=== PATIENT | female | born 1945 | race Caucasian/White ===

== ENCOUNTER → 2018-05-20 14:08 | Outpatient (CLI) | payer MEDICARE, OTHER, SELFPAY ==
[2018-05-20 15:08] LABS: Add Manual Diff / Slide Review NO; Eosinophils Percent Auto 2.2 % (2-4); Hematocrit 40.9 % (36-46); Hemoglobin 13.7 g/dL (12.0-16.0); Lymphocytes Percent Auto 55.2 % (25-40); Mean Corpuscular HGB Conc 33.6 % (30-36); Mean Corpuscular Hemoglobin 31.6 PG (26-34); Mean Corpuscular Volume 94.1 fL (80-100); Neutrophils Absolute Auto 1800 /uL (3000-5900); Neutrophils Percent Auto 33.6 % (50-75); Platelet Count 216 X10^3/uL (150-400); Red Blood Cell Count 4.35 X10^6/uL (4.0-5.2); Red Cell Distribution Width 13.3 % (11.6-14.8); White Blood Cell Count 5.3 X10^3/uL (4.5-11.0)
[2018-05-20 15:19] LABS: Alanine Aminotransferase 33 IU/L (9-52); Albumin Globulin Ratio 1.1 (1.0-2.8); Alkaline Phosphatase 121 U/L (38-126); Aspartate Aminotransferase 31 IU/L (14-36); Bilirubin Total 0.6 mg/dL (0.2-1.3); Blood Urea Nitrogen 18 mg/dL (7-17); Calcium 9.2 mg/dL (8.4-10.2); Carbon Dioxide 30 mmol/L (22-32); Chloride 101 mmol/L (98-107); Cholesterol 218 mg/dL (140-199); Estimated Glomerular Filt Rate > 60.0 mL/min (>60); Globulin 3.7 g/dL (1.7-4.1); Glucose 105 mg/dL (80-110); HDL Cholesterol 55 mg/dL (40-60); HEMOLYSIS 21 (0-50); LDL Cholesterol Calculated 146 mg/dL (<100); Potassium 3.1 mmol/L (3.4-5.1); Sodium 141 mmol/L (137-145); Total Protein 7.7 g/dL (6.3-8.2); Triglycerides 83 mg/dL (35-150)
[2018-05-20 16:36] LABS: TSH w/ Reflex to FT4 1.31 uIU/mL (0.47-4.68)
== END ==
PROVIDERS: PCP Family Medicine; Visit Provider Family Medicine
DX: R20.0 Anesthesia of skin (principal); I10 Essential (primary) hypertension
CPT/HCPCS: 36415; 80053; 80061; 84443; 85025

== ENCOUNTER → 2018-06-02 12:50 | Outpatient (CLI) | payer MEDICARE, OTHER, SELFPAY | PROVIDERS: Family Provider Family Medicine; PCP Family Medicine; Visit Provider Family Medicine | DX: G56.01 Carpal tunnel syndrome, right upper limb (principal) | CPT/HCPCS: 95885; 95886; 95911 ==

== ENCOUNTER 2018-08-27 21:01 | Emergency (ER) | payer MEDICARE, OTHER, SELFPAY ==
[2018-08-27 21:14] VITALS: BP 132/68; PULSE 123; RESP 26; TEMP 37.2; O2SAT 95; BMI 33.4
--- NOTE | 2018-08-27 21:26 | DI.RAD.S_ITS ---
PROCEDURE: XR CHEST 1V INDICATIONS: fever TECHNIQUE: One view of the chest was acquired. COMPARISON: None. FINDINGS: Surgical changes and devices: None. Lungs and pleura: No pleural effusions or pneumothorax. Patchy opacity noted in the left lung base tiny for aspiration versus pneumonia. Mediastinum: Mediastinal contours appear normal. Heart size is normal. Bones and chest wall: No suspicious bony lesions. Overlying soft tissues appear unremarkable. IMPRESSION: Left basilar patchy opacity concerning for aspiration versus pneumonia. Dictated by: Tiki Calix MD, PhD on 08/27/2018 at 21:44 Approved by: Tiki Calix MD, PhD on 08/27/2018 at 21:44
[2018-08-27 21:34] VITALS: BP 120/59; PULSE 97; RESP 21; O2SAT 96
--- NOTE | 2018-08-27 21:37 | ED_ITS ---
HPI - Abdominal Pain General Chief Complaint: Abdominal Pain Stated Complaint: STOMACH CRAMPS NO ENERGY TIRED ALL THE TIME Time Seen by Provider: 08/27/18 21:08 Source: patient Mode of arrival: ambulatory Limitations: no limitations History of Present Illness HPI narrative: Patient is 73-year-old female who presents with generalized weakness. She had her flu shot 4 days ago since then she has had shivering chills and generalized weakness. His all she has had decrease in appetite she forced herself to eat yesterday she has been able to keep down water. She has been unable to get warm and has been shaking. She denies any cough chest pain heart palpitations. She has had some mild abdominal discomfort a little bit worse this evening. She has put on 7 lb without eating. She denies any shortness of breath or orthopnea. Her abdominal pain comes and goes it is not localized it was all lower in her abdomen today it is more in the mid area. She denies painful or frequent urination. No blood in her stool. Onset (ago): day(s) Related Data Home Medications Medication Instructions Recorded Confirmed ASPIRIN (Aspirin) 81 mg PO Q DAY #0 04/14/12 08/27/18 cholecalciferol (vitamin D3) 5,000 5,000 unit PO DAILY 05/20/18 08/27/18 unit capsule flaxseed oil 1,000 mg capsule 1,000 mg PO DAILY 05/20/18 08/27/18 potassium chloride [Klor-Con M20] 1 tab PO DAILY 08/27/18 08/27/18 Previous Rx's Medication Instructions Recorded hydrochlorothiazide 25 mg tablet 25 mg PO QDAY #90 tab 05/20/18 omeprazole 20 mg capsule,delayed 20 mg PO QDAY #90 cap 05/20/18 release oxybutynin chloride ER 15 mg 15 mg PO QDAY #90 tab 05/20/18 tablet,extended release 24 hr levofloxacin [Levaquin] 750 mg PO DAILY #5 tab 08/28/18 Allergies Allergy/AdvReac Type Severity Reaction Status Date / Time oxycodone Allergy Mild DIZZY Verified 05/20/18 13:41 Review of Systems Review of Systems All systems reviewed & are unremarkable except as noted in HPI and below Constitutional Reports body ache(s), Reports chills, Reports fatigue, Reports fever(s), Denies frequent falls and Reports poor appetite ENT Ears, Nose, Mouth, and Throat: Denies change in voice, Denies dizziness, Denies neck pain and Denies sore throat Cardiovascular Denies chest pain, Denies irregular heart rhythm, Denies lightheadedness, Denies palpitations, Denies dyspnea, Denies dyspnea on exertion and Denies orthopnea Respiratory Denies cough, Denies dyspnea, Denies dyspnea on exertion and Denies wheezing Gastrointestinal Gastrointestinal: Reports as per HPI and Reports abdominal pain Genitourinary Denies hematuria, Denies flank pain, Denies urinary incontinence and Denies urinary urgency Musculoskeletal Denies neck pain and Denies numbness Integumentary/Breasts Denies pruritus, Denies erythema, Denies rash and Denies wounds Neurologic Denies behavioral changes, Denies confusion, Denies dizziness, Denies frequent falls and Denies numbness Psychiatric Denies behavioral changes and Denies confusion Endocrine Reports fatigue and Denies palpitations Allergic/Immunologic Denies wheezing [facility] Medical History GERD (gastroesophageal reflux disease) (Chronic) History of genitourinary disorders unknown (Chronic) Hypertension (Chronic) Surgical History History of partial hysterectomy (Acute) Status post surgery (06/15/11) Family History Father Chronic lung disease Mother Breast cancer Social History Smoking Status: Never smoker Comment: PCP: Dr. Islas Exam Initial Vital Signs Initial Vital Signs: Vital Signs Temperature 99.0 F 08/27/18 21:14 Pulse Rate 123 H 08/27/18 21:14 Respiratory Rate 26 H 08/27/18 21:14 Blood Pressure 132/68 08/27/18 21:14 Pulse Oximetry 95 08/27/18 21:14 GENERAL: Alert cooperative elderly female no acute distress nontoxic HEENT: Head atraumatic,EOMI, pupils reactive, face symmetric, dry mucous membranes, neck is supple no meningeal sign CARDIOVASCULAR: Regular rate and rhythm without murmurs, rubs or gallops. RESPIRATORY: Breath sounds equal bilaterally, no wheezes rales or rhonchi. ABDOMEN: Soft, minimal tenderness across the mid abdomen no right upper quadrant pain no lower abdominal pain : No CVA tenderness EXTREMITIES: Normal range of motion, no clubbing or edema. Neurovascularly intact NEUROLOGICAL: Alert and oriented x4.Normal gait and speech. Cranial nerves II through XII grossly intact. SKIN: Warm, dry, no laceration, no petechiae, no rashes or lesions. Scores CHADS-VASc Congestive heart failure: no Hypertension: yes Age 75 years or older: no Diabetes mellitus: no Stroke, TIA, or TE: no Vascular disease: no Age 65 to 74 years: yes Sex category (female): Female CHADS-VASc Score: 3 CURB-65 Confusion: No BUN >19mg/dL (>7mmol/L): Yes Respiratory rate greater or equal to 30: No SBP <90mmHg or DBP less or equal to 60mmHg: No Age 65 or Older: Yes CURB-65 Total: 2 Score 0-1 Outpatient care, Score 2 Inpt vs. Obs, Score 3 or over Inpt admit with ICU for score of 4-5 qSOFA Altered Mental Status (GCS <15): No Respiratory rate greater than/equal to 22: Yes Systolic blood pressure less than or equal to 100: No qSOFA Total: 1 0-1 Not High Risk 1-3 High risk SOFA SaO2/FIO2: 221-301 Platelets: >= 150 Bilirubin: < 1.2 mg/dL Hypotension: MAP >= 70 mmHg [place] Coma Scale: 15 Renal: Creatinine 1.2-1.9 mg/dL SOFA Score: 2 Course Course Narrative: SIRS, Sepsis, and Septic Shock Criteria from [employer] on All calculations should be rechecked by clinician prior to use RESULT SUMMARY: This patient meets sepsis criteria. Follow your guidelines for sepsis, which typically include aggressive fluid resuscitation, early, broad-spectrum anbiotics, ICU consultation, CVP evaluation, and occasionally pressors and transfusion. INPUTS: Temp >38?C (100.4?F) or < 36?C (96.8?F) ?> 0 = No Heart rate > 90 ?> 1 = Yes Respiratory rate > 20 or Boaz? < 32 mm Hg ?> 1 = Yes WBC > 12,000/mm?, < 4,000/mm?, or > 10% bands ?> 0 = No Suspected or present source of infection ?> 1 = Yes Lactic acidosis, SBP <90 or SBP drop ? 40 mm Hg of normal ?> 0 = No Severe sepsis with hypotension, despite adequate fluid resuscitation ?> 0 = No Evidence of ? 2 organs failing ?> 0 = No Orders Ordered: ED Orders 08/27/18 21:10 B Type Natriuretic Peptide Stat Complete Blood Count AUTO DIFF Stat Comprehensive Metabolic Panel Stat Lactate (Lactic Acid) Stat Lipase Stat Procalcitonin Stat Troponin & CK Cardiac Panel Stat 08/27/18 21:26 XR chest 1V Stat EKG-12 Lead Stat 08/27/18 21:50 Blood Culture Stat 08/27/18 22:17 CT abdomen pelvis w con Stat 08/27/18 23:15 Urinalysis Sreen (Dip Only) Stat Urine Microscopic Stat Discontinued Medications Sodium Chloride (Normal Saline 0.9%) 1,000 mls @ 150 mls/hr IV CONT FLAVIA Last Infusion: 08/28/18 00:12 Dose: 0 mls/hr Infusion: 08/27/18 22:24 Dose: 1,000 mls/hr Admin: 08/27/18 22:03 Dose: 150 mls/hr Levofloxacin (Levaquin) 750 mg in 150 mls @ 100 mls/hr IV NOW ONE Stop: 08/27/18 23:41 Last Infusion: 08/28/18 00:12 Dose: 0 mls/hr Admin: 08/27/18 22:19 Dose: 100 mls/hr Sodium Chloride (Normal Saline 0.9%) 1,000 mls @ 125 mls/hr IV CONT FLAVIA Last Infusion: 08/28/18 01:28 Dose: 125 mls/hr Admin: 08/28/18 00:38 Dose: 125 mls/hr Vital Signs - 8 hr 08/27/18 21:14 08/27/18 21:34 08/27/18 22:00 Temperature 99.0 F Pulse Rate 123 H 97 H 99 H Respiratory Rate 26 H 21 18 Blood Pressure 132/68 Blood Pressure [Left Arm] 120/59 L 114/62 Pulse Oximetry 95 96 99 08/27/18 23:00 08/27/18 23:49 08/28/18 00:38 Temperature 98.5 F Pulse Rate 89 90 83 Respiratory Rate 14 14 16 Blood Pressure Blood Pressure [Left Arm] 103/53 L 103/55 L 121/63 Pulse Oximetry 98 94 95 08/28/18 01:41 Temperature 98.4 F Pulse Rate 87 Respiratory Rate 22 Blood Pressure 120/59 L Blood Pressure [Left Arm] Pulse Oximetry 95 MDM - Abdominal Pain Medical Records Attestation: I reviewed the patient's medical records. Lab Data Attestation: I reviewed the patient's lab results. Result diagrams: 08/27/18 21:10 08/27/18 21:10 Lab Results 08/27/18 08/27/18 08/27/18 Range/Units 21:10 21:10 21:10 WBC 7.6 (4.5-11.0) X10^3/uL RBC 4.02 (4.0-5.2) X10^6/uL Hgb 12.6 (12.0-16.0) g/dL Hct 37.6 (36-46) % MCV 93.6 (80-100) fL MCH 31.3 (26-34) PG MCHC 33.4 (30-36) % RDW 13.7 (11.6-14.8) % Plt Count 163 (150-400) X10^3/uL Neut % (Auto) 79.2 H (50-75) % Lymph % (Auto) 12.2 L (25-40) % [place] % (Auto) 8.4 (3-14) % Eos % (Auto) 0.2 L (2-4) % Baso % (Auto) 0.0 (0-2) % Neut # (Auto) 6000 H (4127-0715) /uL Sodium 131 L (137-145) mmol/L Potassium 3.3 L (3.4-5.1) mmol/L Chloride 95 L (98-107) mmol/L Carbon Dioxide 26 (22-32) mmol/L BUN 24 H (7-17) mg/dL Creatinine 1.20 H (0.52-1.04) mg/dL Estimated GFR 44.0 L (>60) mL/min BUN/Creatinine Ratio 20.0 (6-22) Glucose 126 H (80-110) mg/dL Lactate (0.7-2.1) mmol/L Calcium 8.5 (8.4-10.2) mg/dL Total Bilirubin 0.7 (0.2-1.3) mg/dL AST 31 (14-36) IU/L ALT 52 (9-52) IU/L Alkaline Phosphatase 174 H (38-126) U/L Total Creatine Kinase 37 (30-135) U/L CK-MB (CK-2) TNP CK-MB (CK-2) Rel Index TNP Troponin I < 0.012 (0.01-0.034) ng/mL B-Natriuretic Peptide 225.0 H (<100) Total Protein 6.8 (6.3-8.2) g/dL Albumin 3.3 L (3.5-5.0) g/dL Globulin 3.5 (1.7-4.1) g/dL Albumin/Globulin Ratio 0.9 L (1.0-2.8) Lipase 16 L (23-300) U/L Procalcitonin 19.26 H (<0.5) ng/mL Urine Color Urine Appearance Urine pH (4.5-8.0) Ur Specific [place] (1.000-1.035) Urine Protein (Negative) Urine Glucose (UA) (Normal) g/dL Urine Ketones (NEGATIVE) Urine Occult Blood (Negative) Urine Nitrate (Negative) Urine Bilirubin (NEGATIVE) Urine Urobilinogen (0.2) E.U./dL Ur Leukocyte Esterase (NEGATIVE) Urine RBC Urine WBC (0-5/HPF) Ur Squamous Epith Cells Urine Bacteria (None) Ur Culture Indicated? Micro UA Comment 08/27/18 08/27/18 Range/Units 21:10 23:15 WBC (4.5-11.0) X10^3/uL RBC (4.0-5.2) X10^6/uL Hgb (12.0-16.0) g/dL Hct (36-46) % MCV (80-100) fL MCH (26-34) PG MCHC (30-36) % RDW (11.6-14.8) % Plt Count (150-400) X10^3/uL Neut % (Auto) (50-75) % Lymph % (Auto) (25-40) % [place] % (Auto) (3-14) % Eos % (Auto) (2-4) % Baso % (Auto) (0-2) % Neut # (Auto) (5996-2447) /uL Sodium (137-145) mmol/L Potassium (3.4-5.1) mmol/L Chloride (98-107) mmol/L Carbon Dioxide (22-32) mmol/L BUN (7-17) mg/dL Creatinine (0.52-1.04) mg/dL Estimated GFR (>60) mL/min BUN/Creatinine Ratio (6-22) Glucose (80-110) mg/dL Lactate 0.9 (0.7-2.1) mmol/L Calcium (8.4-10.2) mg/dL Total Bilirubin (0.2-1.3) mg/dL AST (14-36) IU/L ALT (9-52) IU/L Alkaline Phosphatase (38-126) U/L Total Creatine Kinase (30-135) U/L CK-MB (CK-2) CK-MB (CK-2) Rel Index Troponin I (0.01-0.034) ng/mL B-Natriuretic Peptide (<100) Total Protein (6.3-8.2) g/dL Albumin (3.5-5.0) g/dL Globulin (1.7-4.1) g/dL Albumin/Globulin Ratio (1.0-2.8) Lipase (23-300) U/L Procalcitonin (<0.5) ng/mL Urine Color Yellow Urine Appearance Clear Urine pH 5.5 (4.5-8.0) Ur Specific [place] <=1.005 (1.000-1.035) Urine Protein Trace H (Negative) Urine Glucose (UA) Negative (Normal) g/dL Urine Ketones Negative (NEGATIVE) Urine Occult Blood Trace-lysed (Negative) Urine Nitrate Negative (Negative) Urine Bilirubin Negative (NEGATIVE) Urine Urobilinogen 0.2 (0.2) E.U./dL Ur Leukocyte Esterase Negative (NEGATIVE) Urine RBC Not Reportable Urine WBC 1-5/hpf (0-5/HPF) Ur Squamous Epith Cells 0-1 /hpf Urine Bacteria Occasional (0-1) (None) Ur Culture Indicated? Cult not indicated Micro UA Comment Not Reportable Point of care testing: Urine Dip Bedside Urine Glucose Negative Bedside Urine Bilirubin - Negative Bedside Urine Ketone - Negative Urine Specific [place] 1.010 Bedside Urine Occult Blood - Negative Bedside Urine pH 6.0 Bedside Urine Protein +/- 15 Bedside Urine Urobilinogen - Negative Bedside Urine Nitrite - Negative Bedside Urine Leukocytes - Negative Esterase Imaging Data Chest x-ray: Radiologist's impression: PROCEDURE: XR CHEST 1V INDICATIONS: fever TECHNIQUE: One view of the chest was acquired. COMPARISON: None. FINDINGS: Surgical changes and devices: None. Lungs and pleura: No pleural effusions or pneumothorax. Patchy opacity noted in the left lung base tiny for aspiration versus pneumonia. Mediastinum: Mediastinal contours appear normal. Heart size is normal. Bones and chest wall: No suspicious bony lesions. Overlying soft tissues appear unremarkable. IMPRESSION: Left basilar patchy opacity concerning for aspiration versus pneumonia. 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 No evidence of obstructive uropathy. 8 cm left lower abdominal wall hernia containing loop of bowel with no bowel obstruction. No diverticulitis or colitis. Normal appendix. Status post hysterectomy. Moderately size hiatal her hernia containing proximal stomach ECG Data Attestation: I personally reviewed and interpreted this ECG as follows: Prior ECG tracings: available for review Interpretation: Irregular AFib rate 105 AFib new from previous EKG EKG 2.: Atrial fibrillation rate 86 P waves are not identified no ischemia MDM Narrative Medical decision making narrative: Patient has had rigors throughout the week. She is dehydrated with increased creatinine and BUN. She has no leukocytosis no symptoms is or signs of pneumonia but has possible pneumonia on x-ray. Complaining of abdominal discomfort but no specific abdominal pain. Urine is positive for leukocytes, CT does show inflammation around the left kidney possible early pyelonephritis. She does not have signs or symptoms of UTI in urine is negative. She does again have a bacterial infection she has procalcitonin of 19. She has no headache or neck pain to suggest meningitis She also has new onset AFib she takes an aspirin daily as and took 1 this morning. 1:10 a.m.: I spoke with Dr. Ramsey. Concern for infection but unsure where the infection is. She does not have signs or symptoms but she does have a fever and chills all an elevated procalcitonin. She also has new onset atrial fibrillation which is currently rate controlled. She has a low chads score and takes aspirin. Discussed admission versus close follow-up. At this time it was elected to have close follow-up is with PCP next week. I discussed all findings with the patient , Education has been performed regarding treatment plan, diagnosis, warning signs and symptoms and all concerns have been addressed. Verbally agree with and understood all of the above. Discharge Plan Departure Patient Disposition: Home Clinical Impression: Pneumonia, Atrial fibrillation Discharge Date/Time: 08/28/18 01:43 Interventions: ED Discharge Assessment Last Done: 08/28/18 01:41 Instructions: Pneumonia-Adult, Atrial Fibrillation Activity Restrictions/Additional Instructions: *You have been diagnosed with possible pneumonia and new onset atrial fibrillation *What to do: Chest x-ray does show possible pneumonia and CT shows possible kidney infection however you have a no signs or symptoms for this. You are dehydrated and have new onset atrial fibrillation. You will need close all follow up with your doctor. *Continue to take medications as directed Levaquin 750 mg for 5 days-faxed to [facility] in [facility] *Follow up with your primary care provider in 2-3 days, call Wednesday to schedule appointment soon as possible *Return to ER if you should have increasing fatigue, confusion, heart palpitations, dizziness, lightheadedness, inability to tolerate oral fluids or any new, worsening or concerning symptoms Prescriptions: New levofloxacin [Levaquin] 750 mg tablet 750 mg PO DAILY Qty: 5 RF: 0 No Action ASPIRIN (Aspirin) 81 mg PO Q DAY Qty: 0 RF: 0 flaxseed oil 1,000 mg capsule 1,000 mg PO DAILY RF: 0 cholecalciferol (vitamin D3) 5,000 unit capsule 5,000 unit PO DAILY RF: 0 oxybutynin chloride 15 mg tablet extended release 24hr 15 mg PO QDAY Qty: 90 RF: 3 omeprazole 20 mg capsule,delayed release(DR/EC) 20 mg PO QDAY Qty: 90 RF: 3 hydrochlorothiazide 25 mg tablet 25 mg PO QDAY Qty: 90 RF: 3 potassium chloride [Klor-Con M20] 20 mEq tablet,ER particles/crystals 1 tab PO DAILY RF: 0 Referrals: Ki Islas MD [Primary Care Provider] -
[2018-08-27 21:38] LABS: Add Manual Diff / Slide Review NO; Eosinophils Percent Auto 0.2 % (2-4); Hematocrit 37.6 % (36-46); Hemoglobin 12.6 g/dL (12.0-16.0); Lymphocytes Percent Auto 12.2 % (25-40); Mean Corpuscular HGB Conc 33.4 % (30-36); Mean Corpuscular Hemoglobin 31.3 PG (26-34); Mean Corpuscular Volume 93.6 fL (80-100); Monocytes Percent Auto 8.4 % (3-14); Neutrophils Absolute Auto 6000 /uL (3000-5900); Neutrophils Percent Auto 79.2 % (50-75); Platelet Count 163 X10^3/uL (150-400); Red Blood Cell Count 4.02 X10^6/uL (4.0-5.2); Red Cell Distribution Width 13.7 % (11.6-14.8); White Blood Cell Count 7.6 X10^3/uL (4.5-11.0)
[2018-08-27 21:40] LABS: Lactate (Lactic Acid) 0.9 mmol/L (0.7-2.1)
[2018-08-27 21:46] LABS: Alanine Aminotransferase 52 IU/L (9-52); Albumin 3.3 g/dL (3.5-5.0); Albumin Globulin Ratio 0.9 (1.0-2.8); Alkaline Phosphatase 174 U/L (38-126); Aspartate Aminotransferase 31 IU/L (14-36); Bilirubin Total 0.7 mg/dL (0.2-1.3); Blood Urea Nitrogen 24 mg/dL (7-17); Calcium 8.5 mg/dL (8.4-10.2); Carbon Dioxide 26 mmol/L (22-32); Chloride 95 mmol/L (98-107); Creatine Kinase 37 U/L (30-135); Globulin 3.5 g/dL (1.7-4.1); Glucose 126 mg/dL (80-110); HEMOLYSIS < 15 (0-50); Lipase 16 U/L (23-300); Potassium 3.3 mmol/L (3.4-5.1); Sodium 131 mmol/L (137-145); Total Protein 6.8 g/dL (6.3-8.2)
[2018-08-27 21:58] LABS: Troponin I < 0.012 ng/mL (0.01-0.034)
[2018-08-27 22:00] VITALS: BP 114/62; PULSE 99; RESP 18; O2SAT 99
[2018-08-27 22:02] LABS: Procalcitonin 19.26 ng/mL (<0.5)
[2018-08-27] MEDS: SODIUM CHLORIDE 0.9% 1,000 ML 150 ML IV (22:03)
--- NOTE | 2018-08-27 22:17 | DI.CT.S_ITS ---
PROCEDURE: CT ABDOMEN PELVIS W CON INDICATIONS: lower ab pain with fever TECHNIQUE: After the administration of oral and intravenous contrast, 5 mm thick sections acquired from the diaphragms to the symphysis. 5 mm thick coronal and sagittal reformats were performed. For radiation dose reduction, the following was used: automated exposure control, adjustment of mA and/or kV according to patient size. COMPARISON: None. FINDINGS: Image quality: Excellent. ABDOMEN: Lung bases: Small left pleural effusion is present. Heart size is normal. Solid organs: Liver is normal in size and enhancement. Gallbladder is within normal limits. Biliary system is non-dilated. There is a partially exophytic mass involving the pancreatic tail measuring roughly 20 mm with a region of calcification medially. Pancreas otherwise enhances normally. Spleen is normal in size and enhancement. No adrenal nodules. Scattered regions of mild patchy hypoenhancement within the bilateral renal parenchyma. Mild perinephric fat stranding bilaterally. Peritoneum and bowel: Large hiatal hernia. Stomach, small bowel, and colon loops are normal in caliber and wall thickness. Normal appendix. Trace free fluid in the pelvis. No pneumoperitoneum. Nodes and vessels: No retroperitoneal or mesenteric adenopathy. Aorta and inferior vena cava are normal in caliber. Miscellaneous: 83 mm diameter left anterior pelvic wall hernia containing small bowel. No evidence of bowel strangulation, nor obstruction. PELVIS: Genitourinary: Bladder wall thickness is normal. Miscellaneous: No inguinal hernias or adenopathy. Bones: No suspicious bony lesions. No vertebral body compression fractures. IMPRESSION: 1. Bilateral pyelonephritis. 2. Pancreatic mass, possibly represent malignancy. 3. Small bowel containing anterior pelvic wall hernia with no evidence of bowel strangulation, nor obstruction. 4. Normal appendix. 5. Large hiatal hernia. 6. Small left pleural effusion. 6. Findings discussed with Dr. Mcdonald on 08.28.18 at 0915 hrs. Dictated by: Missael Claire M.D. on 08/28/2018 at 9:15 Approved by: Missael Claire M.D. on 08/28/2018 at 9:21
[2018-08-27] MEDS: levoFLOXacin 750 MG/150 ML PIGGYBACK 100 MG IV (22:19)
[2018-08-27 23:00] VITALS: BP 103/53; PULSE 89; RESP 14; O2SAT 98
[2018-08-27 23:36] LABS: Bacteria Urine Occasional (0-1); Squamous Epithelial Cell Urine 0-1 /HPF; WBC Urine 1-5/HPF (0-5/HPF)
[2018-08-27 23:37] LABS: Culture Indicated Urine Cult Not Indicated
[2018-08-27 23:49] VITALS: BP 103/55; PULSE 90; RESP 14; O2SAT 94
[2018-08-27 23:58] LABS: Appearance Urine UA CLEAR; Bilirubin Urine UA NEGATIVE (NEGATIVE); Color Urine UA YELLOW; Glucose Urine UA NEGATIVE (Normal); Ketones Urine UA NEGATIVE (NEGATIVE); Leukocyte Esterase Urine UA NEGATIVE (NEGATIVE); Nitrite Urine UA NEGATIVE (Negative); Occult Blood Urine UA TRACE-LYSED (Negative); Protein Urine UA TRACE (Negative); Specific Gravity Urine UA <=1.005 (1.000-1.035); Urobilinogen Urine UA 0.2 E.U./dL (0.2); pH Urine UA 5.5 (4.5-8.0)
[2018-08-28 00:38] VITALS: BP 121/63; PULSE 83; RESP 16; TEMP 36.9; O2SAT 95
[2018-08-28] MEDS: SODIUM CHLORIDE 0.9% 1,000 ML 125 ML IV (00:38)
[2018-08-28 01:41] VITALS: BP 120/59; PULSE 87; RESP 22; TEMP 36.9; O2SAT 95
[2018-08-29 03:50] LABS: Enterococcus species Not Detected (Not Detect); Listeria monocytogenes Not Detected (Not Detect); Staphylococcus species Not Detected (Not Detect); Streptococcus agalactiae (Gr B Not Detected (Not Detect); Streptococcus pneumonia Not Detected (Not Detect); Streptococcus pyogenes (Gr A) Not Detected (Not Detect); Streptococcus species Not Detected (Not Detect)
[2018-08-29 03:51] LABS: Acinetobacter baumannii Not Detected (Not Detect); Enterobacteriaceae species Detected (Not Detect); KPC (carbapenem-resist gene) Not Detected (Not Detect)
[2018-08-29 03:52] LABS: Candida albicans Not Detected (Not Detect); E. coli Detected (Not Detect); Enterobacter cloacae complex Not Detected (Not Detect); Haemophilus influenzae Not Detected (Not Detect); Neisseria meningitidis Not Detected (Not Detect); Proteus species Not Detected (Not Detect); Pseudomonas aeruginosa Not Detected (Not Detect); Serratia marcescens Not Detected (Not Detect)
[2018-08-29 03:53] LABS: Candida glabrata Not Detected (Not Detect); Candida krusei Not Detected (Not Detect); Candida parapsilosis Not Detected (Not Detect); Candida tropicalis Not Detected (Not Detect)
== END 2018-08-28 01:43 | disposition home or self-care (01) ==
PROVIDERS: Emergency Provider Emergency Medicine; Family Provider Family Medicine; PCP Family Medicine
DX: J18.9 Pneumonia, unspecified organism (principal); I48.91 Unspecified atrial fibrillation
CPT/HCPCS: 36415; 36591; 71045; 74177; 80053; 81003; 81015; 82550; 83605; 83690; 83880; 84145; 84484; 85025; 87040; 87077; 87150; 87186; 87205; 93005; 93010; 96360; 99285; J1956; Q9967

== ENCOUNTER → 2018-08-29 14:09 | Outpatient (CLI) | payer MEDICARE, OTHER, SELFPAY ==
[2018-08-29 15:22] LABS: Hematocrit 40.7 % (36-46); Hemoglobin 13.8 g/dL (12.0-16.0); Mean Corpuscular HGB Conc 33.9 % (30-36); Mean Corpuscular Hemoglobin 31.2 PG (26-34); Mean Corpuscular Volume 92.2 fL (80-100); Platelet Count 190 X10^3/uL (150-400); Red Blood Cell Count 4.41 X10^6/uL (4.0-5.2); Red Cell Distribution Width 14.2 % (11.6-14.8); White Blood Cell Count 6.1 X10^3/uL (4.5-11.0)
[2018-08-29 15:24] LABS: BUN Creatinine Ratio 17.8 (6-22); Blood Urea Nitrogen 16 mg/dL (7-17); Calcium 9.2 mg/dL (8.4-10.2); Carbon Dioxide 32 mmol/L (22-32); Chloride 93 mmol/L (98-107); Estimated Glomerular Filt Rate > 60.0 mL/min (>60); Glucose 97 mg/dL (80-110); HEMOLYSIS < 15 (0-50); Potassium 3.6 mmol/L (3.4-5.1); Sodium 136 mmol/L (137-145)
[2018-08-29 15:44] LABS: Procalcitonin 4.64 ng/mL (<0.5)
[2018-08-29 16:22] LABS: Total Cells Counted 100
[2018-08-29 16:23] LABS: Neutrophils Absolute Manual 5368 /uL (3000-5900); RBC Morphology Normal Morphology
[2018-08-31 15:12] LABS: Cancer (Carbohydrate) Ag 19-9 12 U/mL (< 34)
== END ==
PROVIDERS: Family Provider Family Medicine; PCP Family Medicine; Visit Provider Family Medicine
DX: J18.9 Pneumonia, unspecified organism (principal); I10 Essential (primary) hypertension; K86.9 Disease of pancreas, unspecified; R97.8 Other abnormal tumor markers
CPT/HCPCS: 36415; 80048; 84145; 85025; 86301

== ENCOUNTER → 2018-09-09 12:33 | Outpatient (CLI) | payer MEDICARE, OTHER, SELFPAY ==
--- NOTE | 2018-09-09 12:35 | DI.ECHO.S_ITS ---
[facility]---------+ [facility] +---------+ : : [address] : : : : [id number] : : : : Phone: [phone] Echocardiogram Report + + :Name: CLARIBEL SANCHEZ Study Date: 09/09/2018 Height: 66 in : :[facility] Exam Location: IS Weight: 195 lb : : Gender: Female BSA: 2.0 m2 : :: 1945 Age: 73 yrs BP: 130/80 mmHg: :Reason For Study: New onset A-Fib : :Ordering Physician: Dr. Emerson : :[place] Performed By: Hailee Page : + + Interpretation Summary 1) Normal left ventricular thickness, size, wall motion, and systolic function (EF 60-65%). 2) Mildly enlarged right ventricle with mildly reduced function. 3) Diastolic parameters suggest a pseudonormalization pattern, consistent with probable elevated filling pressures. 4) The left atrium is severely dilated. The right atrium is moderately dilated. 5) There is mild aortic stenosis (mean gradient 9mmHg, valve area 1.6cm2, severity ratio 0.4). 6) No prior Echo available for comparison. Procedure: A two-dimensional transthoracic echocardiogram with color flow and Doppler was performed. The study quality was technically adequate. There is no prior echocardiogram noted for this patient. The patient was in atrial fibrillation with heart rates between 63-82 bpm during the exam. Left Ventricle: The left ventricle is normal in size. Left ventricular wall thickness is normal. The ejection fraction is estimated to be 60-65%. Left ventricular systolic function is normal without focal wall motion abnormalities. Diastolic parameters suggest a pseudonormalization pattern, consistent with probable elevated filling pressures. Right Ventricle: The right ventricle is mildly dilated. Right ventricular systolic function is mildly reduced. Atria: The left atrium is severely dilated. The right atrium is moderately dilated. There is no Doppler evidence for an interatrial shunt. Mitral Valve: The mitral valve leaflets are mildly calcified. There is mild mitral annular calcification. There is trace mitral regurgitation. Aortic Valve: The aortic valve is trileaflet. The aortic valve is mildly calcified. Leaflet mobility is minimally reduced. There is mild aortic stenosis. No aortic regurgitation is present. Tricuspid Valve: The tricuspid valve is normal in structure and function. There is trace tricuspid regurgitation. The right ventricular systolic pressure is estimated to be at least 28 mmHg based on an estimated right atrial pressure of 8 mm Hg. Pulmonic Valve: The pulmonic valve is not well visualized. There is a trace or physiologic amount of pulmonic regurgitation. Great Vessels: The aortic root is normal size. The ascending aorta is at the upper limits of normal in size. The pulmonary artery is not well visualized, but is probably normal size. The IVC is dilated (diameter is greater than 2.1 cm) yet it collapses greater than 50% with a sniff. This suggests a right atrial pressure of 8 mm Hg. Pericardium/ Pleura There is no pericardial effusion. There is no pleural effusion. MMode/2D Measurements & Calculations LVIDd: 4.6 cm LVOT diam: 2.2 cm LVIDs: 3.2 cm Ao root diam: 2.9 cm FS: 30.0 % asc Aorta Diam: 3.4 cm EPSS: 0.51 cm IVSd: 0.98 cm LVPWd: 0.88 cm LV fox. diameter/BSA (cm/m^2): 2.3 LV sys. diameter/BSA (cm/m^2): 1.6 LA A2 area: 29.6 cm2 RA long axis: 5.4 cm LA A4 area: 31.4 cm2 RA area: 23.3 cm2 LA length (vol): 6.2 cm RA vol: 85.5 ml LA vol: 127.2 ml RA : 43.2 ml/m2 LA vol index: 64.3 ml/m2 IVC diam: 2.4 cm TAPSE: 1.8 cm Doppler Measurements & Calculations Ao V2 max: 193.5 cm/sec LVOT Max Inocencio: 77.5 cm/sec Ao V2 mean: 140.5 cm/sec LV V1 max P.4 mmHg Ao max P.0 mmHg LV V1 VTI: 15.6 cm Ao mean P.6 mmHg CANDIE(I,D): 1.6 cm2 Ao V2 VTI: 39.0 cm CANDIE(V,D): 1.6 cm2 sev ratio: 0.40 CANDIE indexed to BSA (cm^2/m^2): 0.79 MV E max inocencio: 128.5 cm/sec TR max inocencio: 220.8 cm/sec Med Peak E' Inocencio: 8.1 cm/sec TR max P.5 mmHg E/E' med: 16.0 PA V2 max: 60.8 cm/sec Lat Peak E' Inocencio: 8.5 cm/sec PA V2 mean: 41.8 cm/sec E/E' lat: 15.1 PA mean P.78 mmHg E/e' average: 15.5 PA Accel Time: 0.09 sec MV P1/2t: 50.2 msec MVA(VTI): 2.2 cm2 MV V2 mean: 65.8 cm/sec MV P1/2t max inocencio: 127.7 cm/sec MV mean P.4 mmHg MVA(P1/2t): 4.4 cm2 MV V2 VTI: 27.3 cm Reading Physician:05:21 PM
== END ==
PROVIDERS: PCP Family Medicine; Visit Provider Family Medicine
DX: I35.0 Nonrheumatic aortic (valve) stenosis (principal); I48.91 Unspecified atrial fibrillation
CPT/HCPCS: 93306

== ENCOUNTER → 2018-10-12 10:56 | Outpatient (CLI) | payer MEDICARE, OTHER, SELFPAY ==
--- NOTE | 2018-10-28 14:28 | PM.CARDMON.1 ---
Pattern Drafter Report Referral & Results Date Patient Seen: 10/12/18 Requesting provider: Ki Islas Indication: Atrial fibrillation Duration of monitoring (days): 7 Diary information: No diary entries or patient triggered events were recorded Data: Patient was in atrial fibrillation for the duration of the monitoring period. Minimum heart rate was 52 beats per minute at 05:51 on 10/15/2018 Maximum heart rate was 192 beats per minute at 19:00 on 10/15/2018 Less than 1% of identified beats were ventricular ectopic in origin Patient's overall heart rate was less than 100 for the majority of the time Impression: Persistent/chronic atrial fibrillation with what appears to be adequate rate control Occasional PVCs Clinical correlation suggested
== END ==
PROVIDERS: PCP Family Medicine; Visit Provider Family Medicine
DX: I48.91 Unspecified atrial fibrillation (principal)
CPT/HCPCS: 0296T; 0298T

== ENCOUNTER → 2018-10-20 09:10 | Outpatient (CLI) | payer MEDICARE, OTHER, SELFPAY ==
--- NOTE | 2018-10-20 10:31 | PM.TREADMILL ---
Cardiac Stress Test Report Referral & Results Date Patient Seen: 10/20/18 Requesting provider: Ki Islas Indication: New onset atrial fibrillation Rest ECG: AFib with controlled ventricular response at rest Procedure Note: Today following both written and verbal informed consent the patient was exercised according to a standard Garo protocol patient went for a total of 4 min 23 sec achieving a maximum heart rate of 196 maximum systolic blood pressure of 180. This is approximately 7.0 METS. Exercise was terminated at this point because of patient was unable to keep up with the treadmill safely. Patient was also given Cardiolite through a previously started Hep-Lock IV by the nuclear power reactor operator approximately 1 minute prior to the cessation of exercise. Patient was quickly tachycardic with her atrial fibrillation. Occasional PVCs including a single cup and a single triplets were identified No clear ST-T segment changes. She did have some upsloping ST segment depression in lateral leads during exercise that rapidly resolved with cessation of activity suggesting a nonischemic nature Functional aerobic impairment rated 0 on the sedentary scale Impression: No evidence of ischemia on ECG tracing Tachycardic ventricular response to activity in the setting of atrial fibrillation Average exercise capacity Perfusion imaging to be reported separate Dysrhythmia as above. Please note: Actual ECG tracings can be found in the PACS system.
--- NOTE | 2018-10-24 08:03 | DI.NM.S_ITS ---
DATE OF SERVICE: 10/20/2018 PROCEDURE: Exercise perfusion study. INDICATION: New onset atrial fibrillation. RADIOPHARMACEUTICAL: 25.9 mCi technetium-99 Myoview IV was injected at stress and 25.3 mCi technetium-99 Myoview IV was injected at rest. CARDIAC STRESS: The patient underwent an exercise perfusion study under the supervision of an attending staff. She walked on Garo protocol for 4 minutes and 23 seconds and achieved a maximum heart rate of about 186, which was 120% of target heart rate. There was normal blood pressure response. The patient was unable to walk on treadmill. Baseline EKG revealed atrial fibrillation, and rate was about [address]-T changes. There was enhanced chronotropic response. The patient developed very fast heart rate during exercise. She remained in atrial fibrillation. No new significant arrhythmias. At peak exercise, there was about 1 to 2-mm some down-sloping ST depression in lead V4 to V6, which got quickly returned back to baseline within 1 minute in recovery. RAW DATA: There was breast shadow seen. The patient's weight is about 205 pounds. GATED STUDY: Stress LV ejection fraction was 70% percent without any obvious wall motion abnormalities. No transient ischemic dilatation. TID ratio 1.13, which is within normal limits. Resting end-diastolic volume 92 mL. Lung/heart ratio is 0.40, which is within normal limits. MYOCARDIAL PERFUSION: Stress supine and resting supine images revealed large- sized moderately decreased perfusion of anterior wall, anterior apex, distal anterolateral wall, which got completed resolved during prone images, suggestive of breast tissue attenuation artifact. CONCLUSION: I will call this study a normal myocardial perfusion study with evidence of breast tissue attenuation artifact which got resolved during prone images. The patient has baseline atrial fibrillation. During exercise, the patient has an enhanced chronotropic response with very fast ventricular rate up to 186 beats per minute. Functional aerobic impairment positive 20%. She achieved 7 minutes of workload. Please consider better rate control approach and Cardiology evaluation. Aidee Simons - DINESH/serjio/ts doc#: [id number]/job#: [id number] dd: 10/21/2018 12:40:00 dt: 10/22/2018 07:24:00 DICTATING MD/COPIES TO: Lucas Salinas MD COPIES MNE: SUSAN
== END ==
PROVIDERS: PCP Family Medicine; Visit Provider Family Medicine
DX: I48.91 Unspecified atrial fibrillation (principal)
CPT/HCPCS: 78452; 93016; 93017; 93018; A9502

== ENCOUNTER 2018-11-16 10:48 | Emergency (ER) | payer MEDICARE, OTHER, SELFPAY ==
[2018-11-16 10:55] VITALS: BP 143/76; PULSE 92; RESP 15; TEMP 36.6; O2SAT 96; BMI 32.3
--- NOTE | 2018-11-16 12:00 | ED_ITS ---
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 Patient was discharged the next day. She was told by the surgeon that everything went well. She states that since Wednesday she has had pain around her right hip. No fevers. She states she does not have any discomfort when she is lying still but does have discomfort when she moves. No problems breathing. No abdominal pain. Did have a bowel movement recently. No urinary symptoms. Related Data Home Medications Medication Instructions Recorded Confirmed cholecalciferol (vitamin D3) 5,000 5,000 unit PO DAILY 05/20/18 11/16/18 unit capsule flaxseed oil 1,000 mg capsule 1,000 mg PO DAILY 05/20/18 11/16/18 potassium chloride [Klor-Con M20] 1 tab PO DAILY 08/27/18 11/16/18 hydrochlorothiazide 25 mg PO DAILY 11/16/18 11/16/18 hydrocodone-acetaminophen 1 tab PO PRN PRN 11/16/18 11/16/18 omeprazole 20 mg PO DAILY 11/16/18 11/16/18 oxybutynin chloride 15 mg PO DAILY 11/16/18 11/16/18 polyethylene glycol 3350 17 g PO PRN PRN 11/16/18 11/16/18 Previous Rx's Medication Instructions Recorded apixaban 5 mg tablet 5 mg PO BID #180 tab 09/05/18 docusate sodium [Colace] 100 mg PO DAILY PRN #14 cap 11/16/18 hydrocodone-acetaminophen [[place]] 1 tab PO Q4-6H PRN #10 tab 11/16/18 Allergies Allergy/AdvReac Type Severity Reaction Status Date / Time oxycodone Allergy Mild DIZZY Verified 11/16/18 10:55 Review of Systems Constitutional Denies fatigue and Denies fever(s) Cardiovascular Denies chest pain and Denies dyspnea Respiratory Denies dyspnea Gastrointestinal Gastrointestinal: Denies abdominal pain, Denies nausea and Denies vomiting Genitourinary Reports hematuria and Denies dysuria Musculoskeletal Denies myalgias, Denies deformity and Reports arthralgias (Right hip) Integumentary/Breasts Denies rash Endocrine Denies fatigue Hematologic/Lymphatic Comments: Not on anticoagulation PFSH Social History marital status: Smoking Status: Never smoker alcohol intake: never substance use type: does not use Exam Initial Vital Signs Initial Vital Signs: Vital Signs Temperature 97.9 F 11/16/18 10:55 Pulse Rate 92 H 11/16/18 10:55 Respiratory Rate 15 11/16/18 10:55 Blood Pressure 143/76 H 11/16/18 10:55 Pulse Oximetry 96 11/16/18 10:55 Const General: cooperative, healthy appearing, comfortable, well developed, well groomed and No acute distress Orientation: alert, awake and oriented x3 HENMT Head: normal to inspection and normocephalic Resp Effort & Inspection: normal respiratory effort Auscultation: clear to auscultation bilaterally Cardio Rate: regular rate Rhythm: regular rhythm Pulses: radial pulses present GI Inspection: non-distended Palpation: soft and No tender Back/Spine/Pelvis Back: No CVA tenderness Skin Lesions: no lesions Rashes: no rashes Neuro General: alert, awake and oriented x3 Cognition: normal cognition Motor: muscle tone normal throughout Sensory Exam: no sensory deficits noted Extrem General: normal to inspection and capillary refill normal Other: Patient able to flex and extend the right hip however does have pain over the lateral aspect of this. Right knee unremarkable. Right ankle unremarkable. Psych Appearance: grossly normal and well kempt Course Orders Ordered: ED Orders 11/16/18 12:27 Urine Culture Stat Urine Microscopic Stat Vital Signs - 8 hr 11/16/18 10:55 11/16/18 12:31 11/16/18 13:21 Temperature 97.9 F Pulse Rate 92 H 65 78 Respiratory Rate 15 18 Blood Pressure 143/76 H 138/72 Blood Pressure [Left Arm] 119/76 Pulse Oximetry 96 96 96 MDM - Abdominal Pain Lab Data Lab Results 11/16/18 Range/Units 12:27 Urine RBC 10-30/hpf H (0-5/HPF) Urine WBC 5-10/hpf H (0-5/HPF) Urine Bacteria None seen (None) Ur Culture Indicated? Specimen cultured Micro UA Comment Not Reportable Point of care testing: Urine Dip Bedside Urine Glucose Negative Bedside Urine Bilirubin - Negative Bedside Urine Ketone - Negative Urine Specific [place] 1.015 Bedside Urine Occult Blood +++ Bedside Urine pH 6.5 Bedside Urine Protein +/- 15 Bedside Urine Urobilinogen - Negative Bedside Urine Nitrite - Negative Bedside Urine Leukocytes ++ 125 Esterase MDM Narrative Medical decision making narrative: The symptoms that brought the patient in today or over the lateral aspect of the right hip below the iliac crest. It is not specifically tender over the greater trochanter but it is in this area. I have low suspicion for DVT. Patient has no urinary symptoms. Does have some blood and white blood cells in her urine however will wait on treating with any antibiotics until culture results. No rashes over the area concerning for zoster. I do suspect musculoskeletal. I doubt intra-abdominal pathology. I discussed all this with the patient and the . They are given return precautions. They expressed understanding and agreement with plan. Patient currently has a prescription for hydrocodone despite her allergy. Discharge Plan Departure Patient Disposition: Home Clinical Impression: Acute pain of right hip Interventions: ED Discharge Assessment Last Done: 11/16/18 13:21 Instructions: DI for Hip Pain Activity Restrictions/Additional Instructions: You are not restricted on any of your activity. Continue all of your medications. Return to the emergency department for any new or worsening symptoms Prescriptions: New hydrocodone-acetaminophen [[place]] 5-325 mg tablet 1 tab PO Q4-6H PRN (Reason: pain) Qty: 10 RF: 0 docusate sodium [Colace] 100 mg capsule 100 mg PO DAILY PRN (Reason: constipation) Qty: 14 RF: 0 No Action flaxseed oil 1,000 mg capsule 1,000 mg PO DAILY RF: 0 cholecalciferol (vitamin D3) 5,000 unit capsule 5,000 unit PO DAILY RF: 0 apixaban [Eliquis] 5 mg tablet 5 mg PO BID Qty: 180 RF: 3 polyethylene glycol 3350 17 gram/dose powder 17 g PO PRN PRN (Reason: Constipation) RF: 0 oxybutynin chloride 15 mg tablet extended release 24hr 15 mg PO DAILY RF: 0 hydrochlorothiazide 25 mg tablet 25 mg PO DAILY RF: 0 hydrocodone-acetaminophen 5-325 mg tablet 1 tab PO PRN PRN (Reason: pain) RF: 0 omeprazole 20 mg capsule,delayed release(DR/EC) 20 mg PO DAILY RF: 0 potassium chloride [Klor-Con M20] 20 mEq tablet,ER particles/crystals 1 tab PO DAILY RF: 0
[2018-11-16 12:31] VITALS: BP 119/76; PULSE 65; O2SAT 96
[2018-11-16 12:39] LABS: Bacteria Urine None Seen
[2018-11-16 12:52] LABS: Culture Indicated Urine Specimen Cultured; RBC Urine 10-30/HPF (0-5/HPF); WBC Urine 5-10/HPF (0-5/HPF)
[2018-11-16 13:21] VITALS: BP 138/72; PULSE 78; RESP 18; O2SAT 96
== END 2018-11-16 13:40 | disposition home or self-care (01) ==
PROVIDERS: Emergency Provider Emergency Medicine; PCP Family Medicine
DX: M25.551 Pain in right hip (principal)
CPT/HCPCS: 81003; 81015; 87086; 99282; 99283

== ENCOUNTER → 2019-02-08 09:13 | Outpatient (CLI) | payer MEDICARE, OTHER, SELFPAY ==
--- NOTE | 2019-02-08 | DI.MG.S_ITS ---
BILATERAL DIGITAL SCREENING MAMMOGRAM 3D/2D WITH CAD: 02/08/2019 CLINICAL: Routine screening. Family history of breast cancer. Comparison is made to exams dated: 01/25/2018 mammogram, 10/16/2016 mammogram, and 09/25/2015 mammogram - [facility]. There are scattered fibroglandular elements in both breasts. Current study was also evaluated with a Computer Aided Detection (CAD) system. No significant masses, calcifications, or other findings are seen in either breast. There has been no significant interval change. IMPRESSION: NEGATIVE There is no mammographic evidence of malignancy. A 1 year screening mammogram is recommended. This exam was interpreted at Station ID: [id number]. NOTE: For mammograms, a report in lay terms will be sent to the patient. Approximately 15% of breast malignancies will not be visualized mammographically. In the management of a palpable breast mass, a negative mammogram must not discourage biopsy of a clinically suspicious lesion. Electronically Signed By: Jefe wesley/dae:02/08/2019 09:57:58 letter sent: Normal Exam ACR BI-RADS Category 1: Negative 3341F
== END ==
PROVIDERS: PCP Family Medicine; Visit Provider Family Medicine
DX: Z12.31 Encounter for screening mammogram for malignant neoplasm of breast (principal); Z80.3 Family history of malignant neoplasm of breast
CPT/HCPCS: 77063; 77067

== ENCOUNTER → 2019-05-16 12:13 | Outpatient (CLI) | payer MEDICARE, OTHER, SELFPAY ==
[2019-05-16 13:07] LABS: Add Manual Diff / Slide Review NO; Basophils Absolute Auto 0 /uL (0-100); Basophils Percent Auto 0.5 % (0-2); Eosinophils Absolute Auto 100 /uL (0-450); Eosinophils Percent Auto 1.4 % (2-4); Hematocrit 40.6 % (36-46); Hemoglobin 13.5 g/dL (12.0-16.0); Lymphocytes Absolute Auto 2500 /uL (1100-4500); Lymphocytes Percent Auto 42.5 % (25-40); Mean Corpuscular HGB Conc 33.4 % (30-36); Mean Corpuscular Hemoglobin 31.4 PG (26-34); Mean Corpuscular Volume 93.9 fL (80-100); Monocytes Absolute Auto 400 /uL (0-900); Monocytes Percent Auto 6.8 % (3-14); Neutrophils Absolute Auto 2900 /uL (1500-7000); Neutrophils Percent Auto 48.8 % (50-75); Platelet Count 234 X10^3/uL (150-400); Red Blood Cell Count 4.32 X10^6/uL (4.0-5.2); Red Cell Distribution Width 13.4 % (11.6-14.8); White Blood Cell Count 5.9 X10^3/uL (4.5-11.0)
[2019-05-16 13:18] LABS: Alanine Aminotransferase 30 IU/L (9-52); Albumin 4.1 g/dL (3.5-5.0); Albumin Globulin Ratio 1.1 (1.0-2.8); Alkaline Phosphatase 130 U/L (38-126); Aspartate Aminotransferase 38 IU/L (14-36); Bilirubin Total 0.5 mg/dL (0.2-1.3); Blood Urea Nitrogen 20 mg/dL (7-17); Calcium 9.4 mg/dL (8.4-10.2); Carbon Dioxide 30 mmol/L (22-32); Chloride 102 mmol/L (98-107); Estimated Glomerular Filt Rate 54.2 mL/min (>60); Globulin 3.9 g/dL (1.7-4.1); Glucose 110 mg/dL (80-110); HEMOLYSIS 15 (0-50); Potassium 3.2 mmol/L (3.4-5.1); Sodium 142 mmol/L (137-145)
[2019-05-16 14:36] LABS: TSH w/ Reflex to FT4 1.54 uIU/mL (0.47-4.68)
== END ==
PROVIDERS: PCP Family Medicine; Visit Provider Family Medicine
DX: I10 Essential (primary) hypertension (principal); N17.9 Acute kidney failure, unspecified
CPT/HCPCS: 36415; 80053; 84443; 85025

== ENCOUNTER → 2019-08-29 12:29 | Outpatient (CLI) | payer MEDICARE, OTHER, SELFPAY ==
[2019-08-29 13:15] LABS: Add Manual Diff / Slide Review NO; Basophils Absolute Auto 100 /uL (0-100); Basophils Percent Auto 0.9 % (0-2); Eosinophils Absolute Auto 100 /uL (0-450); Eosinophils Percent Auto 1.4 % (2-4); Hematocrit 42.9 % (36-46); Hemoglobin 14.2 g/dL (12.0-16.0); Lymphocytes Absolute Auto 2600 /uL (1100-4500); Lymphocytes Percent Auto 42.1 % (25-40); Mean Corpuscular HGB Conc 33.1 % (30-36); Mean Corpuscular Hemoglobin 31.3 PG (26-34); Mean Corpuscular Volume 94.5 fL (80-100); Monocytes Absolute Auto 500 /uL (0-900); Monocytes Percent Auto 8.9 % (3-14); Neutrophils Absolute Auto 2900 /uL (1500-7000); Neutrophils Percent Auto 46.7 % (50-75); Platelet Count 218 X10^3/uL (150-400); Red Blood Cell Count 4.54 X10^6/uL (4.0-5.2); Red Cell Distribution Width 14.8 % (11.6-14.8); White Blood Cell Count 6.1 X10^3/uL (4.5-11.0)
[2019-08-29 13:46] LABS: Alanine Aminotransferase 25 IU/L (9-52); Albumin 4.5 g/dL (3.5-5.0); Albumin Globulin Ratio 1.3 (1.0-2.8); Alkaline Phosphatase 113 U/L (38-126); Aspartate Aminotransferase 34 IU/L (14-36); Bilirubin Total 0.6 mg/dL (0.2-1.3); Blood Urea Nitrogen 23 mg/dL (7-17); Calcium 9.8 mg/dL (8.4-10.2); Carbon Dioxide 29 mmol/L (22-32); Chloride 99 mmol/L (98-107); Estimated Glomerular Filt Rate 54.2 mL/min (>60); Globulin 3.4 g/dL (1.7-4.1); Glucose 91 mg/dL (80-110); HEMOLYSIS < 15 (0-50); Potassium 3.9 mmol/L (3.4-5.1); Sodium 141 mmol/L (137-145); Total Protein 7.9 g/dL (6.3-8.2)
[2019-08-29 14:10] LABS: TSH w/ Reflex to FT4 1.32 uIU/mL (0.47-4.68)
== END ==
PROVIDERS: PCP Family Medicine; Visit Provider Family Medicine
DX: I10 Essential (primary) hypertension (principal)
CPT/HCPCS: 36415; 80053; 84443; 85025

== ENCOUNTER → 2019-10-16 12:58 | Outpatient (CLI) | payer MEDICARE, OTHER, SELFPAY ==
[2019-10-16 13:26] LABS: Add Manual Diff / Slide Review NO; Basophils Absolute Auto 100 /uL (0-100); Basophils Percent Auto 1.1 % (0-2); Eosinophils Absolute Auto 100 /uL (0-450); Eosinophils Percent Auto 1.7 % (2-4); Hematocrit 42.5 % (36-46); Hemoglobin 14.2 g/dL (12.0-16.0); Lymphocytes Absolute Auto 2900 /uL (1100-4500); Lymphocytes Percent Auto 50.6 % (25-40); Mean Corpuscular HGB Conc 33.4 % (30-36); Mean Corpuscular Hemoglobin 31.7 PG (26-34); Mean Corpuscular Volume 95.1 fL (80-100); Monocytes Absolute Auto 500 /uL (0-900); Monocytes Percent Auto 9.4 % (3-14); Neutrophils Absolute Auto 2100 /uL (1500-7000); Neutrophils Percent Auto 37.2 % (50-75); Platelet Count 209 X10^3/uL (150-400); Red Blood Cell Count 4.47 X10^6/uL (4.0-5.2); Red Cell Distribution Width 14.2 % (11.6-14.8); White Blood Cell Count 5.7 X10^3/uL (4.5-11.0)
[2019-10-16 14:21] LABS: Alanine Aminotransferase 22 IU/L (<35); Albumin 4.4 g/dL (3.5-5.0); Albumin Globulin Ratio 1.3 (1.0-2.8); Alkaline Phosphatase 136 U/L (38-126); Aspartate Aminotransferase 33 IU/L (14-36); Blood Urea Nitrogen 21 mg/dL (7-17); Calcium 9.9 mg/dL (8.4-10.2); Carbon Dioxide 31 mmol/L (22-32); Chloride 100 mmol/L (98-107); Estimated Glomerular Filt Rate 54.2 mL/min (>60); Globulin 3.4 g/dL (1.7-4.1); Glucose 87 mg/dL (80-110); HEMOLYSIS < 15 (0-50); Potassium 3.9 mmol/L (3.4-5.1); Sodium 141 mmol/L (137-145); Total Protein 7.8 g/dL (6.3-8.2)
[2019-10-16 14:48] LABS: TSH w/ Reflex to FT4 1.78 uIU/mL (0.47-4.68)
== END ==
PROVIDERS: PCP Family Medicine; Visit Provider Family Medicine
DX: I10 Essential (primary) hypertension (principal); N17.9 Acute kidney failure, unspecified
CPT/HCPCS: 36415; 80053; 84443; 85025

== ENCOUNTER 2019-10-29 08:57 | Emergency (ER) | payer MEDICARE, OTHER, SELFPAY ==
[2019-10-29 09:05] VITALS: BP 113/77; PULSE 96; RESP 16; TEMP 36.9; O2SAT 96; BMI 32.3
--- NOTE | 2019-10-29 09:08 | ED.ABDPAIN ---
HPI - Abdominal Pain General Chief Complaint: Abdominal Pain Stated Complaint: ABDOMINAL PAIN 3X DAYS Time Seen by Provider: 10/29/19 09:05 Source: patient and family Mode of arrival: Ambulatory Limitations: no limitations History of Present Illness HPI narrative: 74-year-old female nonsmoker with history of pancreatic cancer status post surgical intervention and no ongoing chemotherapy or radiation presents with her in the chief complaint of decreased appetite, generalized abdominal pain and decreased bowel movements over the past few days. She states her pain is worse when she moves and improves with rest. She states it's rather constant with episodes of increased pain that seemed to be unprovoked. She denies radiation of her pain. She denies any fever or chills nor nausea or vomiting. She has had no urinary complaints such as dysuria, frequency or urgency MD complaint: abdominal pain Onset (ago): day(s) Pain Consistency: intermittent Location: diffuse Severity: moderate Quality: cramping Radiation: none Relieving factors: rest Exacerbating factors: movement Associated symptoms: constipation Related Data Home Medications Medication Instructions Recorded Confirmed cholecalciferol (vitamin D3) 5,000 5,000 unit PO DAILY 05/20/18 08/31/19 unit capsule flaxseed oil 1,000 mg capsule 1,000 mg PO DAILY 05/20/18 08/31/19 polyethylene glycol 3350 17 g PO PRN PRN 11/16/18 08/31/19 Previous Rx's Medication Instructions Recorded docusate sodium [Colace] 100 mg PO DAILY PRN #14 cap 11/16/18 apixaban 5 mg tablet 5 mg PO BID #180 tab 06/27/19 omeprazole 20 mg capsule,delayed 20 mg PO DAILY #90 cap 06/27/19 release oxybutynin chloride 15 mg 15 mg PO DAILY #90 tab 06/27/19 tablet,extended release 24 hr hydrochlorothiazide 25 mg tablet 25 mg PO DAILY #90 tab 06/28/19 metoprolol succinate 25 mg 25 mg PO DAILY #90 tab 09/27/19 tablet,extended release 24 hr potassium chloride 20 mEq 20 meq PO DAILY #90 tab 09/27/19 tablet,extended release(part/cryst) cephalexin [Keflex] 500 mg PO QID 7 Days #28 cap 10/29/19 Allergies Allergy/AdvReac Type Severity Reaction Status Date / Time oxycodone Allergy Mild DIZZY Verified 08/31/19 09:53 Review of Systems Constitutional Constitutional: Denies chills, Denies fatigue, Denies fever(s), Denies frequent falls, Denies lethargy and Denies weakness Eyes Eyes: Denies change in vision, Denies eye discharge, Denies irritation and Denies loss of vision ENT Ears, Nose, Mouth, and Throat: Denies change in voice, Denies dizziness, Denies neck pain, Denies sore throat and Denies throat swelling Cardiovascular Cardiovascular: Denies chest pain, Denies irregular heart rhythm, Denies lightheadedness, Denies palpitations, Denies dyspnea, Denies dyspnea on exertion and Denies orthopnea Respiratory Respiratory: Denies cough, Denies dyspnea, Denies dyspnea on exertion and Denies wheezing Gastrointestinal Gastrointestinal: Reports abdominal pain, Reports change in bowel habits, Reports constipation, Denies diarrhea, Reports nausea and Denies vomiting Genitourinary Genitourinary: Denies hematuria, Denies flank pain, Denies urinary incontinence and Denies urinary urgency Musculoskeletal Musculoskeletal: Denies back pain, Denies muscle weakness, Denies neck pain, Denies numbness and Denies tingling Integumentary/Breasts Skin/Breast: Denies pruritus, Denies erythema, Denies rash and Denies wounds Neurologic Neurologic: Denies behavioral changes, Denies confusion, Denies dizziness, Denies frequent falls, Denies loss of vision, Denies numbness, Denies tingling and Denies weakness Psychiatric Psychiatric: Denies anxiety, Denies behavioral changes, Denies confusion, Denies depression, Denies homicidal ideation and Denies suicidal ideation Endocrine Endocrine: Denies fatigue, Denies flushing and Denies palpitations Hematologic/Lymphatic Hematologic/Lymphatic: Denies easy bruising Allergic/Immunologic Allergic/Immunologic: Denies urticaria, Denies throat swelling and Denies wheezing Patient History Social History marital status: Smoking Status: Never smoker alcohol intake: never substance use type: does not use Smoking Status: Never smoker alcohol intake frequency: 0-2 drinks per day Substance Use Type: does not use Exam Narrative Exam Narrative: GENERAL: [74] year old patient appears stated age. Well-nourished, well-developed patient, in mild distress. HEAD: Atraumatic. Normocephalic. EYES: Pupils equal round and reactive. Extraocular motions intact. No scleral icterus. No injection or drainage. ENT: Nose without bleeding, purulent drainage. Throat without erythema, tonsillar hypertrophy or exudate. Airway patent. NECK: Trachea midline. Non tender CARDIOVASCULAR: Regular rate and rhythm without murmurs, gallops, or rubs. RESPIRATORY: Clear to auscultation. Breath sounds equal bilaterally. No wheezes, rales, or rhonchi. GASTROINTESTINAL: Abdomen soft, non-tender, nondistended. Decreased bowel sounds EXTREMITIES: No edema or joint tenderness. BACK: Nontender without deformity or crepitance. No flank tenderness. NEURO: AOx3. SKIN: No rash or erythema of visible areas Initial Vital Signs Initial Vital Signs: Vital Signs Temperature 98.4 F 10/29/19 09:05 Pulse Rate 96 H 10/29/19 09:05 Respiratory Rate 16 10/29/19 09:05 Blood Pressure 113/77 10/29/19 09:05 Pulse Oximetry 96 10/29/19 09:05 Course Orders Ordered: ED Orders 10/29/19 09:16 XR acute abdomen series Stat 10/29/19 09:24 Complete Blood Count AUTO DIFF Stat Comprehensive Metabolic Panel Stat Lipase Stat 10/29/19 10:01 CT abdomen pelvis w con Stat 10/29/19 10:02 US abdomen limited Stat 10/29/19 11:09 Urine Culture Stat Urine Microscopic Stat Discontinued Medications Sodium Chloride (Normal Saline 0.9%) 1,000 mls @ 150 mls/hr IV CONT FLAVIA Last Infusion: 10/29/19 12:18 Dose: 0 mls/hr Documented by: Admin: 10/29/19 09:51 Dose: 150 mls/hr Documented by: DIMITRI Potassium Chloride (Potassium Chloride) 40 meq PO NOW ONE Stop: 10/29/19 10:21 Last Admin: 10/29/19 10:33 Dose: 40 meq Documented by: DIMITRI Vital Signs Vital signs: Vital Signs - 8 hr 10/29/19 09:05 10/29/19 09:55 10/29/19 11:03 Temperature 98.4 F Pulse Rate 96 H 79 73 Respiratory Rate 16 15 21 Blood Pressure 113/77 Blood Pressure [Right Arm] 114/67 127/67 Pulse Oximetry 96 97 98 10/29/19 12:19 Temperature Pulse Rate 73 Respiratory Rate 20 Blood Pressure 120/65 Blood Pressure [Right Arm] Pulse Oximetry 98 MDM - Abdominal Pain Lab Data Result diagrams: 10/29/19 09:24 10/29/19 09:24 Labs: Lab Results 10/29/19 10/29/19 10/29/19 Range/Units 09:24 09:24 11:09 WBC 11.5 H (4.5-11.0) X10^3/uL RBC 4.47 (4.0-5.2) X10^6/uL Hgb 14.2 (12.0-16.0) g/dL Hct 41.7 (36-46) % MCV 93.2 (80-100) fL MCH 31.8 (26-34) PG MCHC 34.1 (30-36) % RDW 13.9 (11.6-14.8) % Plt Count 225 (150-400) X10^3/uL Neut % (Auto) 72.9 (50-75) % Lymph % (Auto) 18.0 L (25-40) % [place] % (Auto) 6.9 (3-14) % Eos % (Auto) 1.6 L (2-4) % Baso % (Auto) 0.6 (0-2) % Neut # (Auto) 8400 H (4942-1432) /uL Lymph # (Auto) 2100 (8327-4361) /uL [place] # (Auto) 800 (0-900) /uL Eos # (Auto) 200 (0-450) /uL Baso # (Auto) 100 (0-100) /uL Sodium 135 L (137-145) mmol/L Potassium 2.9 L (3.4-5.1) mmol/L Chloride 96 L (98-107) mmol/L Carbon Dioxide 28 (22-32) mmol/L BUN 16 (7-17) mg/dL Creatinine 0.90 (0.52-1.04) mg/dL Estimated GFR > 60.0 (>60) mL/min BUN/Creatinine Ratio 17.8 (6-22) Glucose 130 H (80-110) mg/dL Calcium 9.1 (8.4-10.2) mg/dL Total Bilirubin 1.4 H (0.2-1.3) mg/dL AST 52 H (14-36) IU/L ALT 35 H (<35) IU/L Alkaline Phosphatase 116 (38-126) U/L Total Protein 7.7 (6.3-8.2) g/dL Albumin 4.1 (3.5-5.0) g/dL Globulin 3.6 (1.7-4.1) g/dL Albumin/Globulin Ratio 1.1 (1.0-2.8) Lipase 171 (23-300) U/L Urine RBC 1-5/hpf D (0-5/HPF) Urine WBC 10-30/hpf H (0-5/HPF) Ur Squamous Epith Cells 0-1 /hpf (0-5/HPF) Urine Bacteria Many (>30) H (None) Ur Culture Indicated? Specimen cultured Point of care testing: Urine Dip Bedside Urine Glucose Negative Bedside Urine Bilirubin - Negative Bedside Urine Ketone - Negative Urine Specific [place] 1.010 Bedside Urine Occult Blood + Bedside Urine pH 6.5 Bedside Urine Protein +/- 15 Bedside Urine Urobilinogen +/- 1mg Bedside Urine Nitrite - Negative Bedside Urine Leukocytes + 70 Esterase Imaging Data Abdominal x-ray: Radiologist's impression: [facility] DATE TYPE STATUS AUTHOR Hx 10/29/19 10:02 10/29/19 10:01 David Cabrales 10/29/19 09:16 David Cabrales 02/08/19 00:00 Jefe Saba 10/21/18 12:40 Paliwal,Vidhu 10/20/18 09:11 Paliwal,Vidhu 09/09/18 12:35 Jan,Jennirigu 08/27/18 22:17 Missael Claire 08/27/18 21:26 Tiki Calix Catherine L 74, F0 1945 [facility], [facility] R04 167.64cm 90.718kg BMI: 32.3kg/m? Abdominal Pain Search Chart No Data to Display DIZZY ONSET 07/23/11 06/12/16 Today 09:55 Aidee Simons F [address] [address] XRay Report Signed Patient: Aidee Simons LMR#: [id number] : 5Acct:[id number] Age/Sex: 74 / FDate of Service: 10/29/19 Loc: ED Accession Number: [id number] Procedure: XR acute abdomen series Ordering Provider: Hilario Mcdonald D.O. PROCEDURE: XR ACUTE ABDOMEN SERIES INDICATIONS: Abdominal pain TECHNIQUE: One view chest and two views of the abdomen were acquired. COMPARISON: [facility], CT, CT ABDOMEN PELVIS W CON, 08/27/2018, 22:14. [facility], CR, XR CHEST 1V, 08/27/2018, 21:30. FINDINGS: Surgical changes and devices: None. Chest: There is a large hiatal hernia redemonstrated. Associated linear left basilar opacities likely represent atelectasis. There is also mild linear atelectasis in the right lung base. Heart size is normal. Slight blunting of the costophrenic angles are again demonstrated suggestive of pleural thickening. No pneumoperitoneum. Abdomen: Bowel gas pattern is within normal limits. No suspicious calcifications. Bones: No suspicious bony lesions. IMPRESSION: 1. No acute intra-abdominal radiographic abnormality. 2. Large hiatal hernia redemonstrated with probable atelectasis in the lung bases. Dictated by: David Cabrales M.D. on 10/29/2019 at 8:57 Approved by: David Cabrales M.D. on 10/29/2019 at 8:59 CT scan - abdomen: Radiologist's impression: [place] [address] CT Scan Report Signed Patient: Aidee Simons R#: [id number] : 5Acct:[id number] Age/Sex: 74 / FDate of Service: 10/29/19 Loc: ED Accession Number: [id number] Procedure: CT abdomen pelvis w con Ordering Provider: Hilario Mcdonald D.O. PROCEDURE: CT ABDOMEN PELVIS W CON INDICATIONS: severe abdominal pain, hx pancreatic CA TECHNIQUE: After the administration of intravenous contrast, 5 mm thick sections acquired from the diaphragm to the symphysis. 5 mm coronal and sagittal reformats were acquired. For radiation dose reduction, the following was used: automated exposure control, adjustment of mA and/or kV according to patient size. COMPARISON: [facility], CT, CT ABDOMEN PELVIS W CON, 08/27/2018, 22:14. FINDINGS: Image quality: Excellent. ABDOMEN: Lung bases: There is mild atelectasis and scarring in the lung bases. There is a large hiatal hernia redemonstrated. Heart size is enlarged with a small pericardial effusion, slightly increased from the prior study. Solid organs: There are a few small indistinct hypodensities redemonstrated within the inferior right hepatic lobe, similar in appearance to the prior study. The findings are too small to characterize but likely represent cysts. Gallbladder appears within normal limits without calcified gallstones. No biliary ductal dilatation. The spleen is normal in size. No adrenal nodules. Kidneys demonstrate no hydronephrosis. There are postsurgical changes consistent with interval distal pancreatectomy with resection of the previously described mass in the pancreatic tail. There is peripancreatic fat stranding compatible with acute pancreatitis. No pancreatic duct dilatation. No discrete fluid collections. There is heterogeneous fatty infiltration within the pancreas most prominent in the uncinate process. Peritoneum and bowel: Bowel loops demonstrate normal wall thickness and caliber. No evidence of appendicitis. There is a small amount of free fluid in the pelvis. No free air. Nodes and vessels: No retroperitoneal or mesenteric adenopathy by size criteria. Aorta and inferior vena cava are normal in size. Miscellaneous: There is a midline ventral abdominal hernia which represent an incisional hernia. There is a short segment of herniated small bowel without associated bowel obstruction or evidence of strangulation. PELVIS: Genitourinary: The urinary bladder is partially distended. No bladder wall thickening but there is mild pericystic fat stranding. There is a small focus of intraluminal gas within the bladder. Miscellaneous: No inguinal hernias or adenopathy. Bones: No suspicious bony lesions. There is multilevel moderate degenerative disc disease throughout the lumbar spine. There is grade one anterolisthesis at L5-S1 redemonstrated. Mild multilevel retrolisthesis also demonstrated throughout the lumbar spine. There is moderate facet arthropathy in the lower lumbar spine. No vertebral body compression fractures. IMPRESSION: 1. Postsurgical changes consistent with interval distal pancreatectomy with peripancreatic fat stranding compatible with acute pancreatitis. No peripancreatic fluid collections or discrete pancreatic mass identified. No pancreatic duct dilatation. 2. Small amount of free fluid in the pelvis is likely reactive. 3. Small focus of intraluminal gas in the bladder may be related to recent catheterization versus infection from a gas-forming organism. Recommend correlation with clinical history. 4. Small ventral abdominal hernia containing a short segment of small bowel. No associated bowel obstruction or strangulation. 5. Small pericardial effusion, slightly increased from the prior study. 6. Large hiatal hernia redemonstrated with associated bibasilar scarring and atelectasis. Dictated by: David Cabrales M.D. on 10/29/2019 at 9:33 Approved by: David Cabrales M.D. on 10/29/2019 at 9:42 Discharge Plan Departure Patient Disposition: Home Clinical Impression: Acute UTI, Acute hypokalemia Discharge Date/Time: 10/29/19 12:15 Instructions: DI for Abdominal Pain-Adult Activity Restrictions/Additional Instructions: *You have been diagnosed with [urinary tract infection, low potassium, generalized abdominal pain] *What to do: *Take medications as directed: Your prescription has been sent to [facility] in [place] at your request *Follow up with your primary care provider in 2-3 days, call for an appointment. Let them know you were seen in the Emergency Department and that we ask that you be seen in follow up *Return to ER if you should have any new, worsening or concerning symptoms Prescriptions: New cephalexin [Keflex] 500 mg capsule 500 mg PO QID 7 Days Qty: 28 RF: 0 No Action Eliquis 5 mg tablet 5 mg PO BID Qty: 180 RF: 3 oxybutynin chloride 15 mg tablet extended release 24hr 15 mg PO DAILY Qty: 90 RF: 3 omeprazole 20 mg capsule,delayed release(DR/EC) 20 mg PO DAILY Qty: 90 RF: 3 hydrochlorothiazide 25 mg tablet 25 mg PO DAILY Qty: 90 RF: 3 metoprolol succinate 25 mg tablet extended release 24 hr 25 mg PO DAILY Qty: 90 RF: 3 potassium chloride 20 mEq tablet,ER particles/crystals 20 meq PO DAILY Qty: 90 RF: 3 flaxseed oil 1,000 mg capsule 1,000 mg PO DAILY RF: 0 cholecalciferol (vitamin D3) 5,000 unit capsule 5,000 unit PO DAILY RF: 0 polyethylene glycol 3350 17 gram/dose powder 17 g PO PRN PRN (Reason: Constipation) RF: 0 docusate sodium [Colace] 100 mg capsule 100 mg PO DAILY PRN (Reason: constipation) Qty: 14 RF: 0 Referrals: Hogge,Ki, MD [Primary Care Provider] -
--- NOTE | 2019-10-29 09:16 | DI.RAD.S_ITS ---
PROCEDURE: XR ACUTE ABDOMEN SERIES INDICATIONS: Abdominal pain TECHNIQUE: One view chest and two views of the abdomen were acquired. COMPARISON: [facility], CT, CT ABDOMEN PELVIS W CON, 08/27/2018, 22:14. [facility], CR, XR CHEST 1V, 08/27/2018, 21:30. FINDINGS: Surgical changes and devices: None. Chest: There is a large hiatal hernia redemonstrated. Associated linear left basilar opacities likely represent atelectasis. There is also mild linear atelectasis in the right lung base. Heart size is normal. Slight blunting of the costophrenic angles are again demonstrated suggestive of pleural thickening. No pneumoperitoneum. Abdomen: Bowel gas pattern is within normal limits. No suspicious calcifications. Bones: No suspicious bony lesions. IMPRESSION: 1. No acute intra-abdominal radiographic abnormality. 2. Large hiatal hernia redemonstrated with probable atelectasis in the lung bases. Dictated by: David Cabrales M.D. on 10/29/2019 at 8:57 Approved by: David Cabrales M.D. on 10/29/2019 at 8:59
[2019-10-29 09:31] LABS: Add Manual Diff / Slide Review NO; Basophils Absolute Auto 100 /uL (0-100); Basophils Percent Auto 0.6 % (0-2); Eosinophils Absolute Auto 200 /uL (0-450); Eosinophils Percent Auto 1.6 % (2-4); Hematocrit 41.7 % (36-46); Hemoglobin 14.2 g/dL (12.0-16.0); Lymphocytes Absolute Auto 2100 /uL (1100-4500); Mean Corpuscular HGB Conc 34.1 % (30-36); Mean Corpuscular Hemoglobin 31.8 PG (26-34); Mean Corpuscular Volume 93.2 fL (80-100); Monocytes Absolute Auto 800 /uL (0-900); Monocytes Percent Auto 6.9 % (3-14); Neutrophils Absolute Auto 8400 /uL (1500-7000); Neutrophils Percent Auto 72.9 % (50-75); Platelet Count 225 X10^3/uL (150-400); Red Blood Cell Count 4.47 X10^6/uL (4.0-5.2); Red Cell Distribution Width 13.9 % (11.6-14.8); White Blood Cell Count 11.5 X10^3/uL (4.5-11.0)
[2019-10-29] MEDS: SODIUM CHLORIDE 0.9% 1,000 ML 150 ML IV (09:51)
[2019-10-29 09:52] LABS: Alanine Aminotransferase 35 IU/L (<35); Albumin 4.1 g/dL (3.5-5.0); Albumin Globulin Ratio 1.1 (1.0-2.8); Alkaline Phosphatase 116 U/L (38-126); Aspartate Aminotransferase 52 IU/L (14-36); BUN Creatinine Ratio 17.8 (6-22); Bilirubin Total 1.4 mg/dL (0.2-1.3); Blood Urea Nitrogen 16 mg/dL (7-17); Calcium 9.1 mg/dL (8.4-10.2); Carbon Dioxide 28 mmol/L (22-32); Chloride 96 mmol/L (98-107); Estimated Glomerular Filt Rate > 60.0 mL/min (>60); Globulin 3.6 g/dL (1.7-4.1); Glucose 130 mg/dL (80-110); HEMOLYSIS < 15 (0-50); Lipase 171 U/L (23-300); Potassium 2.9 mmol/L (3.4-5.1); Sodium 135 mmol/L (137-145); Total Protein 7.7 g/dL (6.3-8.2)
[2019-10-29 09:55] VITALS: BP 114/67; PULSE 79; RESP 15; O2SAT 97
--- NOTE | 2019-10-29 10:01 | DI.CT.S_ITS ---
PROCEDURE: CT ABDOMEN PELVIS W CON INDICATIONS: severe abdominal pain, hx pancreatic CA TECHNIQUE: After the administration of intravenous contrast, 5 mm thick sections acquired from the diaphragm to the symphysis. 5 mm coronal and sagittal reformats were acquired. For radiation dose reduction, the following was used: automated exposure control, adjustment of mA and/or kV according to patient size. COMPARISON: [facility], CT, CT ABDOMEN PELVIS W CON, 08/27/2018, 22:14. FINDINGS: Image quality: Excellent. ABDOMEN: Lung bases: There is mild atelectasis and scarring in the lung bases. There is a large hiatal hernia redemonstrated. Heart size is enlarged with a small pericardial effusion, slightly increased from the prior study. Solid organs: There are a few small indistinct hypodensities redemonstrated within the inferior right hepatic lobe, similar in appearance to the prior study. The findings are too small to characterize but likely represent cysts. Gallbladder appears within normal limits without calcified gallstones. No biliary ductal dilatation. The spleen is normal in size. No adrenal nodules. Kidneys demonstrate no hydronephrosis. There are postsurgical changes consistent with interval distal pancreatectomy with resection of the previously described mass in the pancreatic tail. There is peripancreatic fat stranding compatible with acute pancreatitis. No pancreatic duct dilatation. No discrete fluid collections. There is heterogeneous fatty infiltration within the pancreas most prominent in the uncinate process. Peritoneum and bowel: Bowel loops demonstrate normal wall thickness and caliber. No evidence of appendicitis. There is a small amount of free fluid in the pelvis. No free air. Nodes and vessels: No retroperitoneal or mesenteric adenopathy by size criteria. Aorta and inferior vena cava are normal in size. Miscellaneous: There is a midline ventral abdominal hernia which represent an incisional hernia. There is a short segment of herniated small bowel without associated bowel obstruction or evidence of strangulation. PELVIS: Genitourinary: The urinary bladder is partially distended. No bladder wall thickening but there is mild pericystic fat stranding. There is a small focus of intraluminal gas within the bladder. Miscellaneous: No inguinal hernias or adenopathy. Bones: No suspicious bony lesions. There is multilevel moderate degenerative disc disease throughout the lumbar spine. There is grade one anterolisthesis at L5-S1 redemonstrated. Mild multilevel retrolisthesis also demonstrated throughout the lumbar spine. There is moderate facet arthropathy in the lower lumbar spine. No vertebral body compression fractures. IMPRESSION: 1. Postsurgical changes consistent with interval distal pancreatectomy with peripancreatic fat stranding compatible with acute pancreatitis. No peripancreatic fluid collections or discrete pancreatic mass identified. No pancreatic duct dilatation. 2. Small amount of free fluid in the pelvis is likely reactive. 3. Small focus of intraluminal gas in the bladder may be related to recent catheterization versus infection from a gas-forming organism. Recommend correlation with clinical history. 4. Small ventral abdominal hernia containing a short segment of small bowel. No associated bowel obstruction or strangulation. 5. Small pericardial effusion, slightly increased from the prior study. 6. Large hiatal hernia redemonstrated with associated bibasilar scarring and atelectasis. Dictated by: David Cabrales M.D. on 10/29/2019 at 9:33 Approved by: David Cabrales M.D. on 10/29/2019 at 9:42
--- NOTE | 2019-10-29 10:02 | DI.US.S_ITS ---
PROCEDURE: US ABDOMEN LIMITED INDICATIONS: SEVERE EPIGASTRIC PAIN, RADIATE TO BACK TECHNIQUE: Real-time focused scanning was performed of the right upper quadrant, with image documentation. COMPARISON: [facility], CT, CT ABDOMEN PELVIS W CON, 10/29/2019, 10:09. FINDINGS: Limited evaluation of the liver demonstrates no focal hepatic lesions. The gallbladder is distended, measuring up to 13.2 cm, without gallstones, gallbladder wall thickening, or pericholecystic fluid. Sonographic Jones's sign was reportedly absent. No intrahepatic biliary ductal dilatation. The visualized common bile duct measures up to 5 mm. The visualized pancreas demonstrates indistinct margins. There is a probable small adrianne hepatis lymph node adjacent to the gallbladder neck measuring up to 0.5 cm. IMPRESSION: 1. No evidence of cholelithiasis or biliary ductal dilatation. 2. Distention of the gallbladder of indeterminate clinical significance. No gallbladder wall thickening, pericholecystic fluid, or other evidence of cholecystitis. If there is clinical suspicion for gallbladder dysfunction, further evaluation may be obtained with a HIDA scan. Dictated by: David Cabrales M.D. on 10/29/2019 at 10:11 Approved by: David Cabrales M.D. on 10/29/2019 at 10:16
[2019-10-29] MEDS: POTASSIUM CHLORIDE 20 MEQ/15 ML UDC 40 MEQ PO (10:33)
[2019-10-29 11:03] VITALS: BP 127/67; PULSE 73; RESP 21; O2SAT 98
[2019-10-29 11:29] LABS: RBC Urine 1-5/HPF (0-5/HPF); WBC Urine 10-30/HPF (0-5/HPF)
[2019-10-29 11:30] LABS: Bacteria Urine Many (>30); Culture Indicated Urine Specimen Cultured; Squamous Epithelial Cell Urine 0-1 /HPF (0-5/HPF)
[2019-10-29 12:19] VITALS: BP 120/65; PULSE 73; RESP 20; O2SAT 98
== END 2019-10-29 12:15 | disposition home or self-care (01) ==
PROVIDERS: Emergency Provider Emergency Medicine; PCP Family Medicine
DX: N39.0 Urinary tract infection, site not specified (principal); E87.6 Hypokalemia; R10.84 Generalized abdominal pain
CPT/HCPCS: 36415; 74022; 74177; 76705; 80053; 81003; 81015; 83690; 85025; 87077; 87086; 87186; 99284; Q9967

== ENCOUNTER 2019-11-13 06:43 | Day surgery (SDC) | payer MEDICARE, OTHER, SELFPAY ==
[2019-11-13 07:15] VITALS: BP 144/97; PULSE 91; RESP 16; TEMP 36.1; O2SAT 94; BMI 33.0
[2019-11-13] MEDS: SODIUM CHLORIDE 0.9% 1,000 ML 200 ML IV (07:20)
--- NOTE | 2019-11-13 07:43 | P.HP_ITS ---
History of Present Illness History of Present Illness Date Patient Seen: 11/13/19 Time Patient Seen: 07:44 Chief complaint: [id number] Narrative: Patient presents for colorectal screening. Later previous colonoscopy 5 years ago that demonstrated an adenomatous polyp. No personal or family history of colon cancer. On further history denies any recent gastrointestinal symptoms. No nausea, vomiting, abdominal pain, loss of appetite, unexplained weight loss, change in bowel habits, diarrhea, constipation, melena, hematochezia, or bright red blood per rectum. Patient History Medical History (Updated 11/13/19 @ 07:43 by Hank Chacon MD) GERD (gastroesophageal reflux disease) (Chronic) History of genitourinary disorders unknown (Chronic) Hypertension (Chronic) Longstanding persistent atrial fibrillation (Acute) New onset a-fib (Chronic) Primary pancreatic neuroendocrine tumor (Chronic) Surgical History (Updated 11/13/19 @ 07:43 by Hank Chacon MD) History of partial hysterectomy (Acute) History of partial pancreatectomy (Chronic) Status post surgery (06/15/11) Family & Social History Social History: household members spouse Tobacco & Substance use: Smoking Status Never smoker alcohol intake never alcohol intake frequency 0-2 drinks per day Substance Use Type does not use Meds Home Medications and Allergies Home Medications Medication Instructions Recorded Confirmed Type flaxseed oil 1,000 mg capsule 1,000 mg PO DAILY 05/20/18 11/13/19 History apixaban 5 mg tablet 5 mg PO BID #180 tab 06/27/19 11/13/19 Rx omeprazole 20 mg capsule,delayed 20 mg PO DAILY #90 cap 06/27/19 11/13/19 Rx release oxybutynin chloride 15 mg 15 mg PO DAILY #90 tab 06/27/19 11/13/19 Rx tablet,extended release 24 hr hydrochlorothiazide 25 mg tablet 25 mg PO DAILY #90 tab 06/28/19 11/13/19 Rx metoprolol succinate 25 mg 25 mg PO DAILY #90 tab 09/27/19 11/13/19 Rx tablet,extended release 24 hr potassium chloride 20 mEq 20 meq PO DAILY #90 tab 09/27/19 11/13/19 Rx tablet,extended release(part/cryst) docusate sodium [Colace] See Rx Instructions .ROUTE 11/13/19 11/13/19 History .COMPLEX PRN Allergies Allergy/AdvReac Type Severity Reaction Status Date / Time oxycodone Allergy Mild DIZZY Verified 08/31/19 09:53 Review of Systems Review of Systems Narrative: A complete review of systems is negative except as noted in the HPI Exam Vital Signs (past 8 hours): - 11/13/19 07:15 Temperature 97 F L Pulse Rate 91 H Respiratory Rate 16 Blood Pressure 144/97 H Pulse Oximetry 94 Oxygen Delivery Method Room Air Narrative Exam Narrative: General-no acute distress, well nourished HEENT-moist mucous membranes, no scleral icterus Neck-supple, no lymphadenopathy Chest- non labored respirations, clear to auscultation bilaterally Cardiac-regular rate no peripheral edema Abdomen-soft, nontender, non distended Extremities-warm, well perfused Neurological-alert and oriented, no focal deficits Assessment & Plan Assessment & Plan narrative: The patient requires colorectal screening and colonoscopy is recommended. Technical details were discussed. Risks, benefits, alternatives explained. Risks including but not limited to myocardial infarc tion, aspiration, bleeding, pain, missed lesion, incomplete examination, need for further radiographic studies, colonic perforation, and need for major abdominal surgery were discussed. All questions were answered to their satisfaction, and they are in agreement with this plan.
[2019-11-13] MEDS: MIDAZOLAM 5 MG/5 ML VIAL IV (08:28)
[2019-11-13] MEDS: fentaNYL 250 MCG/5 ML INJ IV (08:28)
--- NOTE | 2019-11-13 08:28 | PM.OP.ENDO ---
Operative Date/Time/Diagnoses Date of procedure: 11/13/19 Time of procedure: 08:28 Pre-op diagnosis: Screening colonoscopy Post-op diagnosis: same Procedure & Clinicians Study performed: Colonoscopy Same procedure as scheduled: Yes Indications: 74-year-old female history of adenomatous polyp 5 years ago presents for routine screening. Surgeon: Hank Chacon Procedure Notes SCOAP/Timeout: Performed Procedure in detail: Patient placed in left lateral decubitus position. Time out was performed. Procedural sedation was administered with Versed and Fentanyl. A rectal exam demonstrated no external hemorrhoids no internal masses. Colonoscopy scope was placed into the rectum. The sigmoid colon was very tortuous. The scope was stiff in the patient position changed and ultimately required switching to a pediatric scope advanced through the sigmoid colon. Scope was advanced through the colon to the cecum. The ileocecal valve was identified. The scope was then slowly withdrawn examining colon thoroughly in all directions. The colonoscopy was notable for the following 1. Sigmoid diverticulosis 2. Grade 1 internal hemorrhoids 3. Quality of prep moderate Scope withdrawal time: 6 Sedation minutes: 32 Findings: diverticulosis Specimen(s): none sent Complications: none Impression: Diverticulosis Post-procedure Recommendations: Colonscopy in 10 years Disposition: same day surgery
[2019-11-13 08:33] VITALS: BP 117/75; PULSE 84; RESP 18; TEMP 36.7; O2SAT 97
[2019-11-13 08:38] VITALS: BP 109/65; PULSE 77; RESP 17; O2SAT 96
[2019-11-13 08:43] VITALS: BP 115/64; PULSE 86; RESP 19; O2SAT 97
[2019-11-13 08:47] VITALS: BP 126/65; PULSE 72; RESP 17; TEMP 36.3; O2SAT 97
== END 2019-11-13 09:11 | disposition home or self-care (01) ==
PROVIDERS: Family Provider Family Medicine; PCP Family Medicine; Visit Provider Surgery
PROC: 0DJD8ZZ Inspection of Lower Intestinal Tract, Via Natural or Artificial Opening Endoscopic (ICD-10-PCS; CPT 45378; principal; 2019-11-13 07:45)
DX: Z12.11 Encounter for screening for malignant neoplasm of colon (principal); Z86.010 Personal history of colon polyps; I48.0 Paroxysmal atrial fibrillation; I10 Essential (primary) hypertension; K57.30 Diverticulosis of large intestine without perforation or abscess without bleeding; K64.0 First degree hemorrhoids
CPT/HCPCS: G0105; 99152; 99153; J2250; J3010

== ENCOUNTER → 2020-05-14 11:19 | Outpatient (CLI) | payer MEDICARE, OTHER, SELFPAY ==
[2020-05-14 12:45] LABS: Hemoglobin A1C% w Est Avg Glu 5.8 % (4.0-6.0)
[2020-05-14 12:52] LABS: BUN Creatinine Ratio 20.2 (6-22); Blood Urea Nitrogen 19 mg/dL (7-17); Calcium 9.7 mg/dL (8.4-10.2); Carbon Dioxide 30 mmol/L (22-32); Chloride 101 mmol/L (98-107); Estimated Glomerular Filt Rate 58.1 mL/min (>60); Glucose 93 mg/dL (80-110); HEMOLYSIS < 15 (0-50); Potassium 3.5 mmol/L (3.4-5.1); Sodium 139 mmol/L (137-145)
== END ==
PROVIDERS: Family Provider Family Medicine; PCP Family Medicine; Referring Provider Family Medicine; Visit Provider Family Medicine
DX: N17.9 Acute kidney failure, unspecified (principal); R73.9 Hyperglycemia, unspecified; E87.6 Hypokalemia
CPT/HCPCS: 36415; 80048; 83036

== ENCOUNTER → 2020-05-23 09:39 | Outpatient (CLI) | payer MEDICARE, OTHER, SELFPAY ==
--- NOTE | 2020-05-23 09:40 | DI.CT.S_ITS ---
PROCEDURE: CT ABDOMEN W CON INDICATIONS: pancreatic endocrine tumor TECHNIQUE: After the administration of intravenous contrast, 5 mm thick sections acquired from the diaphragm to the iliac crests. 5 mm coronal and sagittal reformats were performed. For radiation dose reduction, the following was used: automated exposure control, adjustment of mA and/or kV according to patient size. COMPARISON: [facility], CT, CT ABDOMEN PELVIS W CON, 08/27/2018, 22:14. [facility], CT, CT ABDOMEN PELVIS W CON, 10/29/2019, 10:09. FINDINGS: Image quality: Excellent. Lung bases: Lung bases are clear. Heart size is normal. A moderately large hiatal hernia is again seen behind the heart. Solid organs: Liver is normal in size and enhancement. Gallbladder appears normal. Biliary system is non dilated. Pancreas has undergone distal pancreatectomy, with a surgical staple line at the pancreatic body just to the left of midline, with resection of the solid hyperenhancing mass that had been present in this area projecting superiorly, reported to represent a neuroendocrine tumor. Spleen is normal in size and enhancement. No adrenal nodules. Kidneys demonstrate normal size and enhancement, without hydronephrosis. Peritoneum and bowel: Bowel loops demonstrate normal wall thickness and caliber. No free fluid or air. Nodes and vessels: No retroperitoneal or mesenteric adenopathy by size criteria. Aorta and inferior vena cava are normal in size. Miscellaneous: No ventral hernias. IMPRESSION: 1. Resolution of recent pancreatitis. Resection of a hyperenhancing superior directed nodule projecting from the pancreatic body margin clinically reported to represent a neuroendocrine tumor. 2. No evidence of adjacent adenopathy or distant metastatic disease. Continued CT surveillance is anticipated. 3. Stable appearance of a large hiatal hernia behind the heart. Dictated by: Logan Martines M.D. on 05/23/2020 at 11:35 Approved by: Logan Martines M.D. on 05/23/2020 at 11:45
== END ==
PROVIDERS: Family Provider Family Medicine; PCP Family Medicine; Referring Provider Family Medicine; Visit Provider Family Medicine
DX: D3A.8 Other benign neuroendocrine tumors (principal); K44.9 Diaphragmatic hernia without obstruction or gangrene; Z90.411 Acquired partial absence of pancreas
CPT/HCPCS: 74160; Q9967

== ENCOUNTER 2020-09-09 20:58 | Inpatient (IN) | payer MEDICARE, OTHER, SELFPAY ==
[2020-09-09] VITALS (12 sets, daily range): BP systolic 123–204; BP diastolic 58–85; PULSE 59–80; RESP 18–23; TEMP 36.4; O2SAT 94–100; BMI 33.3
--- NOTE | 2020-09-09 21:37 | ED.ABDPAIN ---
HPI - Abdominal Pain General Chief Complaint: Abdominal Pain Stated Complaint: N/V/D stomach cramps Time Seen by Provider: 09/09/20 21:29 Source: patient Mode of arrival: Ambulatory Limitations: no limitations History of Present Illness HPI narrative: The patient developed epigastric abdominal pain several hours ago. She has felt chills, she has felt warm. She has had multiple bowel movements, no diarrhea. She has no URI symptoms, sore throat or headache. She has no chest discomfort or dyspnea. Her discomfort is isolated to the upper abdomen. Approximately 2 years ago she underwent surgery are pancreas, there was an apparent benign lesion at the tail of the pancreas. She has stress urinary incontinence. She denies dysuria. She has no back pain. She is more comfortable sitting up and leaning forward than lying back. Onset of symptoms was sudden earlier today, she was previously feeling well. She has been around no one with similar complaints. Related Data Home Medications Medication Instructions Recorded Confirmed flaxseed oil 1,000 mg capsule 1,000 mg PO DAILY 05/20/18 05/14/20 docusate sodium [Colace] See Rx Instructions .ROUTE 11/13/05/14/20 .COMPLEX PRN Previous Rx's Medication Instructions Recorded apixaban 5 mg tablet 5 mg PO BID #180 tab 05/14/20 hydrochlorothiazide 25 mg tablet 25 mg PO DAILY #90 tab 05/14/20 metoprolol succinate 25 mg 25 mg PO DAILY #90 tab 05/14/20 tablet,extended release 24 hr omeprazole 20 mg capsule,delayed 20 mg PO DAILY #90 cap 05/14/20 release oxybutynin chloride 15 mg 15 mg PO DAILY #90 tab 05/14/20 tablet,extended release 24 hr potassium chloride 20 mEq 20 meq PO DAILY #90 tab 05/14/20 tablet,extended release(part/cryst) Allergies Allergy/AdvReac Type Severity Reaction Status Date / Time oxycodone Allergy Mild DIZZY Verified 05/14/20 10:41 Review of Systems Constitutional Constitutional: Reports body ache(s), Reports chills and Reports fever(s) Eyes Comments: No visual changes ENT Ears, Nose, Mouth, and Throat: Denies dizziness Comments: No ENT complaints Cardiovascular Cardiovascular: Denies chest pain, Denies irregular heart rhythm, Denies lightheadedness and Denies dyspnea Respiratory Respiratory: Denies chest congestion, Denies cough and Denies dyspnea Gastrointestinal Gastrointestinal: Reports as per HPI Genitourinary Genitourinary: Denies dysuria and Denies urinary hesitancy Genitourinary: Denies dysuria and Denies urinary hesitancy Comments: DEEJAY as discussed in HPI. Musculoskeletal Musculoskeletal: Denies back pain, Denies myalgias and Denies myalgias Integumentary/Breasts Skin/Breast: Denies erythema, Denies rash and Denies wounds Neurologic Neurologic: Denies confusion and Denies dizziness Psychiatric Psychiatric: Denies confusion, Denies irritability and Denies panic attacks Patient History Medical History GERD (gastroesophageal reflux disease) (Chronic) History of genitourinary disorders unknown (Chronic) Hypertension (Chronic) Longstanding persistent atrial fibrillation (Acute) New onset a-fib (Chronic) Primary pancreatic neuroendocrine tumor (Chronic) Surgical History History of partial hysterectomy (Acute) History of partial pancreatectomy (Chronic) Status post surgery (06/15/11) Family History Father Chronic lung disease Mother Breast cancer Social History marital status: household members: spouse Smoking Status: Never smoker alcohol intake: never substance use type: does not use Smoking Status: Never smoker alcohol intake frequency: 0-2 drinks per day Substance Use Type: does not use Exam Initial Vital Signs Initial Vital Signs: Vital Signs Temperature 97.5 F L 09/09/20 21:08 Pulse Rate 76 09/09/20 21:08 Respiratory Rate 18 09/09/20 21:08 Blood Pressure 155/85 H 09/09/20 21:08 Pulse Oximetry 100 09/09/20 21:08 Const General: cooperative and well developed Nutritional Appearance: well nourished [facility] Head: normocephalic and atraumatic Mouth: oral mucosae normal Throat: posterior oropharynx normal Eyes Conjunctivae: conjunctivae normal EOM: EOM intact bilaterally Neck Neck: No JVD Resp Auscultation: clear to auscultation bilaterally Cardio Rate: regular rate Rhythm: regular rhythm Heart Sounds: S1 normal, S2 normal and no murmurs GI Other: Obese. Epigastric tenderness without distention, guarding or rebound. Normal bowel sounds. No masses. Back/Spine/Pelvis Back: No CVA tenderness Skin General: no rashes or lesions noted and No jaundice Neuro General: patient alert, patient oriented x3, gait normal and no focal motor deficits Speech: speech normal Extrem General: full ROM, no calf tenderness and No pedal edema Psych Mental Status: mental status grossly normal Speech and Movement: speech and movement normal Course Course Course Narrative: The patient is much improved after receiving IV fluids, and morphine for pain. She has hypokalemia, potassium was replaced. CT of the abdomen was consistent with pancreatitis, there were concerns about cholecystitis. An ultrasound confirmed pancreatitis, but revealed no evidence of cholecystitis. She has improved, but still needs admission for ongoing care until the pancreatitis is clearly improved chemically. This case was discussed with her physician, Dr. Islas for admission Orders Ordered: ED Orders 09/09/20 21:21 EKG-12 Lead Stat 09/09/20 21:25 Urine Culture Stat Urine Microscopic Stat 09/09/20 21:47 Complete Blood Count AUTO DIFF Stat Comprehensive Metabolic Panel Stat Lipase Stat Partial Thromboplastin Time Stat Prothrombin Time INR Stat 09/09/20 21:59 CT kidney ureter bladder (KUB) Stat 09/09/20 23:21 US abdomen limited Stat 09/09/20 23:30 COVID19 -ED/INPAT/OR/L&D Stat Sodium Chloride (Normal Saline 0.9%) 1,000 mls @ 250 mls/hr IV CONT FLAVIA Last Infusion: 09/10/20 01:46 Dose: 0 mls/hr Documented by: Admin: 09/09/20 21:43 Dose: 250 mls/hr Documented by: JACQUE Sodium Chloride (Normal Saline 0.9%) 1,000 mls @ 125 mls/hr IV CONT FLAVIA Morphine Sulfate (Morphine) 4 mg IV Q4HR FLAVIA Ondansetron HCl (Zofran) 4 mg IV Q4HR PRN PRN Reason: Nausea And Vomiting Discontinued Medications Potassium Chloride 20 meq/ (Sodium Chloride) 260 mls @ 130 mls/hr IV NOW ONE Stop: 09/10/20 00:09 Last Infusion: 09/10/20 00:56 Dose: 0 mls/hr Documented by: JACQUE Cosigned by: MILDRED Admin: 09/09/20 22:44 Dose: 130 mls/hr Documented by: ANANTH Cosigned by: RONAK Morphine Sulfate (Morphine) 4 mg IV NOW ONE Stop: 09/09/20 21:36 Last Admin: 09/09/20 21:43 Dose: 4 mg Documented by: JACQUE Morphine Sulfate (Morphine) 4 mg IV NOW ONE Stop: 09/09/20 23:35 Last Admin: 09/09/20 23:39 Dose: 4 mg Documented by: JACQUE Ondansetron HCl (Zofran) 4 mg IV NOW ONE Stop: 09/09/20 21:36 Last Admin: 09/09/20 21:43 Dose: 4 mg Documented by: JACQUE Pantoprazole Sodium (Protonix) 40 mg IV NOW ONE Stop: 09/09/20 21:36 Last Admin: 09/09/20 21:43 Dose: 40 mg Documented by: JACQUE Potassium Chloride (Potassium Chloride) 20 meq PO NOW ONE Stop: 09/09/20 22:10 Last Admin: 09/09/20 22:20 Dose: 20 meq Documented by: ALEXANDRE Vital Signs Vital signs: Vital Signs - 8 hr 09/09/20 21:08 09/09/20 21:35 09/09/20 21:56 Temperature 97.5 F L Pulse Rate 76 80 74 Respiratory Rate 18 21 20 Blood Pressure 155/85 H 204/83 H Pulse Oximetry 100 95 09/09/20 22:00 09/09/20 22:01 09/09/20 22:26 Temperature Pulse Rate 62 64 75 Respiratory Rate 21 21 23 Blood Pressure 123/58 L 166/67 H Pulse Oximetry 95 94 99 09/09/20 22:30 09/09/20 22:31 09/09/20 23:00 Temperature Pulse Rate 67 59 L 72 Respiratory Rate 20 19 20 Blood Pressure 166/73 H Pulse Oximetry 98 98 98 09/09/20 23:01 09/09/20 23:30 09/09/20 23:31 Temperature Pulse Rate 67 72 70 Respiratory Rate 20 18 18 Blood Pressure 176/70 H Pulse Oximetry 98 97 97 09/10/20 00:00 09/10/20 00:01 09/10/20 00:28 Temperature Pulse Rate 72 75 81 Respiratory Rate 18 17 23 Blood Pressure 174/78 H Pulse Oximetry 98 09/10/20 00:30 09/10/20 01:00 09/10/20 01:01 Temperature Pulse Rate 73 80 81 Respiratory Rate 21 27 H 21 Blood Pressure 196/79 H 199/83 H Pulse Oximetry 98 97 98 09/10/20 01:30 09/10/20 01:31 Temperature Pulse Rate 72 73 Respiratory Rate 18 17 Blood Pressure 166/74 H Pulse Oximetry 100 100 MDM - Abdominal Pain Lab Data Result diagrams: 09/09/20 21:47 09/09/20 21:47 Labs: Lab Results 09/09/20 09/09/20 09/09/20 Range/Units 21:25 21:47 21:47 WBC 11.0 (4.5-11.0) X10^3/uL RBC 4.86 (4.0-5.2) X10^6/uL Hgb 15.0 (12.0-16.0) g/dL Hct 46.0 (36-46) % MCV 94.5 (80-100) fL MCH 30.8 (26-34) PG MCHC 32.6 (30-36) % RDW 14.0 (11.6-14.8) % Plt Count 201 (150-400) X10^3/uL Neut % (Auto) 84.1 H (50-75) % Lymph % (Auto) 10.0 L (25-40) % Mason % (Auto) 5.4 (3-14) % Eos % (Auto) 0.1 L (2-4) % Baso % (Auto) 0.4 (0-2) % Neut # (Auto) 9300 H (9067-5298) /uL Lymph # (Auto) 1100 (3073-8568) /uL Mason # (Auto) 600 (0-900) /uL Eos # (Auto) 0 (0-450) /uL Baso # (Auto) 0 (0-100) /uL PT 15.5 H (10.1-12.7) SECONDS INR 1.4 H (0.9-1.3) APTT 32 (26.4-36.2) SECONDS Sodium (137-145) mmol/L Potassium (3.4-5.1) mmol/L Chloride (98-107) mmol/L Carbon Dioxide (22-32) mmol/L BUN (7-17) mg/dL Creatinine (0.52-1.04) mg/dL Estimated GFR (>60) mL/min BUN/Creatinine Ratio (6-22) Glucose (80-110) mg/dL Calcium (8.4-10.2) mg/dL Total Bilirubin (0.2-1.3) mg/dL AST (14-36) IU/L ALT (<35) IU/L Alkaline Phosphatase (38-126) U/L Total Protein (6.3-8.2) g/dL Albumin (3.5-5.0) g/dL Globulin (1.7-4.1) g/dL Albumin/Globulin Ratio (1.0-2.8) Lipase (23-300) U/L Urine RBC 10-30/hpf H (0-5/HPF) Urine WBC 1-5/hpf (0-5/HPF) Ur Squamous Epith Cells 0-1 /hpf (0-5/HPF) Urine Bacteria Many (>30) H (None) Ur Culture Indicated? Specimen cultured COVID-19 PCR (Negative) 09/09/20 09/09/20 Range/Units 21:47 23:30 WBC (4.5-11.0) X10^3/uL RBC (4.0-5.2) X10^6/uL Hgb (12.0-16.0) g/dL Hct (36-46) % MCV (80-100) fL MCH (26-34) PG MCHC (30-36) % RDW (11.6-14.8) % Plt Count (150-400) X10^3/uL Neut % (Auto) (50-75) % Lymph % (Auto) (25-40) % Mason % (Auto) (3-14) % Eos % (Auto) (2-4) % Baso % (Auto) (0-2) % Neut # (Auto) (7051-0159) /uL Lymph # (Auto) (9789-3259) /uL Mason # (Auto) (0-900) /uL Eos # (Auto) (0-450) /uL Baso # (Auto) (0-100) /uL PT (10.1-12.7) SECONDS INR (0.9-1.3) APTT (26.4-36.2) SECONDS Sodium 137 (137-145) mmol/L Potassium 2.9 L (3.4-5.1) mmol/L Chloride 100 (98-107) mmol/L Carbon Dioxide 28 (22-32) mmol/L BUN 15 (7-17) mg/dL Creatinine 0.84 (0.52-1.04) mg/dL Estimated GFR > 60.0 (>60) mL/min BUN/Creatinine Ratio 17.9 (6-22) Glucose 157 H (80-110) mg/dL Calcium 9.3 (8.4-10.2) mg/dL Total Bilirubin 1.1 (0.2-1.3) mg/dL AST 105 H (14-36) IU/L ALT 56 H (<35) IU/L Alkaline Phosphatase 160 H (38-126) U/L Total Protein 8.8 H (6.3-8.2) g/dL Albumin 4.4 (3.5-5.0) g/dL Globulin 4.4 H (1.7-4.1) g/dL Albumin/Globulin Ratio 1.0 (1.0-2.8) Lipase 7760 H (23-300) U/L Urine RBC (0-5/HPF) Urine WBC (0-5/HPF) Ur Squamous Epith Cells (0-5/HPF) Urine Bacteria (None) Ur Culture Indicated? COVID-19 PCR Negative (Negative) Point of care testing: Urine Dip Bedside Urine Glucose Negative Bedside Urine Bilirubin - Negative Bedside Urine Ketone +/- 5 Urine Specific [place] 1.015 Bedside Urine Occult Blood ++ Bedside Urine pH 7.0 Bedside Urine Protein + 30 Bedside Urine Urobilinogen - Negative Bedside Urine Nitrite + Positive Bedside Urine Leukocytes - Negative Esterase Imaging Data CT scan - abdomen/pelvis: Radiologist's Impression: Acute pancreatitis. Question cholecystitis. US - abdomen: Radiologist's Impression: Ultrasound confirms pancreatitis. There is no ultrasound evidence of cholecystitis. Critical Care Time Critical Care Time Critical Care Time: Yes Total Critical Care Time: 45 Attestation: Critical care time included the initial patient assessment, review past medical records, review of lab in radiology data. Multiple clinical decisions were made. The patient was informed of the clinical findings, the patient was discussed with admitting physician. Discharge Plan Departure Patient Disposition: Admitted as Observation Clinical Impression: Acute hypokalemia Acute pancreatitis Qualifiers: Pancreatitis type: unspecified pancreatitis type Acute pancreatitis complication: unspecified Qualified Code(s): K85.90 - Acute pancreatitis without necrosis or infection, unspecified Admit Date/Time: 09/10/20 01:35 Admit Provider: iK Islas
[2020-09-09] MEDS: PANTOPRAZOLE 40 MG VIAL IV (21:43)
[2020-09-09] MEDS: SODIUM CHLORIDE 0.9% 1,000 ML 250 ML IV (21:43)
[2020-09-09] MEDS: ONDANSETRON 4 MG/2 ML INJ IV (21:43)
[2020-09-09] MEDS: MORPHINE 4 MG/ML INJ IV ×2 (21:43→23:39)
[2020-09-09 21:53] LABS: Bacteria Urine Many (>30); Culture Indicated Urine Specimen Cultured; RBC Urine 10-30/HPF (0-5/HPF); Squamous Epithelial Cell Urine 0-1 /HPF (0-5/HPF); WBC Urine 1-5/HPF (0-5/HPF)
[2020-09-09 21:56] LABS: Add Manual Diff / Slide Review NO; Basophils Absolute Auto 0 /uL (0-100); Basophils Percent Auto 0.4 % (0-2); Eosinophils Absolute Auto 0 /uL (0-450); Eosinophils Percent Auto 0.1 % (2-4); Lymphocytes Absolute Auto 1100 /uL (1100-4500); Mean Corpuscular HGB Conc 32.6 % (30-36); Mean Corpuscular Hemoglobin 30.8 PG (26-34); Mean Corpuscular Volume 94.5 fL (80-100); Monocytes Absolute Auto 600 /uL (0-900); Monocytes Percent Auto 5.4 % (3-14); Neutrophils Absolute Auto 9300 /uL (1500-7000); Neutrophils Percent Auto 84.1 % (50-75); Platelet Count 201 X10^3/uL (150-400); Red Blood Cell Count 4.86 X10^6/uL (4.0-5.2)
--- NOTE | 2020-09-09 21:59 | DI.CT.S_ITS ---
PROCEDURE: CT KIDNEY URETER BLADDER (KUB) INDICATIONS: Abdominal pain. Hematuria. TECHNIQUE: Noncontrast 5 mm thick sections acquired from the diaphragms to the symphysis. 5 mm thick coronal and sagittal reformats were then performed. For radiation dose reduction, the following was used: automated exposure control, adjustment of mA and/or kV according to patient size. COMPARISON: None. FINDINGS: Image quality: Excellent. Lung bases: Lung bases are clear. Heart size is normal. There is a moderately large hiatal hernia behind the heart. Urinary system: Both kidneys are normal in size. No kidney stones. No hydronephrosis or perinephric fat stranding. Both ureters appear non-dilated throughout their expected courses. Bladder wall thickness is normal; no calcified bladder stones. Other solid organs: Liver is normal in size. Gallbladder shows no calcified stones. Pancreas is abnormal in contours with indistinct margination and retroperitoneal edema consistent with moderately severe acute pancreatitis. Spleen is normal in size. No adrenal nodules. Peritoneum and bowel: Unenhanced bowel loops demonstrate normal wall thickness and caliber. No free fluid or air. Nodes and vessels: No retroperitoneal or mesenteric adenopathy by size criteria. Aorta and inferior vena cava are normal in caliber. Abdominal wall: No ventral hernias superiorly but there is a bowel containing ventral hernia within the subcutaneous fat of the anterior midline of the pelvis. The images do not show evidence of incarceration or strangulation. Pelvis: No free pelvic fluid. No inguinal hernias or adenopathy. A single gas bubble is found within the bladder lumen. Bones: No suspicious bony lesions. No vertebral body compression fractures. IMPRESSION: 1. Acute pancreatitis, moderately severe. 2. Note is made of a single gas bubble within the bladder lumen, of uncertain etiology and clinical significance. No adjacent evidence of diverticulitis is found. Please correlate for recent catheterization or instrumentation. 3. Ventral hernia of bowel loops into the subcutaneous fat of the anterior low midline pelvis showing no sign of incarceration or strangulation. Dictated by: Logan Martines M.D. on 09/10/2020 at 9:01 Approved by: Logan Martines M.D. on 09/10/2020 at 9:04
[2020-09-09 22:01] LABS: INR 1.4 (0.9-1.3); Prothrombin Time 15.5 SECONDS (10.1-12.7)
[2020-09-09 22:04] LABS: Alanine Aminotransferase 56 IU/L (<35); Albumin 4.4 g/dL (3.5-5.0); Alkaline Phosphatase 160 U/L (38-126); Aspartate Aminotransferase 105 IU/L (14-36); BUN Creatinine Ratio 17.9 (6-22); Bilirubin Total 1.1 mg/dL (0.2-1.3); Blood Urea Nitrogen 15 mg/dL (7-17); Calcium 9.3 mg/dL (8.4-10.2); Carbon Dioxide 28 mmol/L (22-32); Chloride 100 mmol/L (98-107); Estimated Glomerular Filt Rate > 60.0 mL/min (>60); Globulin 4.4 g/dL (1.7-4.1); Glucose 157 mg/dL (80-110); HEMOLYSIS 26 (0-50); PTT Partial Thromboplastin Tim 32 SECONDS (26.4-36.2); Potassium 2.9 mmol/L (3.4-5.1); Sodium 137 mmol/L (137-145); Total Protein 8.8 g/dL (6.3-8.2)
[2020-09-09] MEDS: POTASSIUM CHLORIDE 20 MEQ/15 ML UDC PO (22:20)
[2020-09-09 22:26] LABS: Lipase 7760 U/L (23-300)
[2020-09-09] MEDS: POTASSIUM CHLORIDE 20 MEQ in SODIUM CHLORIDE 0.9% 250 ML 130 ML IV (22:44)
--- NOTE | 2020-09-09 23:21 | DI.US.S_ITS ---
PROCEDURE: US ABDOMEN LIMITED INDICATIONS: Pancreatitis. Possible cholecystitis. TECHNIQUE: Real-time focused scanning was performed of the abdomen, with image documentation. COMPARISON: [facility], CT, CT KIDNEY URETER BLADDER (KUB), 09/09/2020, 22:10. [facility], US, US ABDOMEN LIMITED, 10/29/2019, 10:44. FINDINGS: The gallbladder contains no stones and the gallbladder wall is normal in thickness at 1.4 mm. No focal tenderness during sonographic palpation. Note is made of an enlarged pancreas which is increased in echotexture, consistent with pancreatitis. IMPRESSION: No gallstones found. No evidence of cholecystitis. Pancreatitis appears present, and please also refer to the CT scanning 09/09/20 documenting acute pancreatitis. Dictated by: Logan Martines M.D. on 09/10/2020 at 8:14 Approved by: Logan Martines M.D. on 09/10/2020 at 8:18
[2020-09-10] VITALS (15 sets, daily range): BP systolic 123–199; BP diastolic 68–106; PULSE 72–85; RESP 16–27; TEMP 36.3–37.7; O2SAT 95–100; BMI 33.3
[2020-09-10 00:04] LABS: COVID19 -Nasal RAPID Negative (Negative)
[2020-09-10] MEDS: SODIUM CHLORIDE 0.9% 1,000 ML 125 ML IV (02:33)
[2020-09-10] MEDS: MORPHINE 4 MG/ML INJ IV (05:00)
[2020-09-10 05:35] LABS: Add Manual Diff / Slide Review NO; Basophils Absolute Auto 0 /uL (0-100); Basophils Percent Auto 0.1 % (0-2); Eosinophils Absolute Auto 0 /uL (0-450); Eosinophils Percent Auto 0.1 % (2-4); Hematocrit 45.3 % (36-46); Hemoglobin 14.7 g/dL (12.0-16.0); Lymphocytes Absolute Auto 1600 /uL (1100-4500); Lymphocytes Percent Auto 12.5 % (25-40); Mean Corpuscular HGB Conc 32.5 % (30-36); Mean Corpuscular Hemoglobin 30.9 PG (26-34); Mean Corpuscular Volume 95.2 fL (80-100); Monocytes Absolute Auto 500 /uL (0-900); Monocytes Percent Auto 4.2 % (3-14); Neutrophils Absolute Auto 10500 /uL (1500-7000); Neutrophils Percent Auto 83.1 % (50-75); Platelet Count 198 X10^3/uL (150-400); Red Blood Cell Count 4.76 X10^6/uL (4.0-5.2); Red Cell Distribution Width 13.9 % (11.6-14.8); White Blood Cell Count 12.6 X10^3/uL (4.5-11.0)
[2020-09-10 05:44] LABS: Alanine Aminotransferase 46 IU/L (<35); Albumin 4.1 g/dL (3.5-5.0); Albumin Globulin Ratio 1.1 (1.0-2.8); Alkaline Phosphatase 136 U/L (38-126); Aspartate Aminotransferase 64 IU/L (14-36); BUN Creatinine Ratio 18.1 (6-22); Bilirubin Total 1.1 mg/dL (0.2-1.3); Blood Urea Nitrogen 13 mg/dL (7-17); Carbon Dioxide 31 mmol/L (22-32); Chloride 99 mmol/L (98-107); Estimated Glomerular Filt Rate > 60.0 mL/min (>60); Globulin 3.9 g/dL (1.7-4.1); Glucose 148 mg/dL (80-110); HEMOLYSIS < 15 (0-50); Potassium 4.2 mmol/L (3.4-5.1); Sodium 138 mmol/L (137-145)
[2020-09-10 06:15] LABS: Lipase 2448 U/L (23-300)
--- NOTE | 2020-09-10 07:51 | PM.HP.1 ---
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 Patient states she was in her usual state of health attending an appointment with her who was seen the oncologist here at [facility]. After that visit they were headed down to do x-rays she had sudden onset of abdominal pain. She felt very gassy bloated. She felt like she needed to have a bowel movement and then could not go. She began to feel worse. And pain was across her mid abdomen. She went back to the bathroom and had bowel movements which relieved the pain. She was then able to drive home. But later that afternoon she had increasing pain and discomfort. It became come severe of rather quickly. Mid epigastric radiating to the left side. It is a dull achy crampy like pain. Ten and a 10 on the pain scale associated with nausea fear it. Patient felt a little lightheaded. [place] like she had some weakness chills maybe even a little bit of sweating. She felt warm. The pain continued for about 2 hours. At that point she became concerned enough that she drove back to [facility] here at the emergency department. In addition to the pain that she was having. She noticed some changes in the consistency of her urine. She was nauseated. She did not have any chest pain palpitations. She was not short of breath. There mainly all abdominal complaints. She was provided some IV fluids and morphine and she says her pain improved significantly. She had workup in the emergency department including an ultrasound of her abdomen CT scan of her abdomen and blood testing. Blood test results of note showed an elevated amylase AST ALT and alkaline phos which is not normal for her. Inflamed pancreas on CT scan enlarged gallbladder without stones possible cholecystitis on CT scan but not visualized well on the ultrasound. Patient had normal pulse rate and normal blood pressure and oxygenation. Due to the pain and concern for her deterioration of health she was admitted to the hospital. Patient History Medical History GERD (gastroesophageal reflux disease) (Chronic) History of genitourinary disorders unknown (Chronic) Hypertension (Chronic) Longstanding persistent atrial fibrillation (Acute) New onset a-fib (Chronic) Primary pancreatic neuroendocrine tumor (Chronic) Surgical History History of partial hysterectomy (Acute) History of partial pancreatectomy (Chronic) Status post surgery (06/15/11) Family & Social History Family History Father Chronic lung disease Mother Breast cancer Social History: household members spouse Prior Living Arrangements House Safety & Behavioral: Feels Safe in Current Yes Environment Suicidal Ideation Description None Tobacco & Substance use: Smoking Status Never smoker alcohol intake never alcohol intake frequency 0-2 drinks per day Substance Use Type does not use Meds Home Medications and Allergies Home Medications Medication Instructions Recorded Confirmed Type flaxseed oil 1,000 mg capsule 1,000 mg PO DAILY 05/20/18 09/10/20 History apixaban 5 mg tablet 5 mg PO BID #180 tab 05/14/20 09/10/20 Rx hydrochlorothiazide 25 mg tablet 25 mg PO DAILY #90 tab 05/14/20 09/10/20 Rx metoprolol succinate 25 mg 25 mg PO DAILY #90 tab 05/14/20 09/10/20 Rx tablet,extended release 24 hr omeprazole 20 mg capsule,delayed 20 mg PO DAILY #90 cap 05/14/20 09/10/20 Rx release oxybutynin chloride 15 mg 15 mg PO DAILY #90 tab 05/14/20 09/10/20 Rx tablet,extended release 24 hr potassium chloride 20 mEq 20 meq PO DAILY #90 tab 05/14/20 09/10/20 Rx tablet,extended release(part/cryst) aspirin [Adult Low Dose Aspirin] 81 mg PO DAILY 09/10/20 09/10/20 History Allergies Allergy/AdvReac Type Severity Reaction Status Date / Time oxycodone Allergy Mild DIZZY Verified 05/14/20 10:41 Exam Vital Signs (past 8 hours): - 09/10/20 00:00 09/10/20 00:01 09/10/20 00:28 Temperature Pulse Rate 72 75 81 Respiratory Rate 18 17 23 Blood Pressure 174/78 H Pulse Oximetry 98 09/10/20 00:30 09/10/20 01:00 09/10/20 01:01 Temperature Pulse Rate 73 80 81 Respiratory Rate 21 27 H 21 Blood Pressure 196/79 H 199/83 H Pulse Oximetry 98 97 98 09/10/20 01:30 09/10/20 01:31 09/10/20 02:00 Temperature 97.3 F L Pulse Rate 72 73 85 Respiratory Rate 18 17 18 Blood Pressure 166/74 H 157/106 H Pulse Oximetry 100 100 95 09/10/20 04:30 Temperature 97.7 F Pulse Rate 72 Respiratory Rate 18 Blood Pressure 123/71 Pulse Oximetry 97 Oxygen Delivery Method Room Air Oxygen Flow Rate 0 Objective Labs Result Diagrams: 09/10/20 04:50 09/10/20 04:50 Labs: Laboratory Results - last 24 hr 09/09/20 09/09/20 09/09/20 21:25 21:47 21:47 WBC 11.0 RBC 4.86 Hgb 15.0 Hct 46.0 MCV 94.5 MCH 30.8 MCHC 32.6 RDW 14.0 Plt Count 201 Neut % (Auto) 84.1 H Lymph % (Auto) 10.0 L [place] % (Auto) 5.4 Eos % (Auto) 0.1 L Baso % (Auto) 0.4 Neut # (Auto) 9300 H Lymph # (Auto) 1100 [place] # (Auto) 600 Eos # (Auto) 0 Baso # (Auto) 0 PT 15.5 H INR 1.4 H APTT 32 Sodium Potassium Chloride Carbon Dioxide BUN Creatinine Estimated GFR BUN/Creatinine Ratio Glucose Calcium Total Bilirubin AST ALT Alkaline Phosphatase Total Protein Albumin Globulin Albumin/Globulin Ratio Lipase Urine RBC 10-30/hpf H Urine WBC 1-5/hpf Ur Squamous Epith Cells 0-1 /hpf Urine Bacteria Many (>30) H Ur Culture Indicated? Specimen cultured COVID-19 PCR 09/09/20 09/09/20 09/10/20 21:47 23:30 04:50 WBC 12.6 H RBC 4.76 Hgb 14.7 Hct 45.3 MCV 95.2 MCH 30.9 MCHC 32.5 RDW 13.9 Plt Count 198 Neut % (Auto) 83.1 H Lymph % (Auto) 12.5 L [place] % (Auto) 4.2 Eos % (Auto) 0.1 L Baso % (Auto) 0.1 Neut # (Auto) 89297 H Lymph # (Auto) 1600 [place] # (Auto) 500 Eos # (Auto) 0 Baso # (Auto) 0 PT INR APTT Sodium 137 Potassium 2.9 L Chloride 100 Carbon Dioxide 28 BUN 15 Creatinine 0.84 Estimated GFR > 60.0 BUN/Creatinine Ratio 17.9 Glucose 157 H Calcium 9.3 Total Bilirubin 1.1 AST 105 H ALT 56 H Alkaline Phosphatase 160 H Total Protein 8.8 H Albumin 4.4 Globulin 4.4 H Albumin/Globulin Ratio 1.0 Lipase 7760 H Urine RBC Urine WBC Ur Squamous Epith Cells Urine Bacteria Ur Culture Indicated? COVID-19 PCR Negative 09/10/20 04:50 WBC RBC Hgb Hct MCV MCH MCHC RDW Plt Count Neut % (Auto) Lymph % (Auto) [place] % (Auto) Eos % (Auto) Baso % (Auto) Neut # (Auto) Lymph # (Auto) [place] # (Auto) Eos # (Auto) Baso # (Auto) PT INR APTT Sodium 138 Potassium 4.2 D Chloride 99 Carbon Dioxide 31 BUN 13 Creatinine 0.72 Estimated GFR > 60.0 BUN/Creatinine Ratio 18.1 Glucose 148 H Calcium 9.0 Total Bilirubin 1.1 AST 64 H ALT 46 H Alkaline Phosphatase 136 H Total Protein 8.0 Albumin 4.1 Globulin 3.9 Albumin/Globulin Ratio 1.1 Lipase 2448 H D Urine RBC Urine WBC Ur Squamous Epith Cells Urine Bacteria Ur Culture Indicated? COVID-19 PCR Assessment & Plan Assessment & Plan narrative: Acute pancreatitis patient presents to the hospital with acute pancreatitis. Patient has mild elevation of white blood cell count. Abnormal lipase AST ALT and alkaline phosphatase pancreatic inflammation on CT scan and ultrasound and enlarged gallbladder on ultrasound. Patient is not currently on any medications that would cause acute pancreatitis patient does not drink alcohol and last check of her triglycerides were 83. Acute pancreatitis causes most likely gallstone related in all likelihood. At this time it is apparent that patient has had decreasing pain improvement of her lipase as well as improvement of her liver enzymes and pain. She is still not feeling well and having discomfort and not feeling hungry. Will go ahead and start her on a clear liquid diet. Will continue with IV fluids. Will provide pain management with morphine and or oral pain medication is needed. Will have a surgical consultation for evaluation of patient gallbladder is a potential cause. We will continue to monitor closely vital signs. Temperature and ongoing pain. Cholecystitis. CT static scan shows cholecystitis. Although not appreciated on ultrasound. Her gallbladder is enlarged. Do not do is see report of visualized stone or sludge in the gallbladder. She is afebrile she does have a little bit of a white blood cell count I think it may be more with stress response due to pancreatitis. I am holding off on antibiotics at this point as she does not appear to be septic monitor closely temperature and vital signs and be willing to start antibiotics if needed. Will have surgery evaluate patient. Hopefully things will calm down and if needed can have an outpatient procedure on her gallbladder later. Acute hypokalemia. Patient's potassium was quite low on admission to the hospital. Patient received IV potassium. Will continue to monitor passed potassium closely in place on oral potassium. Pancreatic pablo endocrine tumor patient had a partial pancreatectomy about 3 years ago done at [facility]. She had a benign pancreatic tumor in the tail of her pancreas patient had good operative results and has been doing fine since then. Atrial fibrillation patient has chronic atrial fibrillation with heart rate well controlled will start her back on her beta-blanca and anticoagulation today. For prevention of the stroke risk. Slightly that can be stopped if need be later on for surgical procedure but hopefully we can proceed with that outside of the hospital at a later date. Hypertension. Place since blood pressure is well controlled this morning restart her antihypertensive medication. Code status. Patient is a full code. Disposition and plan. Patient will be admitted as inpatient. Due to acute pancreatitis. She will need further evaluation and management possible surgical evaluation and consultation. She is NPO she is receiving IV pain medication and will be in the hospital greater than 2 midnights.
[2020-09-10] MEDS: POTASSIUM CHLORIDE 20 MEQ TAB PO (08:28)
[2020-09-10] MEDS: APIXABAN 5 MG TABLET PO ×2 (08:28→20:40)
[2020-09-10] MEDS: METOPROLOL ER 25 MG TABLET PO (08:28)
--- NOTE | 2020-09-10 10:15 | PC.NURSE ---
Addendum entered by Kristin Redmond R.N. 09/10/20 15:02: pt back at 1502 from MRI. Addendum entered by Kristin Redmond R.N. 09/10/20 14:36: pt to MRI at 1435 via wheelchair, hearing aids removed before transport. Addendum entered by Kristin Redmond R.N. 09/10/20 12:58: Pt had few sips of water, felt nauseated almost to the point of vomiting, requesting anti-emetic. had slight increase in abd discomfort to upper bad during this episode. PRN Zofran given at 1255. Pt holding onto clear liquid tray for now. Original Note: Day Shift- Pt A&OX4, able to make her needs known, pt's Enrique was in rooming overnight, went home for now. Pt NPO, mouth swabs and lip balm given, IVF infusing to left AC PIV. Rates minimal pain, tenderness and pain aching across upper abd. Denies nausea. Pain management plan discussed. Dr. Islas in to see pt around 0735, order changed to decrease IVF, done at 0830 per order. Pt now on clear liquid diet, encouraged pt to intake slowly and pt aware of foods/fluids available in between meals, encouraged small amounts of intake throughout day. Spoke with Dr. Islas's medical student who is performing assessment and history of pt on unit at 0900, who will ask Dr. Islas regarding urine + gram neg bacilli. No other voiced concerns from pt, uses call light appropriately.
--- NOTE | 2020-09-10 10:53 | DI.MRI.S_ITS ---
PROCEDURE: MR ABDOMEN WO CON INDICATIONS: pancreatitis. Eval biliary system and panc ducts TECHNIQUE: Coronal HASTE through the abdomen, axial 2-D FLASH in- and [id number], and breath-hold T2 FSE with fat saturation through the biliary system and pancreas. Oblique coronal and axial thin-slice HASTE, radial thick-slab HASTE centered on the extrahepatic bile ducts. Intravenous secretin: Not requested. COMPARISON: [facility], US, US ABDOMEN LIMITED, 09/09/2020, 23:59. [facility], CT, CT KIDNEY URETER BLADDER (KUB), 09/09/2020, 22:10. FINDINGS: Image quality: Excellent. Pancreas and biliary system: Intra- and extra-hepatic biliary ducts are non dilated. Pancreas is normal in morphology, but demonstrates adjacent soft tissue edema consistent with acute pancreatitis as seen on prior ultrasound and CT scanning. Pancreatic duct is normal in caliber, without developmental anomalies. Gallbladder is not seen to contain gallstones of any size.. Other solid organs: Liver is normal in size. Spleen is normal in size. No adrenal nodules. Both kidneys are normal in size, without hydronephrosis. Nodes and vessels: No retroperitoneal or mesenteric adenopathy by size criteria. Aorta and inferior vena cava are normal in size. Bowel and peritoneum: Unenhanced bowel loops are normal in caliber. No free fluid. Lung bases: No basal pleural effusions. Heart size is normal. Bones and soft tissues: No ventral hernias. Bone marrow is of normal overall signal. IMPRESSION: No common duct stone found, no calculus sequestra within the gallbladder lumen. No biliary distention is seen. There is evidence of acute pancreatitis as indicated by peripancreatic edema in the retroperitoneum. Etiology is uncertain. No pancreatic necrosis found. Dictated by: Logan Martines M.D. on 09/10/2020 at 15:29 Approved by: Logan Martines M.D. on 09/10/2020 at 15:30
--- NOTE | 2020-09-10 10:58 | PM.CN ---
History of Present Illness Consult details Date Patient Seen: 09/10/20 Time Patient Seen: 10:58 Chief complaint: N/V/D stomach cramps Narrative: Aidee iSmons is a 75-year-old woman with a history distal pancreatectomy for neuroendocrine tumor was admitted to the hospital for acute pancreatitis. Two years ago she underwent a laparoscopic distal pancreatectomy at [facility]. She recovered without issue she has never had a history of pancreatitis. Yesterday she had severe upper abdominal pain associated with nausea and hematuria and was evaluated in the emergency room. At admission she was afebrile hemodynamically stable WBC 11, HCT 44, T Bili 1.1, AST 105, ALT 56, Alk Phos 160, lipase 7800. A non contrast CT A/P demonstrates gallbladder without stones, pancreas with surrounding edema consistent with moderate pancreatitis. A RUQ ultrasound demonstrates a normal gallbladder without stones. This AM she is feeling significantly better, tolerating liquids, pain has improved. She does not drink alcohol, has no history of hypercalcemia or hypertriglyceridemia. She is currently anticoagulated with Eliquis for history of atrial fibrillation. Meds Home Medications and Allergies Home Medications Medication Instructions Recorded Confirmed Type flaxseed oil 1,000 mg capsule 1,000 mg PO DAILY 05/20/18 09/10/20 History apixaban 5 mg tablet 5 mg PO BID #180 tab 05/14/20 09/10/20 Rx hydrochlorothiazide 25 mg tablet 25 mg PO DAILY #90 tab 05/14/20 09/10/20 Rx metoprolol succinate 25 mg 25 mg PO DAILY #90 tab 05/14/20 09/10/20 Rx tablet,extended release 24 hr omeprazole 20 mg capsule,delayed 20 mg PO DAILY #90 cap 05/14/20 09/10/20 Rx release oxybutynin chloride 15 mg 15 mg PO DAILY #90 tab 05/14/20 09/10/20 Rx tablet,extended release 24 hr potassium chloride 20 mEq 20 meq PO DAILY #90 tab 05/14/20 09/10/20 Rx tablet,extended release(part/cryst) aspirin [Adult Low Dose Aspirin] 81 mg PO DAILY 09/10/20 09/10/20 History Allergies Allergy/AdvReac Type Severity Reaction Status Date / Time oxycodone Allergy Mild DIZZY Verified 05/14/20 10:41 Review of Systems Review of Systems Narrative: A 10 point review of systems is negative except as noted in the HPI Exam Vital Signs (past 8 hours): - 09/10/20 04:30 09/10/20 07:52 09/10/20 08:28 Temperature 97.7 F 98.2 F Pulse Rate 72 80 80 Respiratory Rate 18 16 Blood Pressure 123/71 132/74 132/74 Pulse Oximetry 97 98 Oxygen Delivery Method Room Air Oxygen Flow Rate 0 Narrative Exam Narrative: General-no acute distress, well nourished elderly woman HEENT-moist mucous membranes, no scleral icterus Neck-supple, no lymphadenopathy Chest- non labored respirations, clear to auscultation bilaterally Cardiac-irregular rate no peripheral edema Abdomen-tender epigastric with palpation no peritonitis no right upper quadrant tenderness Extremities-warm, well perfused Neurological-alert and oriented, no focal deficits Objective Labs Result Diagrams: 09/10/20 04:50 09/10/20 04:50 Labs: Laboratory Results - last 24 hr 09/09/20 09/09/20 09/09/20 21:25 21:47 21:47 WBC 11.0 RBC 4.86 Hgb 15.0 Hct 46.0 MCV 94.5 MCH 30.8 MCHC 32.6 RDW 14.0 Plt Count 201 Neut % (Auto) 84.1 H Lymph % (Auto) 10.0 L [place] % (Auto) 5.4 Eos % (Auto) 0.1 L Baso % (Auto) 0.4 Neut # (Auto) 9300 H Lymph # (Auto) 1100 [place] # (Auto) 600 Eos # (Auto) 0 Baso # (Auto) 0 PT 15.5 H INR 1.4 H APTT 32 Sodium Potassium Chloride Carbon Dioxide BUN Creatinine Estimated GFR BUN/Creatinine Ratio Glucose Hemoglobin A1c Calcium Total Bilirubin AST ALT Alkaline Phosphatase Total Protein Albumin Globulin Albumin/Globulin Ratio Lipase Urine RBC 10-30/hpf H Urine WBC 1-5/hpf Ur Squamous Epith Cells 0-1 /hpf Urine Bacteria Many (>30) H Ur Culture Indicated? Specimen cultured COVID-19 PCR 09/09/20 09/09/20 09/10/20 21:47 23:30 04:50 WBC 12.6 H RBC 4.76 Hgb 14.7 Hct 45.3 MCV 95.2 MCH 30.9 MCHC 32.5 RDW 13.9 Plt Count 198 Neut % (Auto) 83.1 H Lymph % (Auto) 12.5 L [place] % (Auto) 4.2 Eos % (Auto) 0.1 L Baso % (Auto) 0.1 Neut # (Auto) 63114 H Lymph # (Auto) 1600 [place] # (Auto) 500 Eos # (Auto) 0 Baso # (Auto) 0 PT INR APTT Sodium 137 Potassium 2.9 L Chloride 100 Carbon Dioxide 28 BUN 15 Creatinine 0.84 Estimated GFR > 60.0 BUN/Creatinine Ratio 17.9 Glucose 157 H Hemoglobin A1c Calcium 9.3 Total Bilirubin 1.1 AST 105 H ALT 56 H Alkaline Phosphatase 160 H Total Protein 8.8 H Albumin 4.4 Globulin 4.4 H Albumin/Globulin Ratio 1.0 Lipase 7760 H Urine RBC Urine WBC Ur Squamous Epith Cells Urine Bacteria Ur Culture Indicated? COVID-19 PCR Negative 09/10/20 09/10/20 04:50 04:50 WBC RBC Hgb Hct MCV MCH MCHC RDW Plt Count Neut % (Auto) Lymph % (Auto) [place] % (Auto) Eos % (Auto) Baso % (Auto) Neut # (Auto) Lymph # (Auto) [place] # (Auto) Eos # (Auto) Baso # (Auto) PT INR APTT Sodium 138 Potassium 4.2 D Chloride 99 Carbon Dioxide 31 BUN 13 Creatinine 0.72 Estimated GFR > 60.0 BUN/Creatinine Ratio 18.1 Glucose 148 H Hemoglobin A1c 6.0 Calcium 9.0 Total Bilirubin 1.1 AST 64 H ALT 46 H Alkaline Phosphatase 136 H Total Protein 8.0 Albumin 4.1 Globulin 3.9 Albumin/Globulin Ratio 1.1 Lipase 2448 H D Urine RBC Urine WBC Ur Squamous Epith Cells Urine Bacteria Ur Culture Indicated? COVID-19 PCR Assessment & Plan Assessment & Plan narrative: 75-year-old woman history of a distal pancreatectomy for neuroendocrine tumor admitted to the hospital for management of acute mild pancreatitis. Regarding the etiology I reviewed her non contrast CT A/P as well as the RUQ ultrasound and both show a grossly normal gallbladder without stones. It is possible she could have microlithiasis and or sludge within the gallbladder not visualized on the initial imaging or an abnormality of her pancreatic duct system given her prior distal pancreatectomy. A MRCP has been order to better clarify. No plans for surgical intervention at this time.
--- NOTE | 2020-09-10 12:28 | CM.DANOTE ---
Addendum entered by Jacquelin Frankel LPN 09/10/20 12:40: Met now with pt as planned. She is found lying in dark, clear liquid tray at bedside. Says she has a few sips of water and now I feel terrible. Tests are planned for this afternoon. She confirms she is functionally independent without assistive device and that she and her Enrique both drive. Assured pt that DCP team will be following to assist with any d/c needs that may arise. White-board in pt's room is updated with DCPlanner contact informations Original Note: Discharge Planning/Care Management DCP: assessment: case received and discussed in Team Rounds. Pt is a 75 year old female who admitted to care of PCP: Dr. Malik Islas early this morning. Consulting: [facility] Dr. Chacon: ERCP planned. No surgery is being considered at this point per Dr. Chacon. Payer: Medicare and [employer]. Admission status: in review per UR COLLINS Hernandez. P: check in with pt for introduction of self and the dc planning role. DCP team will be following as POC unfolds and needs at d/c are clearer. CM Discharge Assessment Start: 09/10/20 12:27 Freq: Status: Active Protocol: Document 09/10/20 12:27 ITV (Rec: 09/10/20 12:28 ITV [id number]) Discharge Planning Assessment Advance Directives? No History Provided By Medical Record Has Patient been admitted in last 30 No days? Prior Living Arrangements House Household Members spouse Independent with ADL's Yes Is patient alert and oriented? Yes Whiteboard Updated in Patient Room with Yes name and ext. # of Moving Picture Operator
[2020-09-10] MEDS: ONDANSETRON 4 MG/2 ML INJ IV (12:53)
[2020-09-10] MEDS: SODIUM CHLORIDE 0.9% 1,000 ML 75 ML IV (12:54)
[2020-09-10] MEDS: ACETAMINOPHEN 325 MG TABLET 650 MG PO (17:40)
[2020-09-11 00:30] VITALS: BP 146/79; PULSE 85; RESP 18; TEMP 36.9; O2SAT 97
[2020-09-11 03:15] VITALS: BP 147/73; PULSE 85; RESP 17; TEMP 36.7; O2SAT 96
[2020-09-11] MEDS: SODIUM CHLORIDE 0.9% 1,000 ML 75 ML IV (03:29)
[2020-09-11 06:13] LABS: Add Manual Diff / Slide Review NO; Basophils Absolute Auto 0 /uL (0-100); Basophils Percent Auto 0.3 % (0-2); Eosinophils Absolute Auto 100 /uL (0-450); Eosinophils Percent Auto 0.6 % (2-4); Hematocrit 39.9 % (36-46); Hemoglobin 13.2 g/dL (12.0-16.0); Lymphocytes Absolute Auto 2100 /uL (1100-4500); Lymphocytes Percent Auto 19.6 % (25-40); Mean Corpuscular Hemoglobin 31.5 PG (26-34); Mean Corpuscular Volume 95.3 fL (80-100); Monocytes Absolute Auto 800 /uL (0-900); Monocytes Percent Auto 7.3 % (3-14); Neutrophils Absolute Auto 7700 /uL (1500-7000); Neutrophils Percent Auto 72.2 % (50-75); Platelet Count 163 X10^3/uL (150-400); Red Blood Cell Count 4.18 X10^6/uL (4.0-5.2); Red Cell Distribution Width 14.4 % (11.6-14.8); White Blood Cell Count 10.7 X10^3/uL (4.5-11.0)
[2020-09-11 06:30] LABS: Lipase 398 U/L (23-300)
[2020-09-11 06:31] LABS: Alanine Aminotransferase 68 IU/L (<35); Albumin 3.6 g/dL (3.5-5.0); Albumin Globulin Ratio 1.1 (1.0-2.8); Alkaline Phosphatase 111 U/L (38-126); Aspartate Aminotransferase 76 IU/L (14-36); Bilirubin Total 1.9 mg/dL (0.2-1.3); Bilirubin Unconjugated 1.6 mg/dL (0.0-1.1); Globulin 3.4 g/dL (1.7-4.1); HEMOLYSIS 31 (0-50)
[2020-09-11 06:32] LABS: BUN Creatinine Ratio 13.8 (6-22); Blood Urea Nitrogen 12 mg/dL (7-17); Calcium 8.5 mg/dL (8.4-10.2); Carbon Dioxide 33 mmol/L (22-32); Chloride 101 mmol/L (98-107); Estimated Glomerular Filt Rate > 60.0 mL/min (>60); Glucose 103 mg/dL (80-110); HEMOLYSIS 37 (0-50); Potassium 3.7 mmol/L (3.4-5.1); Sodium 136 mmol/L (137-145)
[2020-09-11 07:00] VITALS: BP 148/83; RESP 16; TEMP 37.4; O2SAT 94
--- NOTE | 2020-09-11 07:06 | P.PN_ITS ---
Subjective Subjective Date Patient Seen: 09/11/20 Time Patient Seen: 07:07 Interval history: Feels significantly better this morning than yesterday. Abdominal pain is largely resolved. Exam Vital Signs (past 8 hours): - 09/11/20 00:30 09/11/20 03:15 Temperature 98.5 F 98.1 F Pulse Rate 85 85 Respiratory Rate 18 17 Blood Pressure 146/79 H 147/73 H Pulse Oximetry 97 96 Oxygen Delivery Method Room Air Oxygen Flow Rate 0 Narrative Exam Narrative: General- Elderly woman alert oriented no acute distress Abdomen-minimal epigastric tenderness improved from yesterday Objective Labs Result Diagrams: 09/11/20 05:35 09/11/20 05:35 Labs: Laboratory Results - last 24 hr 09/10/20 09/11/20 09/11/20 04:50 05:35 05:35 WBC 10.7 RBC 4.18 Hgb 13.2 Hct 39.9 MCV 95.3 MCH 31.5 MCHC 33.0 RDW 14.4 Plt Count 163 Neut % (Auto) 72.2 Lymph % (Auto) 19.6 L [place] % (Auto) 7.3 Eos % (Auto) 0.6 L Baso % (Auto) 0.3 Neut # (Auto) 7700 H Lymph # (Auto) 2100 [place] # (Auto) 800 Eos # (Auto) 100 Baso # (Auto) 0 Sodium 136 L Potassium 3.7 Chloride 101 Carbon Dioxide 33 H BUN 12 Creatinine 0.87 Estimated GFR > 60.0 BUN/Creatinine Ratio 13.8 Glucose 103 Hemoglobin A1c 6.0 Calcium 8.5 Total Bilirubin Conjugated Bilirubin Unconjugated Bilirubin AST ALT Alkaline Phosphatase Total Protein Albumin Globulin Albumin/Globulin Ratio Lipase 09/11/20 09/11/20 05:35 05:35 WBC RBC Hgb Hct MCV MCH MCHC RDW Plt Count Neut % (Auto) Lymph % (Auto) [place] % (Auto) Eos % (Auto) Baso % (Auto) Neut # (Auto) Lymph # (Auto) [place] # (Auto) Eos # (Auto) Baso # (Auto) Sodium Potassium Chloride Carbon Dioxide BUN Creatinine Estimated GFR BUN/Creatinine Ratio Glucose Hemoglobin A1c Calcium Total Bilirubin 1.9 H Conjugated Bilirubin 0.0 Unconjugated Bilirubin 1.6 H AST 76 H ALT 68 H Alkaline Phosphatase 111 Total Protein 7.0 Albumin 3.6 Globulin 3.4 Albumin/Globulin Ratio 1.1 Lipase 398 H D Assessment & Plan Assessment & Plan narrative: 75-year-old woman with a history of a distal pancreatectomy here with acute pancreatitis. Pancreatitis is resolving. I reviewed her MRCP from yesterday demonstrates normal pancreatic ductal system and the gallbladder is without evidence of acute cholecystitis there is no evidence of stones, sludge or microlithiasis. Etiology of her pancreatitis remains unclear, however no convincing evidence that she has gallstone pancreatitis. Should her pancreatitis reoccur I think she would benefit from advanced endoscopy, possible endoscopic ultrasound or ERCP.
--- NOTE | 2020-09-11 07:59 | PM.DS.1 ---
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 Patient states she was in her usual state of health attending an appointment with her who was seen the oncologist here at [facility]. After that visit they were headed down to do x-rays she had sudden onset of abdominal pain. She felt very gassy bloated. She felt like she needed to have a bowel movement and then could not go. She began to feel worse. And pain was across her mid abdomen. She went back to the bathroom and had bowel movements which relieved the pain. She was then able to drive home. But later that afternoon she had increasing pain and discomfort. It became come severe of rather quickly. Mid epigastric radiating to the left side. It is a dull achy crampy like pain. Ten and a 10 on the pain scale associated with nausea fear it. Patient felt a little lightheaded. [place] like she had some weakness chills maybe even a little bit of sweating. She felt warm. The pain continued for about 2 hours. At that point she became concerned enough that she drove back to [facility] here at the emergency department. In addition to the pain that she was having. She noticed some changes in the consistency of her urine. She was nauseated. She did not have any chest pain palpitations. She was not short of breath. There mainly all abdominal complaints. She was provided some IV fluids and morphine and she says her pain improved significantly. She had workup in the emergency department including an ultrasound of her abdomen CT scan of her abdomen and blood testing. Blood test results of note showed an elevated amylase AST ALT and alkaline phos which is not normal for her. Inflamed pancreas on CT scan enlarged gallbladder without stones possible cholecystitis on CT scan but not visualized well on the ultrasound. Patient had normal pulse rate and normal blood pressure and oxygenation. Due to the pain and concern for her deterioration of health she was admitted to the hospital. Discharge Providers Provider Date of admission: 09/10/20 01:35 Discharge Date: 09/11/20 Primary care physician: Ki Islas MD Consults: 10/27/20 07:26 Consult to Discharge Planning Routine Comment: Discharge provider: Ki Islas MD Summary Hospital Course Discharge Diagnosis: Acute pancreatitis Acute hypokalemia History of pancreatic new endocrine tumor surgery 2 years ago Atrial fibrillation chronic anticoagulation Hypertension Hospital Course: Patient was admitted to the hospital with acute pancreatitis concerning for acute cholecystitis. Patient was admitted with IV pain medication IV fluid and NPO status. Patient had further workup and evaluation of her pancreatitis with an ultrasound as well as an MRCP. On further evaluation her her gallbladder initially which was concern for acute cholecystitis on CT scan but showed no significant abnormalities on ultrasound as well as MRCP there was no sludge or microcalcifications. Her pancreatitis etiology was unclear at the time of discharge. For the 1st 24 hours she received pain medication IV fluid in which she was NPO. Her pain significantly improved. She was started on clear liquids and her diet was advanced to a soft diet. Patient was tolerating small amounts of fluid and small meals. With minimal to no discomfort in her abdomen. She had mild nausea. She had some still mild abdominal discomfort and tenderness on deep palpation at the time of discharge. During her stay she was provided with the IV and oral potassium due to hypokalemia which was thought due to her underlying blood pressure medication hydrochlorothiazide. This medication was then subsequently stopped at the time of discharge as well as her potassium in her blood pressure medications were adjusted. Discharge instructions were the patient to continue with soft diet for the 1st 7 days. Low-fat. Frequent fluids. She will call or return if continued ongoing pain or discomfort. Exam Vital Signs (past 8 hours): - 09/11/20 00:30 09/11/20 03:15 Temperature 98.5 F 98.1 F Pulse Rate 85 85 Respiratory Rate 18 17 Blood Pressure 146/79 H 147/73 H Pulse Oximetry 97 96 Oxygen Delivery Method Room Air Oxygen Flow Rate 0 Objective Labs Result Diagrams: 09/11/20 05:35 09/11/20 05:35 Labs: Laboratory Results - last 24 hr 09/10/20 09/11/20 09/11/20 04:50 05:35 05:35 WBC 10.7 RBC 4.18 Hgb 13.2 Hct 39.9 MCV 95.3 MCH 31.5 MCHC 33.0 RDW 14.4 Plt Count 163 Neut % (Auto) 72.2 Lymph % (Auto) 19.6 L [place] % (Auto) 7.3 Eos % (Auto) 0.6 L Baso % (Auto) 0.3 Neut # (Auto) 7700 H Lymph # (Auto) 2100 [place] # (Auto) 800 Eos # (Auto) 100 Baso # (Auto) 0 Sodium 136 L Potassium 3.7 Chloride 101 Carbon Dioxide 33 H BUN 12 Creatinine 0.87 Estimated GFR > 60.0 BUN/Creatinine Ratio 13.8 Glucose 103 Hemoglobin A1c 6.0 Calcium 8.5 Total Bilirubin Conjugated Bilirubin Unconjugated Bilirubin AST ALT Alkaline Phosphatase Total Protein Albumin Globulin Albumin/Globulin Ratio Lipase 09/11/20 09/11/20 05:35 05:35 WBC RBC Hgb Hct MCV MCH MCHC RDW Plt Count Neut % (Auto) Lymph % (Auto) [place] % (Auto) Eos % (Auto) Baso % (Auto) Neut # (Auto) Lymph # (Auto) [place] # (Auto) Eos # (Auto) Baso # (Auto) Sodium Potassium Chloride Carbon Dioxide BUN Creatinine Estimated GFR BUN/Creatinine Ratio Glucose Hemoglobin A1c Calcium Total Bilirubin 1.9 H Conjugated Bilirubin 0.0 Unconjugated Bilirubin 1.6 H AST 76 H ALT 68 H Alkaline Phosphatase 111 Total Protein 7.0 Albumin 3.6 Globulin 3.4 Albumin/Globulin Ratio 1.1 Lipase 398 H D Discharge Plan Discharge Plan Patient Disposition: Home Provider Discharge Comment: home small frequent low fat meals until next vist call if return of pain Discharge orders & Medications Prescriptions: New lisinopril 20 mg tablet 20 mg PO DAILY Qty: 90 RF: 3 Continued Eliquis 5 mg tablet 5 mg PO BID Qty: 180 RF: 3 metoprolol succinate 25 mg tablet extended release 24 hr 25 mg PO DAILY Qty: 90 RF: 3 omeprazole 20 mg capsule,delayed release(DR/EC) 20 mg PO DAILY Qty: 90 RF: 3 oxybutynin chloride 15 mg tablet extended release 24hr 15 mg PO DAILY Qty: 90 RF: 3 flaxseed oil 1,000 mg capsule 1,000 mg PO DAILY RF: 0 aspirin [Adult Low Dose Aspirin] 81 mg Tablet,Delayed Release (Dr/Ec) 81 mg PO DAILY RF: 0 Discontinued hydrochlorothiazide 25 mg tablet 25 mg PO DAILY Qty: 90 RF: 3 potassium chloride 20 mEq tablet,ER particles/crystals 20 meq PO DAILY Qty: 90 RF: 3 Follow up/Referrals: Ki Islas MD [Primary Care Provider] - Visit Report/Discharge Packet Instructions: DI for Pancreatitis Visit Report Forms: Patient Portal/API, Stroke Signs & Symptoms Discharge Data Primary Care Provider: Ki Islas
[2020-09-11] MEDS: ACETAMINOPHEN 325 MG TABLET 650 MG PO (08:15)
[2020-09-11] MEDS: APIXABAN 5 MG TABLET PO (08:15)
[2020-09-11] MEDS: METOPROLOL ER 25 MG TABLET PO (08:15)
--- NOTE | 2020-09-11 09:59 | PC.NURSE ---
Assess- Patient is doing well this am. Given tylenol for complaints of headache. This has been helpful. She is moving well by herself in her room, and is cautious. Patients bowel tones +x4, abdomen soft. She will be discharged home today.
[2020-09-11 11:00] VITALS: BP 143/76; PULSE 90; RESP 15; TEMP 37.7; O2SAT 96
== END 2020-09-11 12:00 | disposition home or self-care (01) | DRG 439 ==
LOC: ED 09-10 01:11 → AC 09-10 01:58
PROVIDERS: Admitting Provider Family Medicine; Emergency Provider Emergency Medicine; Family Provider Family Medicine; PCP Family Medicine; Visit Provider Family Medicine
DX: K85.90 Acute pancreatitis without necrosis or infection, unspecified (principal); I48.20 Chronic atrial fibrillation, unspecified; E87.6 Hypokalemia; I10 Essential (primary) hypertension; K21.9 Gastro-esophageal reflux disease without esophagitis
CPT/HCPCS: 36415; 74176; 74181; 76705; 80048; 80053; 80076; 81003; 81015; 83036; 83690; 85025; 85610; 85730; 87077; 87086; 87186; 87635; 93005; 93010; 96361; 96365; 96366; 96375; 96376; 99223; 99231; 99232; 99238; 99285; 99291; C9113; J2270; J2405; J3480

== ENCOUNTER → 2020-11-16 11:24 | Outpatient (CLI) | payer MEDICARE, OTHER, SELFPAY ==
[2020-09-10 02:04] VITALS: BMI 33.3
--- NOTE | 2020-11-16 | DI.MG.S_ITS ---
BILATERAL DIGITAL SCREENING MAMMOGRAM 3D/2D WITH CAD: 11/16/2020 CLINICAL: Routine screening. Family history of breast cancer. Comparison is made to exams dated: 02/08/2019 mammogram, 01/25/2018 mammogram, and 10/16/2016 mammogram - [facility]. There are scattered fibroglandular elements in both breasts. Current study was also evaluated with a Computer Aided Detection (CAD) system. There is a possible 0.6 cm oval equal density asymmetry in the left breast middle depth central to the nipple seen on the craniocaudal view only. This is more prominent. No other significant masses, calcifications, or other findings are seen in either breast. IMPRESSION: INCOMPLETE: NEEDS ADDITIONAL IMAGING EVALUATION The possible 0.6 cm oval equal density asymmetry in the left breast is indeterminate. Additional views with possible ultrasound are recommended. This exam was interpreted at Station ID: [id number]. NOTE: For mammograms, a report in lay terms will be sent to the patient. Approximately 15% of breast malignancies will not be visualized mammographically. In the management of a palpable breast mass, a negative mammogram must not discourage biopsy of a clinically suspicious lesion. Electronically Signed By: Jefe wesley/dae:11/18/2020 08:18:24 letter sent: Additional Imaging Needed ACR BI-RADS Category 0: Incomplete 3340F
== END ==
PROVIDERS: Family Provider Family Medicine; PCP Family Medicine; Referring Provider Family Medicine; Visit Provider Family Medicine
DX: Z12.31 Encounter for screening mammogram for malignant neoplasm of breast (principal); Z80.3 Family history of malignant neoplasm of breast
CPT/HCPCS: 77063; 77067

== ENCOUNTER → 2020-12-12 09:30 | Outpatient (CLI) | payer MEDICARE, OTHER, SELFPAY ==
[2020-09-10 02:04] VITALS: BMI 33.3
--- NOTE | 2020-12-12 | DI.MG.S_ITS ---
UNILATERAL LEFT DIGITAL DIAGNOSTIC MAMMOGRAM 3D/2D WITH ADDITIONAL VIEWS: 12/12/2020 CLINICAL: Additional evaluation requested from prior study. Comparison is made to exams dated: 11/16/2020 mammogram, 02/08/2019 mammogram, and 01/25/2018 mammogram - [facility]. There are scattered fibroglandular elements in left breast. The previously seen asymmetry in the left breast is no longer visualized, presumably secondary to superimposed fibroglandular breast tissue on the prior exam. No significant masses, calcifications, or other findings are seen in the breast. IMPRESSION: NEGATIVE There is no mammographic evidence of malignancy. A 1 year screening mammogram is recommended. This exam was interpreted at Station ID: [id number]. NOTE: For mammograms, a report in lay terms will be sent to the patient. Approximately 15% of breast malignancies will not be visualized mammographically. In the management of a palpable breast mass, a negative mammogram must not discourage biopsy of a clinically suspicious lesion. Electronically Signed By: Geoffrey min/dae:12/12/2020 09:57:30 letter sent: Normal Exam ACR BI-RADS Category 1: Negative 3341F
== END ==
PROVIDERS: Family Provider Family Medicine; PCP Family Medicine; Referring Provider Family Medicine; Visit Provider Family Medicine
DX: R92.8 Other abnormal and inconclusive findings on diagnostic imaging of breast (principal)
CPT/HCPCS: 77065; G0279

== ENCOUNTER → 2020-12-24 11:47 | Outpatient (CLI) | payer MEDICARE, OTHER, SELFPAY ==
[2020-09-10 02:04] VITALS: BMI 33.3
--- NOTE | 2020-12-24 11:51 | DI.RAD.S_ITS ---
PROCEDURE: XR KNEE LT 3V INDICATIONS: knee pain TECHNIQUE: 3 views of the knee were acquired. COMPARISON: [facility], , KNEE 1-2 VIEWS RIGHT, 04/12/2009, 18:32. FINDINGS: Bones: No acute fracture or dislocation. Severe joint space narrowing is seen in the medial femorotibial compartment subchondral sclerosis and marginal osteophyte formation. Mild degenerative changes are seen in the lateral and anterior compartments. Soft tissues: No joint effusion. No suspicious soft tissue calcifications. IMPRESSION: No acute osseous abnormality. 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 Dictated by: Geoffrey Phillips M.D. on 12/24/2020 at 12:52 Approved by: Geoffrey Phillips M.D. on 12/24/2020 at 12:53
== END ==
PROVIDERS: Family Provider Family Medicine; PCP Family Medicine; Referring Provider Family Medicine; Visit Provider Family Medicine
DX: M25.562 Pain in left knee (principal); M17.12 Unilateral primary osteoarthritis, left knee
CPT/HCPCS: 73562

== ENCOUNTER → 2020-12-25 09:19 | Outpatient (CLI) | payer MEDICARE, OTHER, SELFPAY ==
[2020-09-10 02:04] VITALS: BMI 33.3
[2020-12-25 10:03] LABS: Add Manual Diff / Slide Review NO; Basophils Absolute Auto 100 /uL (0-100); Basophils Percent Auto 1.3 % (0-2); Eosinophils Absolute Auto 100 /uL (0-450); Eosinophils Percent Auto 2.3 % (2-4); Hematocrit 42.9 % (36-46); Hemoglobin 13.8 g/dL (12.0-16.0); Lymphocytes Absolute Auto 2200 /uL (1100-4500); Lymphocytes Percent Auto 52.2 % (25-40); Mean Corpuscular HGB Conc 32.2 % (30-36); Mean Corpuscular Hemoglobin 30.3 PG (26-34); Mean Corpuscular Volume 93.9 fL (80-100); Monocytes Absolute Auto 400 /uL (0-900); Monocytes Percent Auto 9.3 % (3-14); Neutrophils Absolute Auto 1500 /uL (1500-7000); Neutrophils Percent Auto 34.9 % (50-75); Platelet Count 201 X10^3/uL (150-400); Red Blood Cell Count 4.57 X10^6/uL (4.0-5.2); Red Cell Distribution Width 14.1 % (11.6-14.8); White Blood Cell Count 4.2 X10^3/uL (4.5-11.0)
[2020-12-25 10:07] LABS: Alanine Aminotransferase 21 IU/L (<35); Albumin 4.1 g/dL (3.5-5.0); Albumin Globulin Ratio 1.1 (1.0-2.8); Alkaline Phosphatase 132 U/L (38-126); Aspartate Aminotransferase 32 IU/L (14-36); BUN Creatinine Ratio 17.4 (6-22); Bilirubin Total 0.7 mg/dL (0.2-1.3); Blood Urea Nitrogen 16 mg/dL (7-17); Calcium 9.1 mg/dL (8.4-10.2); Carbon Dioxide 35 mmol/L (22-32); Chloride 103 mmol/L (98-107); Cholesterol 198 mg/dL (140-199); Estimated Glomerular Filt Rate 59.5 mL/min (>60); Globulin 3.7 g/dL (1.7-4.1); Glucose 91 mg/dL (80-110); HDL Cholesterol 52 mg/dL (40-60); HEMOLYSIS < 15 (0-50); LDL Cholesterol Calculated 125 mg/dL (<100); Potassium 3.6 mmol/L (3.4-5.1); Sodium 140 mmol/L (137-145); Total Protein 7.8 g/dL (6.3-8.2); Triglycerides 104 mg/dL (35-150)
[2020-12-25 10:46] LABS: TSH w/ Reflex to FT4 1.84 uIU/mL (0.47-4.68)
== END ==
PROVIDERS: Family Provider Family Medicine; PCP Family Medicine; Referring Provider Family Medicine; Visit Provider Family Medicine
DX: I10 Essential (primary) hypertension (principal); I48.11 Longstanding persistent atrial fibrillation; N17.9 Acute kidney failure, unspecified
CPT/HCPCS: 36415; 80053; 80061; 84443; 85025

== ENCOUNTER → 2021-12-12 12:18 | Outpatient (CLI) | payer MEDICARE, OTHER, SELFPAY ==
[2021-04-08 16:41] VITALS: BMI 33.3
[2021-12-12 13:17] LABS: Add Manual Diff / Slide Review NO; Basophils Absolute Auto 100 /uL (0-100); Basophils Percent Auto 1.1 % (0-2); Eosinophils Absolute Auto 100 /uL (0-450); Eosinophils Percent Auto 1.5 % (2-4); Hematocrit 43.2 % (36-46); Hemoglobin 14.1 g/dL (12.0-16.0); Lymphocytes Absolute Auto 2500 /uL (1100-4500); Lymphocytes Percent Auto 54.5 % (25-40); Mean Corpuscular HGB Conc 32.7 % (30-36); Mean Corpuscular Hemoglobin 30.5 PG (26-34); Mean Corpuscular Volume 93.2 fL (80-100); Monocytes Absolute Auto 400 /uL (0-900); Monocytes Percent Auto 8.5 % (3-14); Neutrophils Absolute Auto 1600 /uL (1500-7000); Neutrophils Percent Auto 34.4 % (50-75); Platelet Count 191 X10^3/uL (150-400); Red Blood Cell Count 4.63 X10^6/uL (4.0-5.2); Red Cell Distribution Width 14.4 % (11.6-14.8); White Blood Cell Count 4.5 X10^3/uL (4.5-11.0)
[2021-12-12 13:41] LABS: Alanine Aminotransferase 19 IU/L (<35); Alkaline Phosphatase 145 U/L (38-126); Aspartate Aminotransferase 33 IU/L (14-36); BUN Creatinine Ratio 15.6 (6-22); Bilirubin Total 0.9 mg/dL (0.2-1.3); Blood Urea Nitrogen 14 mg/dL (7-17); Calcium 9.3 mg/dL (8.4-10.2); Carbon Dioxide 31 mmol/L (22-32); Chloride 106 mmol/L (98-107); Estimated Glomerular Filt Rate > 60.0 mL/min (>60); Globulin 3.9 g/dL (1.7-4.1); Glucose 93 mg/dL (80-110); HEMOLYSIS < 15 (0-50); Lipase 55 U/L (23-300); Potassium 3.9 mmol/L (3.4-5.1); Sodium 141 mmol/L (137-145); Total Protein 7.9 g/dL (6.3-8.2)
[2021-12-12 14:08] LABS: Thyroid Stimulating Hormone 1.71 uIU/mL (0.47-4.68)
[2021-12-12 15:24] LABS: Creatinine Urine Random 46.5 mg/dL
[2021-12-12 15:29] LABS: Microalbumi Creatinin Ratio Ur 40.8 ug/mg CR (<30); Microalbumin Urine Random 1.9 mg/dL (0-1.6)
== END ==
PROVIDERS: Family Provider Family Medicine; PCP Family Medicine; Referring Provider Physician Assistant; Visit Provider Physician Assistant
DX: I10 Essential (primary) hypertension (principal); I48.11 Longstanding persistent atrial fibrillation; D3A.8 Other benign neuroendocrine tumors; N17.9 Acute kidney failure, unspecified
CPT/HCPCS: 36415; 80053; 82043; 82570; 83690; 84443; 85025

== ENCOUNTER → 2021-12-16 12:57 | Outpatient (CLI) | payer MEDICARE, OTHER, SELFPAY ==
[2021-04-08 16:41] VITALS: BMI 33.3
[2021-12-16 15:50] LABS: Gamma Glutamyl Transpeptidase 19 U/L (12-43); Lactate Dehydrogenase 502 U/L (313-618)
== END ==
PROVIDERS: Physician Assistant; Family Provider Family Medicine; PCP Family Medicine; Referring Provider Family Medicine; Visit Provider Family Medicine
DX: R74.8 Abnormal levels of other serum enzymes (principal)
CPT/HCPCS: 36415; 82977; 83615; 83915

== ENCOUNTER → 2022-01-13 11:39 | Outpatient (CLI) | payer MEDICARE, OTHER, SELFPAY ==
[2021-04-08 16:41] VITALS: BMI 33.3
--- NOTE | 2022-01-13 | DI.MG.S_ITS ---
BILATERAL DIGITAL SCREENING MAMMOGRAM 3D/2D WITH CAD: 01/13/2022 CLINICAL: Routine screening. Comparison is made to exams dated: 12/12/2020 mammogram, 11/16/2020 mammogram, 02/08/2019 mammogram, 01/25/2018 mammogram, and 10/16/2016 mammogram - [facility]. There are scattered fibroglandular elements in both breasts. Current study was also evaluated with a Computer Aided Detection (CAD) system. No significant masses, calcifications, or other findings are seen in either breast. There has been no significant interval change. IMPRESSION: NEGATIVE There is no mammographic evidence of malignancy. A 1 year screening mammogram is recommended. This exam was interpreted at Station ID: [id number]. NOTE: For mammograms, a report in lay terms will be sent to the patient. Approximately 15% of breast malignancies will not be visualized mammographically. In the management of a palpable breast mass, a negative mammogram must not discourage biopsy of a clinically suspicious lesion. Electronically Signed By: Christian last/dae:01/13/2022 13:49:06 letter sent: Normal Exam ACR BI-RADS Category 1: Negative 3341F
== END ==
PROVIDERS: Family Provider Family Medicine; PCP Family Medicine; Referring Provider Family Medicine; Visit Provider Family Medicine
DX: Z12.31 Encounter for screening mammogram for malignant neoplasm of breast (principal)
CPT/HCPCS: 77063; 77067

== ENCOUNTER → 2022-03-20 13:27 | Outpatient (CLI) | payer MEDICARE, OTHER, SELFPAY ==
[2021-04-08 16:41] VITALS: BMI 33.3
[2022-03-20 15:10] LABS: Alkaline Phosphatase 157 U/L (38-126)
== END ==
PROVIDERS: Family Provider Family Medicine; PCP Family Medicine; Referring Provider Family Medicine; Visit Provider Family Medicine
DX: R74.8 Abnormal levels of other serum enzymes (principal)
CPT/HCPCS: 36415; 84075

== ENCOUNTER → 2022-07-17 13:53 | Outpatient (CLI) | payer MEDICARE, OTHER, SELFPAY ==
[2021-04-08 16:41] VITALS: BMI 33.3
--- NOTE | 2022-07-17 | DI.CT.S_ITS ---
PROCEDURE: CT HEAD/BRAIN WO CON INDICATIONS: Dizziness and giddiness. TECHNIQUE: Noncontrast 4.5 mm thick angled axial sections acquired from the foramen magnum to the vertex, with coronal and sagittal reformats. For radiation dose reduction, the following was used: automated exposure control, adjustment of mA and/or kV according to patient size. COMPARISON: None. FINDINGS: Image quality: Excellent. CSF spaces: Basal cisterns are patent. No extra-axial fluid collections. Ventricles are normal in size and shape. Brain: No midline shift. No intracranial masses or hemorrhage. Rodriguez-white matter interface is normal. Subcortical and periventricular white matter hypodensities are consistent with microvascular ischemic disease. Skull and face: Calvarium and visualized facial bones are intact, without suspicious lesions. Sinuses: The right maxillary sinus has mucosal thickening. The remaining sinuses and mastoids are clear. IMPRESSION: 1. No acute intracranial abnormality. 2. Cerebral volume loss and small vessel ischemic changes. 3. Right maxillary sinus disease. Dictated by: Jhonathan Lai M.D. on 07/17/2022 at 15:09 Approved by: Jhonathan Lai M.D. on 07/17/2022 at 15:13
--- NOTE | 2022-07-17 | DI.ECHO.S_ITS ---
[facility] +---------+ : : [address] : : : : [id number] : : : : Phone: [phone]+ Echocardiogram Report + + :Name: CLARIBEL SANCHEZ Study Date: 07/17/2022 Height: 66 in : :[facility] ReadingLocation: Weight: 222 lb : : Gender: Female BSA: 2.1 m2 : :: 1945 Age: 77 yrs BP: 163/110 mmHg: :Reason For Study: Murmur : :Ordering Physician: RITA, : :LOYDA Arroyo Performed By: Yuriy Christianson : :Referring: LOYDA SALINAS : + + Interpretation Summary The left ventricle is normal in size and wall thickness. Left ventricular systolic function is normal. The ejection fraction is estimated to be 60-65%. There are no focal wall motion abnormalities. The right ventricle is normal in size and function. The right ventricular systolic pressure is estimated to be at least 35 mmHg based on an estimated right atrial pressure of 3 mm Hg. The left atrium is moderately dilated. The right atrium is borderline dilated. There is mild mitral regurgitation. There is paradoxical low flow low gradient moderate aortic stenosis. The calculated aortic valve area is 1.2 cm2. The aortic valve mean gradient is 12 mmHg. There is no other significant valvular heart disease. The aortic root is normal size. Procedure: A two-dimensional transthoracic echocardiogram with color flow and Doppler was performed. The study quality was technically adequate. Comparison is made with the echocardiogram of 09/09/2018. The patient was in atrial fibrillation with heart rates between 75 bpm during the exam. Left Ventricle: The left ventricle is normal in size and wall thickness. Left ventricular systolic function is normal. The ejection fraction is estimated to be 60-65%. There are no focal wall motion abnormalities. Diastolic function could not be accurately assessed due to unobtainable data. Right Ventricle: The right ventricle is normal in size and function. Atria: The left atrium is moderately dilated. The right atrium is borderline dilated. The interatrial septum grossly appears intact with no obvious evidence for an atrial septal defect. Mitral Valve: There is mild mitral annular calcification. There is mild mitral regurgitation. Aortic Valve: The aortic valve is mildly calcified. There is moderately reduced leaflet mobility. There is moderate aortic stenosis. The calculated aortic valve area is 1.2 cm2. The aortic valve mean gradient is 12 mmHg. No aortic regurgitation is present. Tricuspid Valve: The tricuspid valve is normal in structure and function. There is mild tricuspid regurgitation. The right ventricular systolic pressure is estimated to be at least 35 mmHg based on an estimated right atrial pressure of 3 mm Hg. Pulmonic Valve: The pulmonic valve is normal in structure and function. There is trace pulmonic regurgitation. There is no other significant valvular heart disease. Great Vessels: The aortic root is normal size. The dimensions of the ascending aorta are normal. The IVC is of normal diameter and collapses greater than 50% with a sniff. This suggests a low right atrial pressure of 3 mm Hg. Pericardium/ Pleura There is no pericardial effusion. There is no pleural effusion. MMode/2D Measurements & Calculations LVIDd: 4.4 cm LVOT diam: 2.3 cm LVIDs: 2.8 cm Ao root diam: 2.8 cm FS: 37.0 % asc Aorta Diam: 3.2 cm IVSd: 0.96 cm LVPWd: 0.91 cm LV fox. diameter/BSA (cm/m^2): 2.1 LV sys. diameter/BSA (cm/m^2): 1.3 LA A2 area: 25.8 cm2 RA long axis: 6.3 cm LA A4 area: 32.6 cm2 RA area: 21.2 cm2 LA length (vol): 7.3 cm RA vol: 61.1 ml LA vol: 97.6 ml RA : 29.2 ml/m2 LA vol index: 46.7 ml/m2 TAPSE: 2.1 cm Doppler Measurements & Calculations Ao V2 max: 235.9 cm/sec LVOT Max Inocencio: 68.0 cm/sec Ao V2 mean: 165.0 cm/sec LV V1 max P.9 mmHg Ao max P.3 mmHg LV V1 VTI: 17.0 cm Ao mean P.3 mmHg CANDIE(I,D): 1.2 cm2 Ao V2 VTI: 55.9 cm CANDIE(V,D): 1.2 cm2 sev ratio: 0.30 CANDIE indexed to BSA (cm^2/m^2): 0.59 MV E max inocencio: 143.0 cm/sec TR max inocencio: 281.6 cm/sec MV A max inocencio: 35.3 cm/sec TR max P.7 mmHg MV E/A: 4.0 MV dec time: 0.21 sec SVLVOT): 69.4 ml Reading Physician:04:56 PM
== END ==
PROVIDERS: Family Provider Family Medicine; PCP Family Medicine; Referring Provider Physician Assistant; Visit Provider Physician Assistant
DX: R42 Dizziness and giddiness (principal); R01.1 Cardiac murmur, unspecified; I48.11 Longstanding persistent atrial fibrillation; Z90.411 Acquired partial absence of pancreas; D3A.8 Other benign neuroendocrine tumors; J32.0 Chronic maxillary sinusitis; I34.0 Nonrheumatic mitral (valve) insufficiency; I35.0 Nonrheumatic aortic (valve) stenosis
CPT/HCPCS: 70450; 93306

== ENCOUNTER → 2023-01-28 12:19 | Outpatient (CLI) | payer MEDICARE, OTHER, SELFPAY ==
[2021-04-08 16:41] VITALS: BMI 33.3
[2023-01-28 12:41] LABS: Add Manual Diff / Slide Review NO; Basophils Absolute Auto 0 /uL (0-100); Basophils Percent Auto 0.8 % (0-2); Eosinophils Absolute Auto 0 /uL (0-450); Eosinophils Percent Auto 0.9 % (2-4); Lymphocytes Absolute Auto 3000 /uL (1100-4500); Lymphocytes Percent Auto 57.3 % (25-40); Mean Corpuscular HGB Conc 33.3 % (30-36); Mean Corpuscular Hemoglobin 30.7 PG (26-34); Mean Corpuscular Volume 92.3 fL (80-100); Monocytes Absolute Auto 500 /uL (0-900); Monocytes Percent Auto 9.7 % (3-14); Neutrophils Absolute Auto 1600 /uL (1500-7000); Neutrophils Percent Auto 31.3 % (50-75); Platelet Count 194 X10^3/uL (150-400); Red Blood Cell Count 4.55 X10^6/uL (4.0-5.2); Red Cell Distribution Width 14.6 % (11.6-14.8); White Blood Cell Count 5.3 X10^3/uL (4.5-11.0)
[2023-01-28 12:47] LABS: Hemoglobin A1C% w Est Avg Glu 5.9 % (4.0-6.0)
[2023-01-28 12:52] LABS: Blood Urea Nitrogen 20 mg/dL (7-17); Calcium 8.5 mg/dL (8.4-10.2); Carbon Dioxide 30 mmol/L (22-32); Chloride 106 mmol/L (98-107); Estimated Glomerular Filt Rate > 60 mL/min (>60); Glucose 93 mg/dL (80-110); HEMOLYSIS 16 (0-50); Potassium 4.1 mmol/L (3.4-5.1); Sodium 139 mmol/L (137-145)
== END ==
PROVIDERS: Family Provider Family Medicine; PCP Family Medicine; Referring Provider Orthopaedic Surgery Foot and Ankle Surgery; Visit Provider Orthopaedic Surgery Foot and Ankle Surgery
DX: Z01.818 Encounter for other preprocedural examination (principal); R73.9 Hyperglycemia, unspecified; Z01.812 Encounter for preprocedural laboratory examination
CPT/HCPCS: 36415; 80048; 83036; 85025; 93005

== ENCOUNTER → 2023-02-18 13:56 | Outpatient (CLI) | payer MEDICARE, OTHER, SELFPAY ==
[2021-04-08 16:41] VITALS: BMI 33.3
--- NOTE | 2023-02-18 | DI.MG.S_ITS ---
BILATERAL DIGITAL SCREENING MAMMOGRAM 3D/2D WITH CAD: 02/18/2023 CLINICAL: Routine screening. Comparison is made to exams dated: 01/13/2022 mammogram, 11/16/2020 mammogram, 02/08/2019 mammogram, and 01/25/2018 mammogram - [facility]. There are scattered areas of fibroglandular density in both breasts (category b / 25%-50% glandular tissue). Current study was also evaluated with a Computer Aided Detection (CAD) system. No significant masses, calcifications, or other findings are seen in either breast. There has been no significant interval change. IMPRESSION: NEGATIVE There is no mammographic evidence of malignancy. A 1 year screening mammogram is recommended. Based on the Tyrer Cuzick model (a risk assessment model) the patient's lifetime risk is 3.7% and her 10 year risk is 0.0%. According to the ACR, ACS, and NCCN guidelines, an annual breast MRI exam along with mammogram is recommended if the patient's lifetime risk is 20% or greater. This exam was interpreted at Station ID: [id number]. NOTE: For mammograms, a report in lay terms will be sent to the patient. Approximately 15% of breast malignancies will not be visualized mammographically. In the management of a palpable breast mass, a negative mammogram must not discourage biopsy of a clinically suspicious lesion. Electronically Signed By: Jhonathan lewis/dae:02/18/2023 16:08:18 letter sent: Normal Exam ACR BI-RADS Category 1: Negative 3341F
== END ==
PROVIDERS: Family Provider Family Medicine; PCP Family Medicine; Referring Provider Family Medicine; Visit Provider Family Medicine
DX: Z12.31 Encounter for screening mammogram for malignant neoplasm of breast (principal)
CPT/HCPCS: 77063; 77067

== ENCOUNTER 2023-03-20 14:23 | Observation (INO) | payer MEDICARE, OTHER, SELFPAY ==
[2021-04-08 16:41] VITALS: BMI 33.3
[2023-03-15 12:47] VITALS: BMI 36.8
[2023-03-19] VITALS (14 sets, daily range): BP systolic 134–213; BP diastolic 70–108; PULSE 63–87; RESP 14–20; TEMP 36.2–36.6; O2SAT 95–99; BMI 34.4
[2023-03-19] MEDS: ACETAMINOPHEN 325 MG TABLET 975 MG PO (07:09)
[2023-03-19] MEDS: LACTATED RINGERS 1,000 ML 42 ML IV ×2 (07:10→10:02)
[2023-03-19] MEDS: PREGABALIN 75 MG CAPSULE PO (07:24)
--- NOTE | 2023-03-19 07:30 | PM.PREOP ---
Pre-operative Note Interval Note History & Physical reviewed/Exam performed by Physician: Yes Changes to H&P: No
[2023-03-19] MEDS: CEFAZOLIN 2 GM/100 ML PREMIX 100 ML IV ×3 (07:54→23:07)
--- NOTE | 2023-03-19 08:00 | DI.RAD.S_ITS ---
PROCEDURE: XR KNEE LT 1TO2V INDICATIONS: LT TOTAL KNEE TECHNIQUE: 2 view(s) of the knee [facility]. [facility], 04/12/2009, 18:32. FINDINGS: Bones: Patient is status post knee joint arthroplasty. Hardware components are in expected positions. Visualized bony structures are intact. Soft tissues: Overlying postoperative changes are noted. IMPRESSION: Postsurgical changes from left knee arthroplasty. No definite unexpected findings. Dictated by: Geoffrey Elkins M.D. on 03/19/2023 at 15:45 Approved by: Geoffrey Elkins M.D. on 03/19/2023 at 15:47
[2023-03-19] MEDS: TRANEXAMIC ACID 1,000 MG VIAL 2000 MG INJ ×2 (08:12→10:40)
--- NOTE | 2023-03-19 08:27 | SUR.OPER ---
Supine on padded OR bed, head on pillow, arms secured on padded arm boards at <90 degrees abduction, legs uncrossed, safety belt at thigh, tape over blanket over lower right leg. [employer] positioner used to secure left leg. Padded with foam and secured with coban
[2023-03-19] MEDS: BUPIVACAINE 0.25% (PF) 60 ML, EPINEPHrine 0.3 MG INJ (10:34)
[2023-03-19] MEDS: BUPIVACAINE LIPOSOME 266 MG/20 ML VIAL INJ (10:35)
--- NOTE | 2023-03-19 11:25 | P.OP_ITS ---
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 She has failed extensive conservative treatment. She is been indicated for total knee arthroplasty. The risks and benefits of the procedure have been discussed with the patient and given the opportunity to ask questions. The risks of surgery include but are not limited to infection, persistence of pain, fracture, need for additional procedures, damage to nerves and blood vessels, DVT, PE, cardiopulmonary complications and . The patient expressed a thorough understanding of the risks and benefits of surgery and has elected to proceed. Consent was signed. During the operation, the services of a physician certified surgical technician were medically indicated and necessary to provide the exposure of the operative site for the surgical procedure and to maintain the limb in a proper position to carry out the operation safely and efficiently. Without a qualified university administrative assistant being present this would extended the operative procedure and made the procedure technically more difficult to perform. Surgeon: Elda Schwarz Correctional Officer Captain: Yoana Matthew Anesthesia Type: Spinal and Local Operative Notes Findings: End-stage [id number] arthritis tricompartmental disease. Severely eburnated bone medial compartment proximal tibia and medial femoral condyle. Chronically torn ACL. Closure Type: primary Specimen(s): none sent Prosthetic devices, grafts, tissues, transplants, or devices: Francois and nephew journey bcs 2 Oxinium femur size 7 left\ Francois and Nephew journey size 5 left nonporous tibial base plate Patella 32 mm x 7.5 mm thick Lizet 2 round Poly left size 5612 mm jourlubbock constrained articular insert Estimated Blood Loss (mL): 50 Blood products transfused: none Tourniquet time (min): 130 Procedure in detail: The Patient was seen in the preoperative area where the patient and site of comer rgery were identified in the operative knee was marked informed consent confirmed. Patient received the appropriate preoperative antibiotics and medications was taken to the operating room placed on operating table in the supine position. Spinal and general anesthetic were administered. The operative extremity was then prepped and draped in the standard sterile fashion with a nonsterile tourniquet high on the thigh. Patient was placed on the green foam bolsters. A lateral post was placed at the level of the proximal thigh back as a lateral post. Formal time-out procedure was performed confirming the patient's side and site of surgery and administration of appropriate preoperative antibiotics and implants were in the room accounted for. All were in agreement. Patient was prepped and draped in the standard sterile fashion and the foot was placed into the [facility] leg nichols. This was taken into high flexion and the incision was marked out over the anterior knee to the level of the medial tubercle tubercle. The Esmarch was then used for exsanguination and the tourniquet was inflated to 250 mmHg. Was made through the skin and subcutaneous tissue in high flexion this was then brought down into 30? of flexion for the medial parapatellar arthrotomy. A marker pin was used to becki the arthrotomy site for later repair. Joint fluid was evacuated. There was severe bone-on-bon e arthritis in all compartments. The anterior osteophytes and soft tissues were removed. Routine medial release was initially made along the medial proximal tibia. Then the rotational landmarks of Whitesides line and the trans epicondylar axis were marked on the femur with electrocautery. Then the intramedullary guide for the femur was created. The distal femoral cut was made in 6? of valgus using the intramedullary guide with the cut setting on 0+ to standard cut. The ACL was chronically torn. Remnants were released and the PCL released. Remnants of the medial and lateral menisci were removed. There was the appearance of some deformity of the proximal tibia on the preoperative x-rays therefore the extramedullary guide was selected. The proximal tibia was then cut using the extramedullary guide taking 10 mm off the less involved side this was the lateral plateau. Several cut passes were made as there was extremely eburnated bone on the medial compartment and this was carefully removed with a saw. The Sky wing was used to check the slope through the guide. In extension remainders of the medial and lateral menisci were removed. The extension flexion gaps were then checked using both the flexion extension blocks. This was selected for an 11 mm poly--then upsized to a 12 with final poly insertion. Femur was then sized and the rotation set using the posterior condyle referencing 3? of external rotation. This measured a size 7. There was not a cobalt chromium size 7 available therefore Oxinium was selected. Cut block was then placed and the anterior, posterior and chamfer cuts were then made. The posterior osteophytes and soft tissues were then removed. There was a small remainder of osteophyte posterior laterally and this was carefully removed around the popliteus tendon. Then in extension the posterior capsule was injected with a mixture of 60 mL of 0.25% Marcaine and 20 mL of Exparel care to avoid excessive injection posterior laterally. The remainder of this was saved for the capsule and subcutaneous tissue and placed during cement curing. Attention was then returned to the tibia and this was prepared with the rotation set by the extramedullary guide. Lined up with the tibial crest and the 2nd toe. The tibial trial was then pinned in place and the trial femoral components were placed. Then the intercondylar notch was cut through the femoral trial to create the box this was done with the distal than the proximal drill and then the box cut distally and then proximally. Next the insert was placed and the trial poly placed. This was stable in flexion and extension and there was a 0- 135 degree range of motion. The leg was then taken into extension and the patella was everted and the patella was cut to accommodate the patellar button. This was sized to a 32 mm button for a 9 mm thickness to recreate the original dimensions of the patella. Leg was flexed back up the poly removed. The tibia was then finished with the drill and flange cuts and then this was removed. All trials were removed. The wound and bone was irrigated with pulsatile lavage. This was then dried with a sponge. The components were verified and opened and the cement was mixed. Cement was applied to the components and then to the bone then the tibia was cemented in place 1st followed by the femur then the patella. Excess cement was removed. Remainder of the injection was injected around the capsule. trial poly was placed back in the leg was placed into extension for the patellar cementing. After this was cured approximately 15 minutes later and the dilute Betadine solution was placed for at least 3 minutes in the wound this was then irrigated out and the final poly 12 mm medial constrained was placed. The tourniquet was released hemostasis was achieved. The capsule was closed with 1. Ethibond suture. Subcutaneous layer was closed with 3-0 Vicryl suture. Skin was closed with a running V lock suture and Dermabond. Brisa dressing was placed due to the patient's known requirements for strong anticoagulation. An Maxi wrap was applied. Anesthetic was terminated the patient was woken from anesthesia and taken to recovery room in good condition. There no immediate complications from this procedure. The patient will be maintained on a standard total knee replacement protocol with weight-bearing as tolerated. Complications: none Post-operative Condition: stable Disposition: PACU Plan for aftercare: Weightbear as tolerated. Knee range of motion focus on full extension. They restart Eliquis postoperative day 1. Has a brisa dressing in place. Batteries on the brisa dressing will last 1 week at which point you can cut off the hose and the bandage that remain in place until your follow-up appointment at 2 weeks. Commence physical therapy.
--- NOTE | 2023-03-19 14:57 | SUR.PHASEII ---
1435 Dr Schwarz here to evaluate pt. Pt stands but is unable to ambulate forward. Admission orders received. Report to COLLINS Vieira.
[2023-03-19] MEDS: ACETAMINOPHEN 325 MG TABLET 650 MG PO (15:37)
[2023-03-19] MEDS: LACTATED RINGERS 1,000 ML 100 ML IV (15:38)
--- NOTE | 2023-03-19 16:10 | PC.NURSE ---
notified provider that pt's BP is 200s, currently it is 213/106. provider says to give losartan and the metoprolol early.
--- NOTE | 2023-03-19 16:15 | PT-IP ANOTE ---
Attempted x2 this afternoon. Patient still having numbness in buttock and no bladder control. Patient's BP was high both attempts (190's then 210's systolic). RN giving BP meds now. Will hold PT eval until tomorrow AM. Requested that nursing staff have patient dangle EOB this evening when vitals are stable.
[2023-03-19] MEDS: LOSARTAN 50 MG TABLET PO (16:18)
[2023-03-19] MEDS: METOPROLOL ER 25 MG TABLET PO (16:18)
[2023-03-19] MEDS: HYDROCODONE/ACET 5/325 TABLET 1 TAB PO ×2 (16:26→20:40)
[2023-03-19] MEDS: LABETALOL 20 MG/4 ML SYRINGE 10 MG IV (18:22)
[2023-03-20] VITALS (8 sets, daily range): BP systolic 118–164; BP diastolic 56–79; PULSE 67–88; RESP 16–18; TEMP 36.3–37.1; O2SAT 95–98
[2023-03-20] MEDS: HYDROCODONE/ACET 5/325 TABLET 1 TAB PO ×4 (00:32→16:03)
[2023-03-20] MEDS: HYDROCODONE/ACET 5/325 TABLET 2 TAB PO ×2 (04:47→20:50)
[2023-03-20] MEDS: PANTOPRAZOLE DR 20 MG TABLET PO (05:41)
[2023-03-20 06:20] LABS: Hematocrit 38.5 % (36-46); Hemoglobin 12.9 g/dL (12.0-16.0)
[2023-03-20] MEDS: DOCUSATE 100 MG CAPSULE PO ×2 (08:09→20:42)
[2023-03-20] MEDS: NIFEdipine 30 MG TAB ER PO (08:09)
[2023-03-20] MEDS: LOSARTAN 50 MG TABLET PO (08:10)
[2023-03-20] MEDS: APIXABAN 5 MG TABLET PO ×2 (08:10→20:42)
--- NOTE | 2023-03-20 09:26 | PM.PNPO.1 ---
Subjective Subjective Date Patient Seen: 03/20/23 Time Patient Seen: 09:26 Interval history: Patient currently working with physical therapy and as she was sitting up at the edge of bed get very dizzy and was laid back down. No fever or chills. No nausea or vomiting. No shortness of breath or chest pain. Knee pain is been moderate to severe. Exam Vital Signs (past 8 hours): - 03/20/23 06:34 03/20/23 08:10 03/20/23 08:00 Temperature 98.2 F 97.3 F L Pulse Rate 76 76 67 Respiratory Rate 16 17 Blood Pressure 120/56 L 118/73 118/73 Pulse Oximetry 95 96 Oxygen Flow Rate 0 Oxygen Delivery Method Room Air Oxygen Flow Rate 0 Narrative Exam Narrative: 78-year-old female resting in bed in no apparent distress. Izabela dressing is on and functioning. Motor functions intact bilateral lower extremities. Sensation grossly intact to light touch bilateral lower extremities. Const General: cooperative and comfortable Nutritional Appearance: well nourished Orientation: alert Resp Effort & Inspection: normal respiratory effort and able to speak in complete sentences Objective Labs 03/20/23 06:05 Labs: Laboratory Results - last 24 hr 03/20/23 06:05 Hgb 12.9 Hct 38.5 PFSH Medical History Acute hypokalemia Acute pancreatitis Candidal intertrigo Chronic renal disease Elevated alkaline phosphatase level Facial eczema Fall from slipping on ice Ganglion cyst GERD (gastroesophageal reflux disease) History of genitourinary disorders unknown Hypertension Longstanding persistent atrial fibrillation Morbid obesity due to excess calories (06/12/16) New onset a-fib Pancreatic mass Primary pancreatic neuroendocrine tumor Pyelonephritis Vertigo Surgical History History of bladder suspension procedure History of partial hysterectomy History of partial pancreatectomy History of total right knee replacement (2008) Status post surgery (06/15/11) Family History Father Chronic lung disease Mother Breast cancer Social History marital status: household members: spouse Smoking Status: Never smoker alcohol intake: never substance use type: does not use Assessment & Plan Post-op Postoperative Procedures: Procedures Operation Date: 03/19/23 07:45 Actual Procedure Side Surgeon p Total Knee Arthroplasty Left Elda Schwarz MD Postoperative day: 1 Postoperative status: marginal pain control Postoperative status narrative: Stable status post left total knee arthroplasty Postoperative plan: routine post-op care Postoperative plan narrative: Weight-bearing as tolerated. Knee range of motion focus on full extension. Patient has restarted her Eliquis. Multimodal pain management Possible discharge later today or tomorrow after physical therapy if safe for home environment. Quality VTE Deep Vein Thrombosis/Pulmonary Embolism Present on Admission: No
--- NOTE | 2023-03-20 09:36 | P.DS_ITS ---
History of Present Illness History of Present Illness Date Patient Seen: 03/20/23 Time Patient Seen: 09:36 Chief complaint: Left knee pain Narrative: See progress note Discharge Providers Provider Discharge Date: 03/20/23 Primary care physician: Ki Islas MD Consults: 03/18/23 06:00 Consult to Anesthesiology Routine Comment: Consulting Provider: Anesthesiologist Reason for consultation: Regional block for post operative pain control 03/19/23 14:40 Consult to Discharge Planning Routine Comment: Consult to Physical Therapy Evaluate & Treat Comment: Physician Instructions: postop TKA protocol Discharge provider: Arslan Hatch PA-C Summary Hospital Course Discharge Diagnosis: Left knee osteoarthritis Hospital Course: Total knee arthroplasty left CPT code 47051 Same procedure as scheduled: Yes Indications: Patient is a 78-year-old female with 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 She has failed extensive conservative treatment.? She is been indicated for total knee arthroplasty.? The risks and benefits of the procedure have been discussed with the patient and given the opportunity to ask questions.? The risks of surgery include but are not limited to infection, persistence of pain, fracture, need for additional procedures, damage to nerves and blood vessels, DVT, PE, cardiopulmonary complications and .? The p atient expressed a thorough understanding of the risks and benefits of surgery and has elected to proceed.? Consent was signed. During the operation, the services of a physician catering assistant were medically indicated and necessary to provide the exposure of the operative site for the surgical procedure and to maintain the limb in a proper position to carry out the operation safely and efficiently.? Without a qualified clinic office assistant being present this would extended the operative procedure and made the procedure technically more difficult to perform. Surgeon: Elda Schwarz Ultrasonic Solderer: Yoana Matthew Anesthesia Type: Spinal and Local Operative Notes Findings: End-stage [id number] arthritis tricompartmental disease.? Severely eburnated bone medial compartment proximal tibia and medial femoral condyle.? Chronically torn ACL. Closure Type: primary Specimen(s): none sent Prosthetic devices, grafts, tissues, transplants, or devices: Francois and nephew journey bcs 2 Oxinium femur size 7 left\ Francois and Nephew journey size 5 left nonporous tibial base plate Patella 32 mm x 7.5 mm thick Lizet 2 round Poly left size 5612 mm journey constrained articular insert Estimated Blood Loss (mL): 50 Blood products transfused: none Tourniquet time (min): 130 Patient admitted to the hospital for left total knee arthroplasty. Patient consented to the same. Patient taken operating room underwent left total knee arthroplasty March 19, 2023. Patient back in her room recovering well as in stable condition. Patient did get dizzy when she is set up to the edge of bed with phy sical therapy. She was placed supine and she is feeling well. She will try to work with physical therapy again later this afternoon. She will be on routine postop protocol for total knee arthroplasty. Weightbearing as tolerated. SCDs and Eliquis for DVT prophylaxis. Multimodal pain management. Discharge home today after afternoon physical therapy if safe for home environment. Exam Vital Signs (past 8 hours): - 03/20/23 06:34 03/20/23 08:10 03/20/23 08:00 Temperature 98.2 F 97.3 F L Pulse Rate 76 76 67 Respiratory Rate 16 17 Blood Pressure 120/56 L 118/73 118/73 Pulse Oximetry 95 96 Oxygen Flow Rate 0 Oxygen Delivery Method Room Air Oxygen Flow Rate 0 Narrative Exam Narrative: See progress note Objective Labs 03/20/23 06:05 Labs: Laboratory Results - last 24 hr 03/20/23 06:05 Hgb 12.9 Hct 38.5 PFSH Medical History Acute hypokalemia Acute pancreatitis Candidal intertrigo Chronic renal disease Elevated alkaline phosphatase level Facial eczema Fall from slipping on ice Ganglion cyst GERD (gastroesophageal reflux disease) History of genitourinary disorders unknown Hypertension Longstanding persistent atrial fibrillation Morbid obesity due to excess calories (06/12/16) New onset a-fib Pancreatic mass Primary pancreatic neuroendocrine tumor Pyelonephritis Vertigo Surgical History History of bladder suspension procedure History of partial hysterectomy History of partial pancreatectomy History of total right knee replacement (2008) Status post surgery (06/15/11) Family History Father Chronic lung disease Mother Breast cancer Social History marital status: household members: spouse Smoking Status: Never smoker alcohol intake: never substance use type: does not use Discharge Assessment & Plan Assessment and Plan Assessment: Patient progressing as expected status post left total knee arthroplasty Plan of Treatment: Patient will be maintained on postop protocol for left total knee arthroplasty with weight-bearing as tolerated Multimodal pain management Patient has restarted her Eliquis Discharge home today after afternoon physical therapy if safe for home environment. Discharge Plan Discharge Plan Patient Disposition: Home Discharge orders & Medications Discharge Orders: Discharge (Order); Ordered 03/20/23 Ordered By: Arslan Hatch Prescriptions: New ondansetron HCl 4 mg tablet 4 mg PO Q8H PRN (Reason: nausea and vomiting) Qty: 5 1RF Continued triamcinolone acetonide 0.1 % cream See Rx Instructions topical BID Qty: 30 0RF Rx Instructions: 1 mg topically bid TOP BID (DME) Disabled Parking See Rx Instructions .ROUTE .MEDSUPPLY Qty: 1 0RF Rx Instructions: I find this patient to be medically disabled and qualified for Disabled Pa rking as indicated, and signed, on the Accompanying Disabled Parking Application for Individuals losartan [Cozaar] 50 mg tablet 50 mg PO DAILY Qty: 90 3RF metoprolol succinate 25 mg tablet extended release 24 hr 25 mg PO BEDTIME Qty: 90 3RF nifedipine 30 mg tablet extended release 30 mg PO DAILY Qty: 90 3RF oxybutynin chloride 15 mg tablet extended release 24hr 15 mg PO DAILY Qty: 90 3RF Eliquis 5 mg tablet 5 mg PO BID Qty: 180 3RF hydrocortisone 2.5 % ointment 1 applic topical BID Qty: 20 0RF Rx Instructions: 5 days omeprazole 20 mg capsule,delayed release(DR/EC) 20 mg PO DAILY Qty: 90 3RF flaxseed oil 1,000 mg capsule 1,000 mg PO DAILY nystatin 100,000 unit/gram cream 1 applic topical TID PRN (Reason: Rash) acetaminophen 650 mg Tablet Extended Release 650 mg PO BEDTIME Follow up/Referrals: Elda Schwarz MD [Physician] - (Two weeks as scheduled) Ki Islas MD [Primary Care Provider] - Diet/Activity/Treatments Diet: Diet as Tolerated Other treatments: Medications: -may restart your Eliquis tomorrow (postoperative day 1) -OTC Tylenol 500 mg 1 tablet every 4 hours as needed for pain/fever. Max 6 tablets per day. (take scheduled every 4-6 hours for the first few days to week after schedule to help stay on top of your pain) (max 3000 mg in a 24 hour period) -hydrocodone/acetaminophen 5/325 mg take 1-2 tablets every 4-6 hours as needed for moderate-severe pain (narcotic pain medication). -ondansetron 4mg - 1 tab every 8 hours as needed for nausea -As needed medications: -Ducolax and /or MiraLax as needed for constipation from narcotic pain medications. -Pepcid AC as needed for stomach upset (usually from aspirin or ibuprofen). Dressing/Wound care: -Remove the Maxi wrap 48 hours after surgery. -Keep Aquacell or brisa dressing in place until postoperative follow-up office visit. -Okay to shower. Keep wound out of direct water stream. No soaking or submerging until all the scabs fall off (approximately 4-6 weeks). -if you have a brisa dressing in place, there is a battery attached that creates suction. this will work for 7 days then the batteries will automatically shut off, at this point you can cut off the tubing but leave the bandage in place at that point it will act like a regular bandage and will stay in place until your follow-up appointment. -No lotions, ointments, or scar creams directly to the incision until the wound is healed (4-6 weeks), -Please call the office if dressing becomes wet, soiled, or saturated. Activities: -Weight-bearing as tolerated. Use front wheeled walker, and progress to cane when safe. -Continue with home exercises as directed by your physical therapist. (work on getting your leg. knee fully straight and bending knee as well- motion after knee replacement is very important) -should have outpatient Physical Therapy visits set up to start within 1 week after surgery -make sure you emphasize getting your knee fully straight. You can put a pillow under your heel to help this, please do not rest with a pillow under your knee as this will hinder your ability to get your knee fully straight. -Ice your incision as needed for pain/inflammation/swelling. Protect your skin with a folded pillowcase. -Incentive Spirometer (breathing device from hospital): 5-10xs every hour while awake for the first 1-2 weeks. Follow-up: -Follow-up with your surgeon or PA in the office in 10-14 days after surgery. -Follow-up with your surgeon 6 weeks postoperatively. Contact the office if you have any of the following: ? Painful swelling or numbness ? Unrelenting pain ? Fever (over 101?- it is normal to have a low grade fever for the first day or two following surgery) or chills ? Redness around the incisions ? Color changes ? Continuous bleeding or drainage from the incision (a small amount is expected) ? Excessive nausea or vomiting ? Difficulty breathing If you have an emergency that requires immediate attention such as shortness of breath or chest pain, call 911 or proceed to the nearest emergency room. [facility]: [phone] Pain Medications: It is the policy of [facility] that narcotic medications will only be refilled during office hours. Additionally, due to the alarming rate of narcotic pain medication abuse/dependence, it has become necessary for physician practices to closely manage patient use of prescription narcotic pain relievers, such as Vicodin ([place]), Percocet, and Oxycodone products. Narcotic pain management in the postoperative period may not exceed 6 weeks. If narcotic pain management is required beyond 90 days, then a referral to a Chronic Pain Specialist will be made. If a request for a medication prescription of refill has been made, the physician must review your chart prior to authorizing the request. Please be patient with office staff. If you call during patient hours, your call may not be returned until the end of the day. Skin/Wound/Dressing Care Report to your healthcare provider any signs of infection, such as:: chills, fever, night sweats, increased pain, unusual drainage and unusual redness Visit Report/Discharge Packet Instructions: DI for Knee Replacement Stand Alone Forms: Patient Portal/API, Surgery Discharge Discharge Data Primary Care Provider: Ki Islas Attending Provider: Elda Schwarz VTE Deep Vein Thrombosis/Pulmonary Embolism Present on Admission: No
--- NOTE | 2023-03-20 10:53 | PT.IIE ---
Current Diagnoses Bilateral primary osteoarthritis of knee (03/19/23) Unilateral primary osteoarthritis, left knee (03/19/23) Other specified joint disorders, unspecified knee (03/19/23) Surgery Performed Operation Date: 03/19/23 07:45 Actual Procedures p Total Knee Arthroplasty(Left) - Elda Schwarz MD Surgical History (Last Reviewed 03/20/23 @ 09:38 by Arslan Hatch PA-C) History of bladder suspension procedure History of partial hysterectomy History of partial pancreatectomy History of total right knee replacement (2008) Status post surgery (06/15/11) Medical History (Last Reviewed 03/20/23 @ 09:38 by Arslan Hatch PA-C) Acute hypokalemia Acute pancreatitis Candidal intertrigo Chronic renal disease Elevated alkaline phosphatase level Facial eczema Fall from slipping on ice Ganglion cyst GERD (gastroesophageal reflux disease) History of genitourinary disorders unknown Hypertension Longstanding persistent atrial fibrillation Morbid obesity due to excess calories (06/12/16) New onset a-fib Pancreatic mass Primary pancreatic neuroendocrine tumor Pyelonephritis Vertigo Physical Therapy Inpatient Evaluation/Re-Eval M1 PT/OT-IP Prior Functional Status Start: 03/20/23 10:32 Freq: NEEDED Status: Active Protocol: Document 03/20/23 10:32 ES (Rec: 03/20/23 10:53 ES [id number]) Medical Review Prior Functional Status Medical History Reviewed Yes Diet/Fluid Consistency Regular Communication WFL Mobility and Gait Indep without AD Activities of Daily Living and IADL's Indep Social History Household Members spouse Living Arrangements House Number of Floors (Floors) One Floor Number of Stairs To Enter/Railing? 3 with wide B rails, uses L side to ascend Home Environment High Toilet,Walk in Shower,Tub /Shower Home Equipment Front Wheel Walker,Hand Held Shower,Grab Bars Near Toilet Employment Status Retired Additional Social History Comment Patient's sister is staying with her as long as needed and is familiar with TKA recovery . M2 PT-IP Current Condition Start: 03/20/23 10:32 Freq: NEEDED Status: Active Protocol: Document 03/20/23 10:32 ES (Rec: 03/20/23 10:53 ES [id number]) Physical Therapy Current Condition Current Condition Evaluation Date 03/20/23 Treatment Diagnosis S/p L TKA Onset Date 03/19/23 M3 PT-IP Subjective Start: 03/20/23 10:32 Freq: NEEDED Status: Active Protocol: Document 03/20/23 10:32 ES (Rec: 03/20/23 10:53 ES [id number]) Subjective Physical Therapy Visit Type Type Initial Evaluation Visit Start Time 08:46 Visit Stop Time 09:32 Total Visit Minutes 46 Physical Therapy Visit Comments Patient Comments Patient reported she has not been up since surgery, has been using purewick in the bed . Patient reported some soreness in her L knee, had received pain meds already this morning and agreeable to work with PT. Patient stated she had her R TKA done in 2008 and has been to PT prior to this surgery and is familiar with the exercises. Patient Goals To go home today. Therapy Pain Assessment Pain When Pain Assessed During Mobility Pain Present Pain Present Pain Reported Location Left Knee Description With Movement Pain Management Techniques Re-positioning,Timing of Activity with Medications M4 PT-IP Mobility and Gait Start: 03/20/23 10:32 Freq: NEEDED Status: Active Protocol: Document 03/20/23 10:32 ES (Rec: 03/20/23 10:53 ES [id number]) PT-Bed Mobility Assessment Supine to Sit Supine to Sit Minimal Assistance Sit to Supine Sit to Supine Moderate Assistance,Bedrails Scooting Scooting to Edge of Bed Standby Assistance PT-Transfer Assessment Comments Mobility Comments Did not attempt transfer/ standing due to dizziness upon sitting EOB. Patient was returned to supine and BP was taken, was in 140's/70's supine. Patient reported decreased dizziness once back in supine. RN notified. PT-Balance Assessment Sitting Balance and Reactions Static Sitting Balance Ability Good Dynamic Sitting Balance Ability Good M5 PT-IP Objective Assessments Start: 03/20/23 10:32 Freq: NEEDED Status: Active Protocol: Document 03/20/23 10:32 ES (Rec: 03/20/23 10:53 ES [id number]) Orientation Orientation/Cognition Level of Alertness Alert Orientation Name,Age,Birthday,Month,Date, Year,Day of Week,Place, Situation Language Function Ability No Deficits Noted Safety Awareness Understands Safety Issues Memory Description No Deficits Noted Gross Range of Motion Upper Extremity ROM Assessment Within Functional Limits Lower Extremity ROM Assessment Left Impaired Impairments L knee limited 2/2 surgery Strength Upper Extremity Strength Assessment Within Functional Limits Lower Extremity Strength Assessment Left Impaired Hip WFL Knee Grossly 3-/5 Ankle WFL Coordination Assessment Gross Coordination Gross Coordination WNL Sensation Assessment Sensation Gross Sensation WNL M6 PT-IP Treatment Start: 03/20/23 10:32 Freq: NEEDED Status: Active Protocol: Document 03/20/23 10:32 ES (Rec: 03/20/23 10:53 ES [id number]) Physical Therapy Treatment Exercises Exercises Ankle Pumps,Quad Sets,Heel Slides,Straight Leg Raises, Short Arc Quads,Passive Knee Extension Hang,Seated Knee Flexion/Extension Knee ROM Measurement 5-85 degrees L knee flexion in sitting Education Education Provided Precautions,Weight Bearing Status,Post-Op Packet,Safety M7 PT-IP Assessment and Plan Start: 03/20/23 10:32 Freq: NEEDED Status: Active Protocol: Document 03/20/23 10:32 ES (Rec: 03/20/23 10:53 ES [id number]) PT Summary Assessment and Plan Potential Rehabilitation Potential Good Status of Condition at Evaluation Evolving Summary Impairments Pain,ROM,Strength,Bed Mobility ,Transfers,Gait,Activity Tolerance Assessment Summary Patient is a 78 year old female s/p L TKA who presents with impaired mobility due to the above problems. Patient was unable to tolerate sitting due to onset of dizziness, improved when placed back in supine. BP was not taken in sitting but assumed hypotensive. Patient required some assistance performing TKA HEP due to L quad weakness, knee stiffness, and pain. She will need further PT to be able to meet goals for home d/ c. Anticipate home with family assistance when goals are met either today or tomorrow depending on progress with PT. Goals Bed Mobility Goal Standby Assistance Transfer Goal Standby Assistance,Front Wheeled Walker Gait Goal Standby Assistance,Front Wheel Walker Gait Distance 100 Other Goals Patient will be able to ascend /descend 3 stairs with single rail and LRAD with CGA. Patient will be indep with TKA HEP. Days to Meet Goals 3 Frequency of Treatment Frequency Of Treatment Twice a Day Treatment Plan Physical Therapy Treatment Plan Bed Mobility Training,Transfer Training,Gait Training, Therapeutic Exercise,Post Op Education,Discharge Planning, Hot or Cold Pack,Manual Therapy Other Recommendations and Next Treatment Review TKA ex's. Progress to Focus standing/transfers/gait/stairs as tolerated. Weight Bearing Status Weight Bearing Status Weight Bear as Tolerated Recommendations To Nursing Amount of Assist Needed 1 Person Assist Discharge Recommendations PT Discharge Recommendations Home with Assistance, Outpatient PT Equipment Needed for Home Before Recommended shower chair for Discharge home. Transportation Needs at Discharge Private Vehicle
--- NOTE | 2023-03-20 13:40 | PT.IPTN ---
Current Diagnoses Bilateral primary osteoarthritis of knee (03/19/23) Unilateral primary osteoarthritis, left knee (03/19/23) Other specified joint disorders, unspecified knee (03/19/23) Surgery Performed Operation Date: 03/19/23 07:45 Actual Procedures p Total Knee Arthroplasty(Left) - Elda Schwarz MD Physical Therapy Treatment Note M2 PT-IP Current Condition Start: 03/20/23 10:32 Freq: NEEDED Status: Active Protocol: Document 03/20/23 10:32 ES (Rec: 03/20/23 10:53 ES [id number]) Physical Therapy Current Condition Current Condition Evaluation Date 03/20/23 Treatment Diagnosis S/p L TKA Onset Date 03/19/23 M3 PT-IP Subjective Start: 03/20/23 10:32 Freq: NEEDED Status: Active Protocol: Document 03/20/23 14:23 TS (Rec: 03/20/23 14:43 TS [id number]) Subjective Physical Therapy Visit Type Type Treatment Note Visit Start Time 13:40 Visit Stop Time 14:20 Total Visit Minutes 40 Notes BP:156/82 supine, 123/75 standing, 116/77 sitting EOB. Number of DIRECTOR MARKET RESEARCH Visits 1 Physical Therapy Visit Comments Patient Comments Pt reports getting up with nursing this afternoon to toilet, went well and had no c /o dizziness, agreeable to PT. Therapy Pain Assessment Pain When Pain Assessed During Mobility Pain Present Pain Present Pain Reported Location Left Knee Description With Movement Pain Management Techniques Re-positioning,Timing of Activity with Medications M4 PT-IP Mobility and Gait Start: 03/20/23 10:32 Freq: NEEDED Status: Active Protocol: Document 03/20/23 14:23 TS (Rec: 03/20/23 14:43 TS [id number]) PT-Bed Mobility Assessment Supine to Sit Supine to Sit Minimal Assistance Sit to Supine Sit to Supine Minimal Assistance,Bedrails Scooting Scooting to Edge of Bed Minimal Assistance Scooting Up and Down in Bed Standby Assistance PT-Transfer Assessment Sit to and From Stand Sit to and from Stand Contact Guard Assistance Comments Mobility Comments Pt found resting in bed, agreeable to PT session. Supine to sit Kaitlyn for LLE off EOB, cues for BUE support. Scooted with increased effort EOB CGA, cues for L hip forward and feet flat. Sit to stand CGA with FWW, provided cues for BUE support on bed, weight forward and knee ext. In stadning pt complained of dizziness, BP 123/75, requred to sit, BP 116/77. Pt requested back to bed, sit to supine Kaitlyn LLE into bed. Pt scooted HOB SBA with cues for RLE assist and handrail. Gait Assessment Comments Gait Comments Unable at this time. PT-Balance Assessment Sitting Balance and Reactions Static Sitting Balance Ability Good Dynamic Sitting Balance Ability Good M5 PT-IP Objective Assessments Start: 03/20/23 10:32 Freq: NEEDED Status: Active Protocol: Document 03/20/23 10:32 ES (Rec: 03/20/23 10:53 ES [id number]) Orientation Orientation/Cognition Level of Alertness Alert Orientation Name,Age,Birthday,Month,Date, Year,Day of Week,Place, Situation Language Function Ability No Deficits Noted Safety Awareness Understands Safety Issues Memory Description No Deficits Noted Gross Range of Motion Upper Extremity ROM Assessment Within Functional Limits Lower Extremity ROM Assessment Left Impaired Impairments L knee limited 2/2 surgery Strength Upper Extremity Strength Assessment Within Functional Limits Lower Extremity Strength Assessment Left Impaired Hip WFL Knee Grossly 3-/5 Ankle WFL Coordination Assessment Gross Coordination Gross Coordination WNL Sensation Assessment Sensation Gross Sensation WNL M6 PT-IP Treatment Start: 03/20/23 10:32 Freq: NEEDED Status: Active Protocol: Document 03/20/23 14:23 TS (Rec: 03/20/23 14:43 TS [id number]) Physical Therapy Treatment Exercises Exercises Ankle Pumps,Quad Sets,Heel Slides,Straight Leg Raises, Short Arc Quads,Passive Knee Extension Hang,Seated Knee Flexion/Extension Knee ROM Measurement 5-85 degrees L knee flexion in sitting Education Education Provided Precautions,Weight Bearing Status,Post-Op Packet,Safety M7 PT-IP Assessment and Plan Start: 03/20/23 10:32 Freq: NEEDED Status: Active Protocol: Document 03/20/23 14:23 TS (Rec: 03/20/23 14:43 TS [id number]) PT Summary Assessment and Plan Potential Rehabilitation Potential Good Status of Condition at Evaluation Evolving Summary Impairments Pain,ROM,Strength,Bed Mobility ,Transfers,Gait,Activity Tolerance Assessment Summary Pt requires Kaitlyn for LLE for all bed mobility and is CGA for sit to stands. She continues to be hypotensive and is not progressing to ambulation with PT at this time due ot c/o dizziness, BP in supine 156/82, standing 123 /75, sitting EOB 116/77. PT continues to recommend return home with spouse and sister when medically stable. Caregiver training for 03/21 @10 :00am tomorrow. Goals Bed Mobility Goal Standby Assistance Transfer Goal Standby Assistance,Front Wheeled Walker Gait Goal Standby Assistance,Front Wheel Walker Gait Distance 100 Other Goals Patient will be able to ascend /descend 3 stairs with single rail and LRAD with CGA. Patient will be indep with TKA HEP. Days to Meet Goals 3 Frequency of Treatment Frequency Of Treatment Twice a Day Treatment Plan Physical Therapy Treatment Plan Bed Mobility Training,Transfer Training,Gait Training, Therapeutic Exercise,Post Op Education,Discharge Planning, Hot or Cold Pack,Manual Therapy Other Recommendations and Next Treatment Review TKA ex's. Progress to Focus standing/transfers/gait/stairs as tolerated. Weight Bearing Status Weight Bearing Status Weight Bear as Tolerated Recommendations To Nursing Amount of Assist Needed 1 Person Assist Discharge Recommendations PT Discharge Recommendations Home with Assistance, Outpatient PT Equipment Needed for Home Before Recommended shower chair for Discharge home. Transportation Needs at Discharge Private Vehicle
--- NOTE | 2023-03-20 13:45 | CM.DANOTE ---
Discharge Planning/Care Management CM Discharge Assessment Start: 03/20/23 13:30 Freq: Status: Active Protocol: Document 03/20/23 13:30 BIRD (Rec: 03/20/23 13:44 BIRD [id number]) Discharge Planning Assessment Assigned Risk Intern RUBÉN Herrmann DPOA/Assigned Designee Name Enrique Simons, spouse Contact Information [phone] Advance Directives? Yes Advance Directives on File No History Provided By Patient,Medical Record Prior Living Arrangements House Household Members spouse Type of transporation used prior to Drives own vehicle admit Independent with ADL's Yes Is patient alert and oriented? Yes Patient/Family Preference OP PT Therapy Barriers to Discharge No Comment Patient is a 78 yo F resident of [place]. POD1 from left TKA PCP [facility] Patient has planned for return home w/assist from her spouse and therapies have cleared her for this plan Post operative recovery slow today so discharge could be either later today vs tomorrow , home w/spouse and outpatient PT RUBÉN Crook Discharge Plan Home Transportation Arrangement Spouse Referrals Initiated None needed
[2023-03-20] MEDS: METOPROLOL ER 25 MG TABLET PO (20:58)
[2023-03-21] MEDS: HYDROCODONE/ACET 5/325 TABLET 2 TAB PO ×2 (01:11→10:19)
[2023-03-21] MEDS: HYDROCODONE/ACET 5/325 TABLET 1 TAB PO (05:21)
[2023-03-21] MEDS: PANTOPRAZOLE DR 20 MG TABLET PO (05:35)
[2023-03-21 08:00] VITALS: BP 129/60; PULSE 74; RESP 16; TEMP 37.6; O2SAT 94
[2023-03-21 10:19] VITALS: BP 129/69
[2023-03-21] MEDS: DOCUSATE 100 MG CAPSULE PO (10:19)
[2023-03-21] MEDS: LOSARTAN 50 MG TABLET PO (10:19)
[2023-03-21] MEDS: APIXABAN 5 MG TABLET PO (10:21)
[2023-03-21] MEDS: NIFEdipine 30 MG TAB ER PO (10:25)
--- NOTE | 2023-03-21 11:25 | PT.IPTN ---
Current Diagnoses Bilateral primary osteoarthritis of knee (03/19/23) Unilateral primary osteoarthritis, left knee (03/19/23) Other specified joint disorders, unspecified knee (03/19/23) Surgery Performed Operation Date: 03/19/23 07:45 Actual Procedures p Total Knee Arthroplasty(Left) - Elda Schwarz MD Physical Therapy Treatment Note M2 PT-IP Current Condition Start: 03/20/23 10:32 Freq: NEEDED Status: Active Protocol: Document 03/20/23 10:32 ES (Rec: 03/20/23 10:53 ES [id number]) Physical Therapy Current Condition Current Condition Evaluation Date 03/20/23 Treatment Diagnosis S/p L TKA Onset Date 03/19/23 M3 PT-IP Subjective Start: 03/20/23 10:32 Freq: NEEDED Status: Active Protocol: Document 03/21/23 10:20 KS (Rec: 03/21/23 12:09 KS [id number]) Subjective Physical Therapy Visit Type Type Treatment Note Visit Start Time 10:20 Visit Stop Time 11:25 Total Visit Minutes 65 Number of ARTIST SUSPECT Visits 2 Physical Therapy Visit Comments Patient Comments Denied dizziness or lightheadedness throughout treatment. Therapy Pain Assessment Pain When Pain Assessed During Mobility Pain Present Pain Present Pain Reported Location Left Knee Description With Movement Pain Management Techniques Re-positioning,Timing of Activity with Medications M4 PT-IP Mobility and Gait Start: 03/20/23 10:32 Freq: NEEDED Status: Active Protocol: Document 03/21/23 10:20 KS (Rec: 03/21/23 12:09 KS [id number]) PT-Bed Mobility Assessment Supine to Sit Supine to Sit Minimal Assistance Sit to Supine Sit to Supine Minimal Assistance,Bedrails Scooting Scooting to Edge of Bed Standby Assistance PT-Transfer Assessment Sit to and From Stand Sit to and from Stand Minimal Assistance,1 Person Assistance,Use of Upper Extremities Equipment Transfer Assistive Device Gait Belt,Front Wheeled Walker Orthotic/Prosthetic Devices or Brace: Yes Transfers Transfer Destination Bed,Wheelchair Transfer Technique ambulated Transfer Ability Level of Assist Minimal Assistance,1 Person Assistance,Use of Upper Extremities Comments Mobility Comments Pt in bed upon arrival, fitted and supplied basic knee immobilizer. Demonstrated application of immobilizer to pts family. Min A for sup<>sit and sit<>stand w/ FWW. Pt ambulated 10 ft to w/c, c/o knee immob cumbersome. Pt sat in w/c for transport to stairs and ascended/descended 3 steps w/ L handrail and CGA. Standing rest break before descending d/t fatigue. Pt w/c back to room, transferred back to bed Min A. Pts sister was able to provide appropriate assist for bed mobility, brace, gait belt, transfers, ambulation and stairs. Pt states she feels capable of going home today. Pt did demonstrate quad activation both in bed and while standing. Ambulated ~15 ft w/o brace and had no buckling. Did complain about having to wear brace, provided pt education and she agrees to wear brace until first PT visit for reassessment. Gait Assessment Gait Gait Assistance Required: Contact Guard Assist,1 Person Assist Distance (Feet) 30 Able to Maintain Weight Bearing Status Yes During Gait Assistive Devices Assistive Device Gait Belt,Front Wheeled Walker Orthotic/Prosthetic Devices or Brace: Yes Gait Deviations General Gait Pattern Step-to Gait Factors Limiting Gait Function Factors Limiting Gait Function Decreased Activity Tolerance, Decreased Strength,Limited Range of Motion,Pain,Poor Balance Comments Gait Comments Pt ambulated w/ and w/o knee immobilizer, no buckling. Step to pattern, cues to lift from hip as pt had difficulty lifting toes from floor. Gait improved w/ use of hip flexors and w/ distance but pt had quick approach to fatigue. Stair Climbing Assessment Evaluation Level of Assist On Stairs Contact Guard Assistance,1 Person Assistance Devices Stair Climbing Assistive Devices Left Railing Technique/Endurance Stair Climbing Direction Ascend and Descend Stair Climbing Technique Step to Step Number of Steps Climbed 3 Stair Climbing Set # Repetitions (reps) 1 Comments Stair Climbing Comments Pt ascended/descended 3 steps w/ L rail and CGA by her sister. Denied dizziness or lightheadedness but did become fatigued at top of stair and took ~30 sec standing rest break before descending. Pt states onlt two steps to enter home. Encouraged placement of chair outside and inside so pt can take seated rest breaks as needed. Pt and family agreeable. PT-Balance Assessment Sitting Balance and Reactions Static Sitting Balance Ability Good Dynamic Sitting Balance Ability Good Standing Balance and Reactions Static Standing Balance Ability Fair Dynamic Standing Balance Ability Fair Device Used FWW M5 PT-IP Objective Assessments Start: 05/06/23 10:32 Freq: NEEDED Status: Active Protocol: Document 03/20/23 10:32 ES (Rec: 03/20/23 10:53 ES [id number]) Orientation Orientation/Cognition Level of Alertness Alert Orientation Name,Age,Birthday,Month,Date, Year,Day of Week,Place, Situation Language Function Ability No Deficits Noted Safety Awareness Understands Safety Issues Memory Description No Deficits Noted Gross Range of Motion Upper Extremity ROM Assessment Within Functional Limits Lower Extremity ROM Assessment Left Impaired Impairments L knee limited 2/2 surgery Strength Upper Extremity Strength Assessment Within Functional Limits Lower Extremity Strength Assessment Left Impaired Hip WFL Knee Grossly 3-/5 Ankle WFL Coordination Assessment Gross Coordination Gross Coordination WNL Sensation Assessment Sensation Gross Sensation WNL M6 PT-IP Treatment Start: 03/20/23 10:32 Freq: NEEDED Status: Active Protocol: Document 03/21/23 10:20 KS (Rec: 03/21/23 12:09 KS [id number]) Physical Therapy Treatment Exercises Exercises Ankle Pumps,Gluteal Sets,Quad Sets,Straight Leg Raises Education Education Provided Precautions,Weight Bearing Status,Post-Op Packet,Safety Other Treatments Other Treatment Performed Completed caregiver training and provided knee immobilizer. M7 PT-IP Assessment and Plan Start: 03/20/23 10:32 Freq: NEEDED Status: Active Protocol: Document 03/21/23 10:20 KS (Rec: 03/21/23 12:09 KS [id number]) PT Summary Assessment and Plan Potential Rehabilitation Potential Good Summary Impairments Pain,ROM,Strength,Bed Mobility ,Transfers,Gait,Activity Tolerance Progress Towards Goals Slow Progress due to Activity Tolerance Assessment Summary Able to complete caregiver training w/ pts sister who was able to provide all necessary assistance. Pt ambulated ~30 ft and ascended/descended 3 stesp w/ L rail CGA. She complained about knee immobilizer but did agree to wear it when ambulating to prevent buckling however did demonstrate consistent quad activation this date. Denied dizziness and lightheadedness throughout. c/o high level of fatigue following treatment.Discussed getting in car and at home safety in great detail. Pt feels capable to return home w/ support. She will benefit from OPPT to improve strength, stability, and activity tolerance. Goals Bed Mobility Goal Standby Assistance Transfer Goal Standby Assistance,Front Wheeled Walker Gait Goal Standby Assistance,Front Wheel Walker Gait Distance 100 Other Goals Patient will be able to ascend /descend 3 stairs with single rail and LRAD with CGA. Patient will be indep with TKA HEP. Days to Meet Goals 3 Frequency of Treatment Frequency Of Treatment Twice a Day Treatment Plan Physical Therapy Treatment Plan Bed Mobility Training,Transfer Training,Gait Training, Therapeutic Exercise,Post Op Education,Discharge Planning, Hot or Cold Pack,Manual Therapy Weight Bearing Status Weight Bearing Status Weight Bear as Tolerated Recommendations To Nursing Amount of Assist Needed 1 Person Assist Discharge Recommendations PT Discharge Recommendations Home with Assistance, Outpatient PT Equipment Needed for Home Before Recommended shower chair for Discharge home. Transportation Needs at Discharge Private Vehicle
--- NOTE | 2023-03-21 11:50 | CM.DPC ---
DCP Discharge Home Per Ortho MD, pt medically stable to d/c home today after final PT and no identified barriers to discharge. Per RN, SALES OFFICE ASSISTANT was bedside with pt and family for a long time and completed indepth CG training and no concerns noted and pt will d/c home via family POV sometime today. Plan: Patient to d/c home via family POV today and outpt f/u and no further SW needs at this time. RUBÉN Tejeda
== END 2023-03-21 13:00 | disposition home or self-care (01) ==
LOC: OR 03-22 06:30 → AC 03-22 06:30
PROVIDERS: Admitting Provider Orthopaedic Surgery Foot and Ankle Surgery; Family Provider Family Medicine; PCP Family Medicine; Referring Provider Orthopaedic Surgery Foot and Ankle Surgery; Visit Provider Orthopaedic Surgery Foot and Ankle Surgery
PROC: 0SRD0JZ Replacement of Left Knee Joint with Synthetic Substitute, Open Approach (ICD-10-PCS; CPT 27447; principal; 2023-03-19 07:45)
DX: M17.12 Unilateral primary osteoarthritis, left knee (principal); I95.1 Orthostatic hypotension; R42 Dizziness and giddiness
CPT/HCPCS: 27447; 36415; 73560; 85014; 85018; 97110; 97116; 97162; 97530; C1776; C9803; G0378; C9290; J0171; J0690; J1100; J2405; J2704; J3010

== ENCOUNTER → 2024-02-10 12:50 | Outpatient (CLI) | payer MEDICARE, OTHER, SELFPAY ==
[2023-03-19 15:21] VITALS: BMI 34.4
[2024-02-10 13:59] LABS: Add Manual Diff / Slide Review NO; Basophils Absolute Auto 100 /uL (0-100); Eosinophils Absolute Auto 100 /uL (0-450); Hematocrit 44.3 % (36-46); Hemoglobin 14.7 g/dL (12.0-16.0); Lymphocytes Absolute Auto 2800 /uL (1100-4500); Lymphocytes Percent Auto 46.2 % (25-40); Mean Corpuscular HGB Conc 33.1 % (30-36); Mean Corpuscular Hemoglobin 31.7 PG (26-34); Mean Corpuscular Volume 95.9 fL (80-100); Monocytes Absolute Auto 500 /uL (0-900); Monocytes Percent Auto 8.2 % (3-14); Neutrophils Absolute Auto 2600 /uL (1500-7000); Neutrophils Percent Auto 43.6 % (50-75); Platelet Count 181 X10^3/uL (150-400); Red Blood Cell Count 4.62 X10^6/uL (4.0-5.2); Red Cell Distribution Width 14.2 % (11.6-14.8)
[2024-02-10 14:39] LABS: HEMOLYSIS < 15 (0-50)
[2024-02-10 14:48] LABS: Alanine Aminotransferase 19 IU/L (<35); Albumin 4.1 g/dL (3.5-5.0); Albumin Globulin Ratio 1.1 (1.0-2.8); Alkaline Phosphatase 147 U/L (38-126); Aspartate Aminotransferase 31 IU/L (14-36); BUN Creatinine Ratio 30.9 (6-22); Blood Urea Nitrogen 21 mg/dL (7-17); Calcium 9.3 mg/dL (8.4-10.2); Carbon Dioxide 28 mmol/L (22-32); Chloride 106 mmol/L (98-107); Estimated Glomerular Filt Rate > 60 mL/min (>60); Globulin 3.9 g/dL (1.7-4.1); Glucose 100 mg/dL (80-110); Potassium 3.9 mmol/L (3.4-5.1); Sodium 141 mmol/L (137-145)
[2024-02-10 15:20] LABS: TSH w/ Reflex to FT4 1.52 uIU/mL (0.47-4.68)
[2024-02-11 03:50] LABS: Vitamin B12 263 pg/mL (239-931)
== END ==
LOC: LAB 12:52
PROVIDERS: Family Provider Family Medicine; PCP Family Medicine; Referring Provider Physician Assistant; Visit Provider Physician Assistant
DX: R53.83 Other fatigue (principal); R29.898 Other symptoms and signs involving the musculoskeletal system; I48.11 Longstanding persistent atrial fibrillation; I10 Essential (primary) hypertension
CPT/HCPCS: 36415; 80053; 82607; 84443; 85025

== ENCOUNTER → 2024-03-14 11:50 | Outpatient (CLI) | payer MEDICARE, OTHER, SELFPAY ==
[2023-03-19 15:21] VITALS: BMI 34.4
--- NOTE | 2024-03-14 | DI.MG.S_ITS ---
BILATERAL DIGITAL SCREENING MAMMOGRAM 3D/2D WITH CAD: 03/14/2024 CLINICAL: Routine screening. Family history of breast cancer. Comparison is made to exams dated: 02/18/2023 mammogram, 01/13/2022 mammogram, and 11/16/2020 mammogram - [facility]. There are scattered areas of fibroglandular density in both breasts (category b / 25%-50% glandular tissue). Current study was also evaluated with a Computer Aided Detection (CAD) system. No significant masses, calcifications, or other findings are seen in either breast. There has been no significant interval change. IMPRESSION: NEGATIVE There is no mammographic evidence of malignancy. A 1 year screening mammogram is recommended. Based on the Tyrer Cuzick model (a risk assessment model) the patient's lifetime risk is 3.2% and her 10 year risk is 0.0%. According to the ACR, ACS, and NCCN guidelines, an annual breast MRI exam along with mammogram is recommended if the patient's lifetime risk is 20% or greater. This exam was interpreted at Station ID: [id number]. NOTE: For mammograms, a report in lay terms will be sent to the patient. Approximately 15% of breast malignancies will not be visualized mammographically. In the management of a palpable breast mass, a negative mammogram must not discourage biopsy of a clinically suspicious lesion. Electronically Signed By: Geoffrey min/dae:03/14/2024 12:33:14 letter sent: Normal Exam ACR BI-RADS Category 1: Negative [id number]
== END ==
PROVIDERS: Family Provider Family Medicine; PCP Family Medicine; Referring Provider Family Medicine; Visit Provider Family Medicine
DX: Z12.31 Encounter for screening mammogram for malignant neoplasm of breast (principal); Z80.3 Family history of malignant neoplasm of breast; R92.323 Mammographic fibroglandular density, bilateral breasts
CPT/HCPCS: 77063; 77067

== ENCOUNTER → 2024-04-26 11:50 | Outpatient (CLI) | payer MEDICARE, OTHER, SELFPAY ==
[2023-03-19 15:21] VITALS: BMI 34.4
[2024-04-26 15:46] LABS: Vitamin B12 > 1000 pg/mL (239-931)
== END ==
PROVIDERS: Family Provider Family Medicine; PCP Family Medicine; Referring Provider Physician Assistant; Visit Provider Physician Assistant
DX: E53.8 Deficiency of other specified B group vitamins (principal)
CPT/HCPCS: 36415; 82607

== ENCOUNTER → 2024-09-07 12:38 | Outpatient (CLI) | payer MEDICARE, OTHER, SELFPAY ==
[2023-03-19 15:21] VITALS: BMI 34.4
[2024-09-07 15:34] LABS: Vitamin B12 955 pg/mL (239-931)
== END ==
PROVIDERS: Family Provider Family Medicine; PCP Family Medicine; Referring Provider Family Medicine; Visit Provider Family Medicine
DX: R74.8 Abnormal levels of other serum enzymes (principal)
CPT/HCPCS: 82607

== ENCOUNTER → 2024-12-13 12:31 | Outpatient (CLI) | payer MEDICARE, OTHER, SELFPAY ==
[2023-03-19 15:21] VITALS: BMI 34.4
[2024-12-13 13:10] LABS: Add Manual Diff / Slide Review NO; Basophils Absolute Auto 100 /uL (0-100); Basophils Percent Auto 1.3 % (0-2); Eosinophils Absolute Auto 100 /uL (0-450); Eosinophils Percent Auto 1.8 % (2-4); Hematocrit 34.1 % (36-46); Hemoglobin 10.8 g/dL (12.0-16.0); Lymphocytes Absolute Auto 2900 /uL (1100-4500); Lymphocytes Percent Auto 59.5 % (25-40); Mean Corpuscular HGB Conc 31.7 % (30-36); Mean Corpuscular Hemoglobin 29.5 PG (26-34); Mean Corpuscular Volume 93.1 fL (80-100); Monocytes Absolute Auto 500 /uL (0-900); Monocytes Percent Auto 10.1 % (3-14); Neutrophils Absolute Auto 1300 /uL (1500-7000); Neutrophils Percent Auto 27.3 % (50-75); Platelet Count 327 X10^3/uL (150-400); Red Blood Cell Count 3.67 X10^6/uL (4.0-5.2); Red Cell Distribution Width 15.1 % (11.6-14.8); White Blood Cell Count 4.9 X10^3/uL (4.5-11.0)
[2024-12-13 13:26] LABS: Alanine Aminotransferase 16 IU/L (<35); Albumin 4.3 g/dL (3.5-5.0); Albumin Globulin Ratio 1.2 (1.0-2.8); Alkaline Phosphatase 122 U/L (38-126); Aspartate Aminotransferase 29 IU/L (14-36); BUN Creatinine Ratio 30.3 (6-22); Bilirubin Total 0.4 mg/dL (0.2-1.3); Blood Urea Nitrogen 23 mg/dL (7-17); Calcium 9.2 mg/dL (8.4-10.2); Carbon Dioxide 24 mmol/L (22-32); Chloride 106 mmol/L (98-107); Estimated Glomerular Filt Rate > 60 mL/min (>60); Globulin 3.7 g/dL (1.7-4.1); Glucose 104 mg/dL (80-110); HEMOLYSIS < 15 (0-50); Potassium 3.9 mmol/L (3.4-5.1); Sodium 138 mmol/L (137-145)
[2024-12-13 13:57] LABS: TSH w/ Reflex to FT4 1.28 uIU/mL (0.47-4.68)
[2024-12-13 14:17] LABS: Vitamin B12 840 pg/mL (239-931)
[2024-12-14 14:26] LABS: HEMOLYSIS < 15 (0-50); Iron 24 ug/dL (37-170)
[2024-12-14 14:37] LABS: Percent Iron Saturation 6 % (15-50); Total Iron Binding Capacity 407 ug/dL (265-497); Transferrin 389 mg/dL (206-381)
[2024-12-14 15:02] LABS: Ferritin 10 ng/mL (11-264)
== END ==
PROVIDERS: Family Provider Family Medicine; PCP Family Medicine; Referring Provider Physician Assistant; Visit Provider Physician Assistant
DX: I48.11 Longstanding persistent atrial fibrillation (principal); I10 Essential (primary) hypertension; E53.8 Deficiency of other specified B group vitamins; D64.9 Anemia, unspecified
CPT/HCPCS: 36415; 80053; 82607; 82728; 83540; 83550; 84443; 85025

== ENCOUNTER → 2025-01-05 09:18 | Outpatient (CLI) | payer MEDICARE, OTHER, SELFPAY ==
[2023-03-19 15:21] VITALS: BMI 34.4
--- NOTE | 2025-01-05 09:19 | DI.US.S_ITS ---
PROCEDURE: US RENAL COMPLETE INDICATIONS: PAINLESS HEMATURIA TECHNIQUE: Real-time scanning was performed of the kidneys and bladder, with image documentation. COMPARISON: [facility], CT, CT KIDNEY URETER BLADDER (KUB), 09/09/2020, 22:10. FINDINGS: Kidneys: Kidneys are normal in size. Right kidney measures 8.8 cm long; left kidney measures 10.7 cm long. Right renal cortical thickness is 0.8 cm; left renal cortical thickness is 1.5 cm. Renal cortical echotexture is normal. No hydronephrosis or nephrolithiasis. No suspicious solid mass lesions. Bladder: images demonstrate no intraluminal masses or stones. On pre-void images, neither ureteral jets are noted with color Doppler interrogation. (Of note, ureteral jets may not be detectable in up to 25% of cases due to insufficient differences in specific gravity between ureteral and bladder urine). Miscellaneous: No free pelvic fluid. IMPRESSION: Exam is significantly limited by body habitus. Probable right renal atrophy. Consider follow-up CT evaluation Approved by: Ryan Jauregui M.D. on 01/05/2025 at 17:40
--- NOTE | 2025-01-05 09:19 | DI.ECHO.S_ITS ---
[facility] [facility]+ [facility] : : [address] : : [place] : : [id number] : : Phone: [phone] Echocardiogram Report + + :Name: CLARIBEL SANCHEZ Study Date: 01/05/2025 Height: 67 in : :[facility] ReadingLocation: Weight: 230 lb : : Gender: Female BSA: 2.1 m2 : :: 1945 Age: 79 yrs BP: 142/82 mmHg: :Reason For Study: AORTIC STENOSIS, INCREASED SOSA : :Ordering Physician: RITA, : :LOYDA Arroyo Performed By: Ki Babcock : :Referring: LOYDA SALINAS : + + Interpretation Summary Chronic A-fib with controlled ventricular rate. The left ventricle is normal in size. The ejection fraction is estimated to be 55-60%. Previous LVEF 60 to 65%. The right ventricle is normal in size and function. The aortic valve is moderately calcified. There is moderate to severely reduced leaflet mobility. The peak aortic velocity is 2.67 m/sec. The aortic valve mean gradient is 17.0 mmHg. Stroke-volume index about 25 mL/mA?. The calculated aortic valve area is 0.94 cm2. Based on LV outflow tract diameter about 2.0 cm. The peak aortic velocity on the previous exam was 2.35 m/sec. sev ratio: 0.30 Overall moderate to severe aortic stenosis. There is a worsening of aortic stenosis. There is mild to moderate tricuspid regurgitation. The right ventricular systolic pressure is estimated to be at least 49 mmHg based on an estimated right atrial pressure of 15 mm Hg. Previously 35 mmHg. There is mild luminal irregularity and echogenicity in the abdominal aorta, suggestive of aortic atherosclerotic disease. Mild atherosclerotic plaque(s) in the aortic arch. Procedure: A two-dimensional transthoracic echocardiogram with color flow and Doppler was performed. The study quality was technically good. Comparison is made with the echocardiogram of 07/17/2022. The patient was in atrial fibrillation with heart rates between 57-76 bpm during the exam. Left Ventricle: The left ventricle is normal in size. There is normal left ventricular wall thickness. There is no thrombus. The ejection fraction is estimated to be 55-60%. There are no focal wall motion abnormalities. Diastolic function could not be accurately assessed due to atrial fibrillation. Right Ventricle: The right ventricle is normal in size and function. Atria: The left atrium is severely dilated. The left atrium has mildly increased in size since the prior echo exam. The right atrium is mildly dilated. There is no Doppler evidence for an atrial septal defect. Mitral Valve: There is mild to moderate mitral annular calcification. The mitral valve leaflets appear mildly thickened, but open well. There is mild mitral regurgitation. Compared to the prior echo study, there has been no change in the severity of mitral regurgitation. Aortic Valve: The aortic valve is moderately calcified. There is moderate to severely reduced leaflet mobility. The aortic valve is trileaflet. There is moderate aortic stenosis. The calculated aortic valve area is 0.94 cm2. The peak aortic velocity is 2.67 m/sec. The aortic valve mean gradient is 17.0 mmHg. The peak aortic velocity on the previous exam was 2.35 m/sec. There is trace aortic regurgitation. Tricuspid Valve: The tricuspid valve is not well visualized. There is mild to moderate tricuspid regurgitation. The right ventricular systolic pressure is estimated to be at least 49 mmHg based on an estimated right atrial pressure of 15 mm Hg. Pulmonic Valve: The pulmonic valve is not well seen, but is grossly normal. There is trace pulmonic regurgitation. Great Vessels: The aortic root is normal size. The dimensions of the ascending aorta are normal. There is mild luminal irregularity and echogenicity in the abdominal aorta, suggestive of aortic atherosclerotic disease. Mild atherosclerotic plaque(s) in the aortic arch. The pulmonary artery is normal size. The IVC is dilated (diameter is greater than 2.1 cm) and it collapses less than 50% with a sniff. This suggests a high right atrial pressure of 15 mm Hg. Pericardium/ Pleura There is no pericardial effusion. There is no pleural effusion. MMode/2D Measurements & Calculations LVIDd: 4.8 cm LVOT diam: 1.9 cm LVIDs: 3.4 cm Ao root diam: 2.8 cm FS: 27.6 % asc Aorta Diam: 3.3 cm EPSS: 1.0 cm IVSd: 1.1 cm LVPWd: 0.82 cm LV fox. diameter/BSA (cm/m^2): 2.2 LV sys. diameter/BSA (cm/m^2): 1.6 LA A2 area: 23.3 cm2 RA long axis: 5.1 cm LA A4 area: 30.7 cm2 RA area: 18.7 cm2 LA length (vol): 6.4 cm RA vol: 57.7 ml LA vol: 94.6 ml RA : 26.9 ml/m2 LA vol index: 44.1 ml/m2 IVC diam: 2.3 cm RVD1 (basal): 3.2 cm RVD2 (mid): 2.0 cm TAPSE: 2.3 cm Doppler Measurements & Calculations Ao V2 max: 267.4 cm/sec LVOT Max Inocencio: 82.4 cm/sec Ao V2 mean: 196.7 cm/sec LV V1 max P.7 mmHg Ao max P.6 mmHg LV V1 VTI: 20.3 cm Ao mean P.0 mmHg CANDIE(I,D): 0.88 cm2 Ao V2 VTI: 68.1 cm CANDIE(V,D): 0.91 cm2 sev ratio: 0.30 CANDIE indexed to BSA (cm^2/m^2): 0.41 MV E max inocencio: 123.3 cm/sec TR max inocencio: 293.2 cm/sec MV A max inocencio: 31.5 cm/sec TR max P.4 mmHg MV E/A: 3.9 PA V2 max: 64.6 cm/sec Med Peak E' Inocencio: 4.9 cm/sec PA V2 mean: 40.5 cm/sec E/E' med: 25.0 PA mean P.75 mmHg Lat Peak E' Inocencio: 7.3 cm/sec PA pr(Accel): 43.0 mmHg E/E' lat: 16.9 E/e' average: 21.0 MV dec time: 0.20 sec SV(LVOT): 59.8 ml Reading Physician:05:03 PM
== END ==
PROVIDERS: Family Provider Family Medicine; PCP Family Medicine; Referring Provider Physician Assistant; Visit Provider Physician Assistant
DX: I08.3 Combined rheumatic disorders of mitral, aortic and tricuspid valves (principal); I10 Essential (primary) hypertension; I48.11 Longstanding persistent atrial fibrillation; I70.0 Atherosclerosis of aorta; R31.9 Hematuria, unspecified; Z79.01 Long term (current) use of anticoagulants
CPT/HCPCS: 76770; 93306

== ENCOUNTER → 2025-01-18 15:15 | Outpatient (CLI) | payer MEDICARE, OTHER, SELFPAY ==
[2023-03-19 15:21] VITALS: BMI 34.4
[2025-01-18 15:42] LABS: Hematocrit 33.8 % (36-46); Hemoglobin 10.7 g/dL (12.0-16.0)
[2025-01-18 15:57] LABS: Appearance Urine UA SL CLOUDY; Bilirubin Urine UA NEGATIVE (NEGATIVE); Color Urine UA YELLOW; Glucose Urine UA NEGATIVE (Negative); Ketones Urine UA NEGATIVE (NEGATIVE); Leukocyte Esterase Urine UA 2+ (NEGATIVE); Nitrite Urine UA POSITIVE (Negative); Occult Blood Urine UA 3+ (Negative); Protein Urine UA TRACE (Negative); Specific Gravity Urine UA 1.025 (1.000-1.035)
[2025-01-18 16:02] LABS: Bacteria Urine Many (>30); RBC Urine 10-30/HPF (0-5/HPF); Squamous Epithelial Cell Urine 1-5 /HPF (0-5/HPF); Urine Volume 10mL (spun); WBC Urine 30-100/HPF (0-5/HPF); pH Urine UA 5.5 (4.5-8.0)
[2025-01-18 16:03] LABS: Culture Indicated Urine Specimen Cultured
[2025-01-18 16:11] LABS: HEMOLYSIS < 15 (0-50); Iron 33 ug/dL (37-170)
[2025-01-18 16:23] LABS: Percent Iron Saturation 8 % (15-50); Total Iron Binding Capacity 389 ug/dL (265-497); Transferrin 368 mg/dL (206-381)
[2025-01-18 16:34] LABS: Ferritin 10 ng/mL (11-264)
== END ==
LOC: LAB 15:18
PROVIDERS: Family Provider Family Medicine; PCP Family Medicine; Referring Provider Physician Assistant; Visit Provider Physician Assistant
DX: D50.0 Iron deficiency anemia secondary to blood loss (chronic) (principal); R31.9 Hematuria, unspecified; Z79.01 Long term (current) use of anticoagulants
CPT/HCPCS: 36415; 81001; 82728; 83540; 83550; 85014; 85018; 87077; 87086; 87186

== ENCOUNTER → 2025-01-23 09:46 | Outpatient (CLI) | payer MEDICARE, OTHER, SELFPAY ==
[2023-03-19 15:21] VITALS: BMI 34.4
--- NOTE | 2025-01-23 09:48 | DI.CT.S_ITS ---
PROCEDURE: CT ABDOMEN PELVIS W CON INDICATIONS: lower quadrant pain TECHNIQUE: After the administration of intravenous contrast, axial sections acquired from the lung bases to the pubic symphysis. Coronal and sagittal reformats were performed. For radiation dose reduction, the following was used: automated exposure control, adjustment of mA and/or kV according to patient size. COMPARISON: [facility], CT, CT ABDOMEN PELVIS W [facility], 08/27/2018, 22:14. [facility], CT, CT ABDOMEN PELVIS W CON, 10/29/2019, 10:09. FINDINGS: Image quality: Diagnostic. Lower Chest: Dependent atelectasis. No pleural effusion. Large hiatal hernia. ABDOMEN: Liver: No solid mass. Right liver is prominent. Gallbladder: Small gallstones. Biliary ducts: No biliary dilation. Pancreas: No ductal dilation. Distal pancreatectomy. Spleen: Size is within normal limits. Adrenal Glands: No adrenal nodules. Kidneys and Ureters: No hydronephrosis. Renal scarring. No solid mass. No complex renal cystic lesion which requires follow up. Stomach and Bowel: Normal colonic caliber, without significant wall thickening. Normal appendix. Diverticulosis. Peritoneum: No abnormal intraperitoneal fluid. No free air. Ventral Wall: Lower abdominal hernia containing small bowel. Abdominal Nodes: No retroperitoneal or mesenteric adenopathy by size criteria. Vessels: Aorta and inferior vena cava are normal in size. PELVIS: Pelvic Organs: Uterus is absent. Bladder: No bladder wall thickening, accounting for underdistention. No stone. Small focus of gas within the urinary bladder which is likely post catheterization. Pelvic Nodes: No enlarged lymph nodes. Miscellaneous: No inguinal hernias are seen. Bones: No aggressive osseous abnormality. DDD. IMPRESSION: 1. No acute diverticulitis. No appendicitis. No free fluid. 2. Small gallstones. Prominent right liver. Large hiatal hernia. 3. Distal pancreatectomy. No adenopathy. 4. Small focus of gas within the urinary bladder. This is favored to be related to catheterization. However, gas-forming organism could result in a similar appearance. 5. Lower abdomen hernia containing small bowel. No small bowel obstruction. Dictated by: Christian Antunez M.D. on 01/23/2025 at 16:20 Approved by: Christian Antunez M.D. on 01/23/2025 at 16:31
[2025-01-23 10:12] LABS: Estimated Glomerular Filt Rate > 60 mL/min (>60)
== END ==
LOC: CT 09:47
PROVIDERS: Family Provider Family Medicine; PCP Family Medicine; Referring Provider Family Medicine; Visit Provider Family Medicine
DX: K57.90 Diverticulosis of intestine, part unspecified, without perforation or abscess without bleeding (principal); K80.20 Calculus of gallbladder without cholecystitis without obstruction; K44.9 Diaphragmatic hernia without obstruction or gangrene; K45.8 Other specified abdominal hernia without obstruction or gangrene; J98.11 Atelectasis; R10.31 Right lower quadrant pain; Z90.411 Acquired partial absence of pancreas; Z90.710 Acquired absence of both cervix and uterus
CPT/HCPCS: 36415; 74177; 82565; Q9967

== ENCOUNTER → 2025-02-20 12:07 | Outpatient (CLI) | payer MEDICARE, OTHER, SELFPAY ==
[2023-03-19 15:21] VITALS: BMI 34.4
[2025-02-20 13:10] LABS: Blood Urea Nitrogen 17 mg/dL (7-17); Calcium 9.6 mg/dL (8.4-10.2); Carbon Dioxide 29 mmol/L (22-32); Chloride 102 mmol/L (98-107); Estimated Glomerular Filt Rate > 60 mL/min (>60); Glucose 101 mg/dL (80-110); HEMOLYSIS < 15 (0-50); Potassium 4.1 mmol/L (3.4-5.1); Sodium 141 mmol/L (137-145)
== END ==
PROVIDERS: Family Provider Family Medicine; PCP Family Medicine; Referring Provider Physician Assistant; Visit Provider Physician Assistant
DX: I10 Essential (primary) hypertension (principal)
CPT/HCPCS: 36415; 80048

== ENCOUNTER → 2025-03-07 11:57 | Outpatient (CLI) | payer MEDICARE, OTHER, SELFPAY ==
[2023-03-19 15:21] VITALS: BMI 34.4
[2025-03-07 13:19] LABS: Hematocrit 43.6 % (36-46); Hemoglobin 13.9 g/dL (12.0-16.0)
[2025-03-07 13:37] LABS: HEMOLYSIS < 15 (0-50); Iron 98 ug/dL (37-170)
[2025-03-07 13:42] LABS: BUN Creatinine Ratio 27.4 (6-22); Blood Urea Nitrogen 23 mg/dL (7-17); Calcium 9.5 mg/dL (8.4-10.2); Carbon Dioxide 29 mmol/L (22-32); Chloride 102 mmol/L (98-107); Estimated Glomerular Filt Rate > 60 mL/min (>60); Glucose 98 mg/dL (70-99); HEMOLYSIS 19 (0-50); Potassium 4.3 mmol/L (3.4-5.1); Sodium 141 mmol/L (137-145)
[2025-03-07 13:49] LABS: Percent Iron Saturation 31 % (15-50); Total Iron Binding Capacity 320 ug/dL (265-497); Transferrin 277 mg/dL (206-381)
[2025-03-07 14:13] LABS: Ferritin 118 ng/mL (11-264)
== END ==
PROVIDERS: Family Provider Family Medicine; PCP Family Medicine; Referring Provider Physician Assistant; Visit Provider Physician Assistant
DX: D50.9 Iron deficiency anemia, unspecified (principal); W19.XXXA Unspecified fall, initial encounter; I10 Essential (primary) hypertension
CPT/HCPCS: 36415; 80048; 82728; 83540; 83550; 85014; 85018

== ENCOUNTER → 2025-05-02 11:10 | Outpatient (CLI) | payer MEDICARE, OTHER, SELFPAY ==
[2023-03-19 15:21] VITALS: BMI 34.4
--- NOTE | 2025-05-02 11:12 | DI.MG.S_ITS ---
MM screening mammo BI: 05/02/2025. BI-RADS: 1 CLINICAL: 80-year old female for bilateral screening mammogram. Tyrer-Cuzick lifetime risk of 1.2%. No personal or first-degree family history of breast cancer. PRIOR EXAMS 03/14/2024, 02/18/2023, 01/13/2022, 12/12/2020. MAMMOGRAPHY TECHNIQUE: 2D and 3D (tomosynthesis) digital mammographic views obtained, with additional images as needed for full coverage. Current study was also evaluated with a Computer Aided Detection (CAD) system. DENSITY A. The breasts are almost entirely fatty. MAMMOGRAPHY FINDINGS Bilateral: No suspicious mass, asymmetry, microcalcification, or other abnormality seen. No significant change from comparison. IMPRESSION: * No evidence of malignancy. RECOMMENDATIONS Bilateral * Annual screening mammography. OVERALL ASSESSMENT CATEGORY BI-RADS-1: Negative. [employer] recommends annual screening mammography beginning at age 40 for women with average risk of breast cancer. ELECTRONICALLY SIGNED: Graciela Hatfield M.D. on 05/05/2025 at 01:34:27 PM PT Interpreting Station ID: [id number]
== END ==
PROVIDERS: Family Provider Family Medicine; PCP Family Medicine; Referring Provider Family Medicine; Visit Provider Family Medicine
DX: Z12.31 Encounter for screening mammogram for malignant neoplasm of breast (principal); R92.313 Mammographic fatty tissue density, bilateral breasts
CPT/HCPCS: 77063; 77067

== ENCOUNTER → 2025-06-01 10:25 | Outpatient (CLI) | payer MEDICARE, OTHER, SELFPAY ==
[2023-03-19 15:21] VITALS: BMI 34.4
[2025-06-01 11:57] LABS: Hematocrit 42.3 % (36-46); Hemoglobin 14.2 g/dL (12.0-16.0)
[2025-06-01 12:39] LABS: HEMOLYSIS < 15 (0-50); Iron 80 ug/dL (37-170)
[2025-06-01 12:51] LABS: Percent Iron Saturation 24 % (15-50); Total Iron Binding Capacity 331 ug/dL (265-497); Transferrin 280 mg/dL (206-381)
[2025-06-01 13:18] LABS: Ferritin 47 ng/mL (11-264)
== END ==
PROVIDERS: Family Provider Family Medicine; PCP Family Medicine; Referring Provider Physician Assistant; Visit Provider Physician Assistant
DX: D50.0 Iron deficiency anemia secondary to blood loss (chronic) (principal)
CPT/HCPCS: 36415; 82728; 83540; 83550; 85014; 85018

== ENCOUNTER → 2025-09-07 10:37 | Outpatient (CLI) | payer MEDICARE, OTHER, SELFPAY ==
[2023-03-19 15:21] VITALS: BMI 34.4
[2025-09-07 11:18] LABS: Hematocrit 44.2 % (36-46); Hemoglobin 14.8 g/dL (12.0-16.0)
[2025-09-07 11:51] LABS: HEMOLYSIS < 15 (0-50); Iron 116 ug/dL (37-170)
[2025-09-07 12:02] LABS: Percent Iron Saturation 34 % (15-50); Total Iron Binding Capacity 337 ug/dL (265-497); Transferrin 298 mg/dL (206-381)
[2025-09-07 12:24] LABS: Ferritin 48 ng/mL (11-264)
== END ==
PROVIDERS: Family Provider Family Medicine; PCP Family Medicine; Referring Provider Physician Assistant; Visit Provider Physician Assistant
DX: D50.0 Iron deficiency anemia secondary to blood loss (chronic) (principal)
CPT/HCPCS: 36415; 82728; 83540; 83550; 85014; 85018